=== PATIENT | male | born 1960 | race American Indian/Alaskan Native ===

== ENCOUNTER 2020-05-07 11:06 | Observation (INO) | payer MEDICARE ==
--- NOTE | 2020-05-07 12:12 | Emergency Department Report ---
ED Neuro Deficit HPI - General Chief Complaint: Neuro Symptoms/Deficit Stated Complaint: AMINAH Time Seen by Provider: 05/07/20 11:45 Source: patient, EMS Mode of arrival: Stretcher Limitations: No Limitations - History of Present Illness Initial Comments: [facility]urology Consult [facility] Date of Service: 05/07/2020 11:42:18 Impression: Small Vessel Infarct Comments/Sign-Out: The patient is Not a candidate for alteplase as his last known well is unknown. I will suggest stat CT angiogramOf the head and neck stat along with CT p erfusion studies to rule out large vessel occlusion. Mechanism of Stroke: Possible Thromboembolic Metrics: Last Known Well: Unknown [facility] Notification Time: 05/07/2020 11:41:39 Stamp Time: 05/07/2020 11:42:18 Time First Login Attempt: 05/07/2020 11:45:50 Video Start Time: 05/07/2020 11:45:50 Symptoms: Slurred speech, facial droop NIHSS Start Assessment Time: 05/07/2020 11:56:00 Patient is not a candidate for Alteplase/Activase. Patient was not deemed candidate for Alteplase/Activase thrombolytics because of Last known well is unknown. Video End Time: 05/07/2020 12:06:23 CT head showed no acute hemorrhage or acute core infarct. Lower Likelihood of Large Vessel Occlusion but Following Stat Studies are Recommended ED Physician notified of diagnostic impression and management plan on 05/07/2020 12:07:40 Alteplase/Activase Contraindications: Our recommendations are outlined below. Recommendations: Activate Stroke Protocol Admission/Order Set Stroke/Telemetry Floor Neuro Checks Bedside Swallow Eval DVT Prophylaxis IV Fluids, Normal Saline Head of Bed 30 Degrees Euglycemia and Avoid Hyperthermia (PRN Acetaminophen) Antiplatelet Therapy Recommended Sign Out: Discussed with Emergency Department Provider History of Present Illness: Patient is a 60 year old Male. 60-year-old male with past medical history significant for hypertension, COPD, asthma not on any medications. He does not take antiplatelets on anticoagulants for any reason. He called EMS for chest pain and shortness of breath and when he came to the emergency room it was noticed that he was having slurred speech as well. A stroke alert was called. His last known well is unknown. He is having a mild right facial droop, slurred speech. His CAT scan is negative for bleed. I will suggest CT angiogram of the head and neck and CT perfusion studies to rule out the possibility of a large vessel occlusion. He is not a TPA candidate as his last known well and medications are unknown. Past Medical History: Hypertension Anticoagulant use: No Antiplatelet use: No Examination: 1A: Level of Consciousness - Alert; keenly responsive + 0 1B: Ask Month and Age - 1 Question Right + 1 1C: Blink Eyes & Squeeze Hands - Performs Both Tasks + 0 2: Test Horizontal Extraocular Movements - Normal + 0 3: Test Visual Farris - No Visual Loss + 0 4: Test Facial Palsy (Use Grimace if Obtunded) - Minor paralysis (flat nasolabial fold, smile asymmetry) + 1 5A: Test Left Arm Motor Drift - No Drift for 10 Seconds + 0 5B: Test Right Arm Motor Drift - No Drift for 10 Seconds + 0 6A: Test Left Leg Motor Drift - No Drift for 5 Seconds + 0 6B: Test Right Leg Motor Drift - No Drift for 5 Seconds + 0 7: Test Limb Ataxia (FNF/Heel-Cintron) - No Ataxia + 0 8: Test Sensation - Normal; No sensory loss + 0 9: Test Language/Aphasia - Normal; No aphasia + 0 10: Test Dysarthria - Mild-Moderate Dysarthria: Slurring but can be understood + 1 11: Test Extinction/Inattention - No abnormality + 0 NIHSS Score: 3 Patient/Family was informed the Neurology Consult would happen via TeleHealth consult by way of interactive audio and video telecommunications and consented to receiving care in this manner. Due to the immediate potential for life-threatening deterioration due to underlying acute neurologic illness, I spent 35 minutes providing critical care. This time includes time for face to face visit via telemedicine, review of medical records, imaging studies and discussion of findings with providers, the patient and/or family. Dr Preethi Aguilar [facility] Case [id number] - Related Data Home Medications: Previous Rx's Medication Instructions Recorded Last Taken Type Albuterol Mdi (or & Nicu Only) 2 puff IH QID PRN #8.5 gram 10/29/19 Unknown Rx [ProAir HFA Inhaler] amLODIPine 10 mg PO DAILY #90 tab 10/29/19 Unknown Rx cephALEXin [Keflex] 500 mg PO Q12HR #10 cap 10/29/19 Unknown Rx lisinopriL [Zestril TAB] 20 mg PO QDAY #90 tablet 10/29/19 Unknown Rx Allergies/Adverse Reactions: Allergies Allergy/AdvReac Type Severity Reaction Status Date / Time No Known Allergies Allergy Verified 11/03/15 11:23 ED Review of Systems ROS: Stated complaint: AMINAH Other details as noted in HPI ED Past Medical Hx - Past Medical History Previous Medical History?: Yes Hx Hypertension: Yes Hx Congestive Heart Failure: No Hx Diabetes: No Hx Asthma: Yes Hx COPD: No Hx HIV: No - Surgical History Past Surgical History?: Yes Additional Surgical History: suprapubic cath - Social History Smoking Status: Current Every Day Smoker Substance Use Type: Alcohol, Marijuana - Medications Home Medications: Home Medications Medication Instructions Recorded Confirmed Last Taken Type Albuterol Mdi (or & Nicu Only) 2 puff IH QID PRN #8.5 gram 10/29/19 Unknown Rx [ProAir HFA Inhaler] amLODIPine 10 mg PO DAILY #90 tab 10/29/19 Unknown Rx cephALEXin [Keflex] 500 mg PO Q12HR #10 cap 10/29/19 Unknown Rx lisinopriL [Zestril TAB] 20 mg PO QDAY #90 tablet 10/29/19 Unknown Rx ED Neuro Physical Exam - General Limitations: No Limitations Suspected Stroke: Yes - NIHSS Assessment Interval: Baseline (in er) 1a. Level of Consciousness: alert/keenly responsive 1b. LOC Questions: answers both correctly 1c. LOC Commands: performs tasks correctly 2. Best Gaze: normal 3. Visual: no visual loss 4. Facial Palsy: minor paralysis 5b. Motor Arm Right: no drift 5a. Motor Arm Left: no drift 6a. Motor Leg Left: no drift 6b. Motor Leg Right: no drift 7. Limb Ataxia: absent 8. Sensory: normal 9. Best Language: no aphasia 10. Dysarthria: mild/moderate dysarthria 11. Extinction/Inattention: no abnormality Total Score: 2 Stroke Severity: Minor Stroke ED Course Vital Signs 05/07/20 11:45 Temperature 97.1 F L Pulse Rate 103 H Respiratory 24 Rate Blood Pressure 111/68 O2 Sat by Pulse 89 Oximetry Critical care attestation.: If time is entered above; I have spent that time in minutes in the direct care of this critically ill patient, excluding procedure time. ED Disposition Clinical Impression: CVA (cerebral vascular accident) Disposition: OP ADMIT IP TO THIS HOSP Is pt being admited?: Yes Does the pt Need Aspirin: Yes
[2020-05-07 12:22] LABS: Basophils # (Auto) 0.1 K/mm3 (0.0-0.1); Basophils % (Auto) 0.5 % (0.0-1.8); Eosinophils % (Auto) 0.2 % (0.0-4.3); Hematocrit 38.6 % (35.5-45.6); Hemoglobin 13.1 gm/dl (11.8-15.2); Lymphocytes # (Auto) 0.7 K/mm3 (1.2-5.4); Lymphocytes % (Auto) 6.6 % (13.4-35.0); Mean Corpuscular HGB Conc 34 % (32-34); Mean Corpuscular Volume 95 fl (84-94); Monocytes # (Auto) 0.6 K/mm3 (0.0-0.8); Monocytes % (Auto) 5.8 % (0.0-7.3); Platelet Count 136 K/mm3 (140-440); Red Blood Count 4.07 M/mm3 (3.65-5.03); Red Cell Distribution Width 14.4 % (13.2-15.2)
--- NOTE | 2020-05-07 12:24 | Emergency Department Report ---
ED Neuro Deficit HPI - General Chief Complaint: Neuro Symptoms/Deficit Stated Complaint: AMINAH Time Seen by Provider: 05/07/20 11:45 Source: patient, EMS Mode of arrival: Stretcher Limitations: No Limitations - History of Present Illness Initial Comments: Patient is 60 years old male with history of hypertension, COPD and asthma. Patient brought to the emergency room via EMS from home for evaluation of chest pain and shortness of breath for the last 2 to 3 days. Upon arrival to the emergency room patient with slurred speech and patient denied any history of slurred speech before. Stroke protocol immediately initiated and patient moved to CT for stat CT brain without contrast. Stroke telemetry neurology immediately consulted. Patient is currently 97% on 2 L of oxygen. -: unknown Location: speech, right face History of same: No Place: home - Related Data Home Medications: Previous Rx's Medication Instructions Recorded Last Taken Type Albuterol Mdi (or & Nicu Only) 2 puff IH QID PRN #8.5 gram 10/29/19 Unknown Rx [ProAir HFA Inhaler] amLODIPine 10 mg PO DAILY #90 tab 10/29/19 Unknown Rx cephALEXin [Keflex] 500 mg PO Q12HR #10 cap 10/29/19 Unknown Rx lisinopriL [Zestril TAB] 20 mg PO QDAY #90 tablet 10/29/19 Unknown Rx Allergies/Adverse Reactions: Allergies Allergy/AdvReac Type Severity Reaction Status Date / Time No Known Allergies Allergy Verified 11/03/15 11:23 ED Review of Systems ROS: Stated complaint: AMINAH Other details as noted in HPI Comment: All other systems reviewed and negative Constitutional: denies: chills, fever Respiratory: shortness of breath, SOB with exertion, SOB at rest. denies: cough, wheezing Cardiovascular: chest pain Gastrointestinal: denies: abdominal pain, nausea, vomiting, diarrhea, constipation, hematemesis, melena, hematochezia Musculoskeletal: denies: back pain Neurological: denies: headache, weakness, numbness, paresthesias, confusion ED Past Medical Hx - Past Medical History Previous Medical History?: Yes Hx Hypertension: Yes Hx Congestive Heart Failure: No Hx Diabetes: No Hx Asthma: Yes Hx COPD: No Hx HIV: No - Surgical History Past Surgical History?: Yes Additional Surgical History: suprapubic cath - Social History Smoking Status: Current Every Day Smoker Substance Use Type: Alcohol, Marijuana - Medications Home Medications: Home Medications Medication Instructions Recorded Confirmed Last Taken Type Albuterol Mdi (or & Nicu Only) 2 puff IH QID PRN #8.5 gram 10/29/19 Unknown Rx [ProAir HFA Inhaler] amLODIPine 10 mg PO DAILY #90 tab 10/29/19 Unknown Rx cephALEXin [Keflex] 500 mg PO Q12HR #10 cap 10/29/19 Unknown Rx lisinopriL [Zestril TAB] 20 mg PO QDAY #90 tablet 10/29/19 Unknown Rx ED Neuro Physical Exam - General Limitations: No Limitations General appearance: alert, in no apparent distress Suspected Stroke: Yes - Head Head exam: Present: atraumatic, normocephalic, normal inspection - Eye Eye exam: Present: normal appearance - ENT ENT exam: Present: normal exam, normal orophraynx, mucous membranes moist - Neck Neck exam: Present: normal inspection, full ROM. Absent: tenderness, meningismus - Respiratory Respiratory exam: Present: normal lung sounds bilaterally - Cardiovascular Cardiovascular Exam: Present: regular rate, normal rhythm, normal heart sounds - GI/Abdominal GI/Abdominal exam: Present: soft, normal bowel sounds. Absent: distended, tenderness, guarding, rebound, rigid, organomegaly, mass, bruit, pulsatile mass, hernia - Extremities Exam Extremities exam: Present: normal inspection, full ROM, normal capillary refill. Absent: tenderness, pedal edema, joint swelling, calf tenderness - Back Exam Back exam: Present: normal inspection, full ROM. Absent: CVA tenderness (R), CVA tenderness (L) - Neurological Exam Neurological exam: Present: alert, oriented X3 - NIHSS Assessment Interval: Baseline 1a. Level of Consciousness: alert/keenly responsive 1b. LOC Questions: answers both correctly 1c. LOC Commands: performs tasks correctly 2. Best Gaze: normal 3. Visual: no visual loss 4. Facial Palsy: minor paralysis 5b. Motor Arm Right: no drift 5a. Motor Arm Left: no drift 6a. Motor Leg Left: no drift 6b. Motor Leg Right: no drift 7. Limb Ataxia: absent 8. Sensory: normal 9. Best Language: mild/moderate aphasia 10. Dysarthria: mild/moderate dysarthria 11. Extinction/Inattention: no abnormality Total Score: 3 Stroke Severity: Minor Stroke - Psychiatric Psychiatric exam: Present: normal mood - Skin Skin exam: Present: warm, intact, normal color ED Course Vital Signs 05/07/20 11:45 Temperature 97.1 F L Pulse Rate 103 H Respiratory 24 Rate Blood Pressure 111/68 O2 Sat by Pulse 89 Oximetry - Lab Data Result diagrams: 05/07/20 12:15 05/07/20 12:15 Lab Results 05/07/20 05/07/20 05/07/20 Range/Units 12:15 12:15 12:15 WBC 11.2 H (4.5-11.0) K/mm3 RBC 4.07 (3.65-5.03) M/mm3 Hgb 13.1 (11.8-15.2) gm/dl Hct 38.6 (35.5-45.6) % MCV 95 H (84-94) fl MCH 32 (28-32) pg MCHC 34 (32-34) % RDW 14.4 (13.2-15.2) % Plt Count 136 L (140-440) K/mm3 Lymph % (Auto) 6.6 L (13.4-35.0) % Luna % (Auto) 5.8 (0.0-7.3) % Eos % (Auto) 0.2 (0.0-4.3) % Baso % (Auto) 0.5 (0.0-1.8) % Lymph # 0.7 L (1.2-5.4) K/mm3 Luna # 0.6 (0.0-0.8) K/mm3 Eos # 0.0 (0.0-0.4) K/mm3 Baso # 0.1 (0.0-0.1) K/mm3 Seg Neutrophils % 86.9 H (40.0-70.0) % Seg Neutrophils # 9.8 H (1.8-7.7) K/mm3 PT (12.2-14.9) Sec. INR (0.87-1.13) APTT (24.2-36.6) Sec. Thrombin Time 14.6 L (15.1-19.6) Sec. ABG pH (7.350-7.450) pH Units ABG pCO2 mm Hg ABG pO2 (80.0-90.0) mm Hg ABG HCO3 (20.0-26.0) mmol/L ABG O2 Saturation (95.0-99.0) % ABG O2 Content (0.0-44) ABG Base Excess (-2.0-3.0) mmol/L ABG Hemoglobin (14.0-18.0) gm/dl ABG Carboxyhemoglobin (0.0-5.0) % ABG Methemoglobin (0.0-1.5) % Oxyhemoglobin (95.0-99.0) % FiO2 % Sodium 140 (137-145) mmol/L Potassium 3.7 (3.6-5.0) mmol/L Chloride 106.5 (98-107) mmol/L Carbon Dioxide 20 L (22-30) mmol/L Anion Gap 17 mmol/L BUN 19 (9-20) mg/dL Creatinine 1.0 (0.8-1.3) mg/dL Estimated GFR > 60 ml/min BUN/Creatinine Ratio 19 % Glucose 121 H (75-100) mg/dL Calcium 8.9 (8.4-10.2) mg/dL Total Bilirubin (0.1-1.2) mg/dL Direct Bilirubin (0-0.2) mg/dL Indirect Bilirubin mg/dL AST (5-40) units/L ALT (7-56) units/L Alkaline Phosphatase (35-129) units/L Troponin T < 0.010 (0.00-0.029) ng/mL NT-Pro-B Natriuret Pep 336.0 (0-900) pg/mL Total Protein (6.3-8.2) g/dL Albumin (3.9-5) g/dL Albumin/Globulin Ratio % 05/07/20 05/07/20 05/07/20 Range/Units 12:15 12:15 13:43 WBC (4.5-11.0) K/mm3 RBC (3.65-5.03) M/mm3 Hgb (11.8-15.2) gm/dl Hct (35.5-45.6) % MCV (84-94) fl MCH (28-32) pg MCHC (32-34) % RDW (13.2-15.2) % Plt Count (140-440) K/mm3 Lymph % (Auto) (13.4-35.0) % Luna % (Auto) (0.0-7.3) % Eos % (Auto) (0.0-4.3) % Baso % (Auto) (0.0-1.8) % Lymph # (1.2-5.4) K/mm3 Luna # (0.0-0.8) K/mm3 Eos # (0.0-0.4) K/mm3 Baso # (0.0-0.1) K/mm3 Seg Neutrophils % (40.0-70.0) % Seg Neutrophils # (1.8-7.7) K/mm3 PT 14.4 (12.2-14.9) Sec. INR 1.11 (0.87-1.13) APTT 24.8 (24.2-36.6) Sec. Thrombin Time (15.1-19.6) Sec. ABG pH 7.397 (7.350-7.450) pH Units ABG pCO2 35.3 mm Hg ABG pO2 48.2 L (80.0-90.0) mm Hg ABG HCO3 21.2 (20.0-26.0) mmol/L ABG O2 Saturation 84.5 L (95.0-99.0) % ABG O2 Content 14.0 (0.0-44) ABG Base Excess -3.1 L (-2.0-3.0) mmol/L ABG Hemoglobin 12.4 L (14.0-18.0) gm/dl ABG Carboxyhemoglobin 4.4 (0.0-5.0) % ABG Methemoglobin 0.7 (0.0-1.5) % Oxyhemoglobin 80.2 L (95.0-99.0) % FiO2 21 % Sodium (137-145) mmol/L Potassium (3.6-5.0) mmol/L Chloride (98-107) mmol/L Carbon Dioxide (22-30) mmol/L Anion Gap mmol/L BUN (9-20) mg/dL Creatinine (0.8-1.3) mg/dL Estimated GFR ml/min BUN/Creatinine Ratio % Glucose (75-100) mg/dL Calcium (8.4-10.2) mg/dL Total Bilirubin 0.50 (0.1-1.2) mg/dL Direct Bilirubin < 0.2 (0-0.2) mg/dL Indirect Bilirubin 0.3 mg/dL AST 12 (5-40) units/L ALT 11 (7-56) units/L Alkaline Phosphatase 84 (35-129) units/L Troponin T (0.00-0.029) ng/mL NT-Pro-B Natriuret Pep (0-900) pg/mL Total Protein 6.7 (6.3-8.2) g/dL Albumin 4.0 (3.9-5) g/dL Albumin/Globulin Ratio 1.5 % - EKG Data -: EKG Interpreted by Me EKG shows normal: sinus rhythm Rate: normal Interpretation: no acute changes - Radiology Data Radiology results: report reviewed - Medical Decision Making Patient is 60 years old male with history of hypertension, COPD and asthma. Patient brought to the emergency room via EMS from home for evaluation of chest pain and shortness of breath for the last 2 to 3 days. Upon arrival to the emergency room patient with slurred speech and patient denied any history of slurred speech before. Stroke protocol immediately initiated and patient moved to CT for stat CT brain without contrast. Stroke telemetry neurology immediatel y consulted. Patient is currently 97% on [address] Aguilar, stroke neurologist stated that patient is not a TPA candidate since he does not have a known time of onset. She advised to order a CTA brain and neck to rule out large occlusive disease. Patient received Solu-Medrol, albuterol and Atrovent for his COPD and wheezing. I discussed the patient is Dr. Bronson, she agreed to admit the patient to medical service for further management. Critical Care Time: Yes Critical care time in (mins) excluding proc time.: 30 Critical care attestation.: If time is entered above; I have spent that time in minutes in the direct care of this critically ill patient, excluding procedure time. ED Disposition Clinical Impression: CVA (cerebral vascular accident), COPD exacerbation Disposition: OP ADMIT IP TO THIS HOSP Is pt being admited?: Yes Condition: Stable Instructions: Chronic Obstructive Pulmonary Disease (ED) Referrals: PRIMARY CARE, [Primary Care Provider] - 3-5 Days
--- NOTE | 2020-05-07 12:30 | Cat Scan Report ---
CT HEAD WITHOUT CONTRAST INDICATION / CLINICAL INFORMATION: Slurred speech, code stroke. TECHNIQUE: All CT scans at this location are performed using CT dose reduction for ALARA by means of automated e xposure control. COMPARISON: None available. FINDINGS: HEMORRHAGE: None. EXTRA-AXIAL SPACES: Normal in size and morphology for the patient's age. VENTRICULAR SYSTEM: Normal in size and morphology for the patient's age. CEREBRAL PARENCHYMA: Hyperdense left MCA sign with preservation of duarte-white matter interface. No in sular ribbon sign. Mild microangiopathy. MIDLINE SHIFT OR HERNIATION: None. CEREBELLUM / BRAINSTEM: No significant abnormality. ORBITS: Normal as visualized. SOFT TISSUES of HEAD: No significant abnormality. CALVARIUM: No significant abnormality. PARANASAL SINUSES / MASTOID AIR CELLS: Normal as visualized. ADDITIONAL FINDINGS: None. IMPRESSION: 1. Hyperdense left MCA sign suggestive for left MCA infarct. No other supporting evidence for CVA. No intracranial bleed 2. Mild microangiopathy CODE STROKE: Time of Communication (KILN PACKER/CDT): 11:20 AM central time 05/07/2020 Licensed Practitioner Receiving Report: Cristian Benz Signer Name: Avtar Coronado MD Signed: 05/07/2020 12:25 PM Workstation Name: [id number]
[2020-05-07 12:37] LABS: INR 1.11 (0.87-1.13); Partial Thromboplastin Time 24.8 Sec. (24.2-36.6)
[2020-05-07 12:52] LABS: BUN/Creatinine Ratio 19; Blood Urea Nitrogen 19 mg/dL (9-20); Calcium 8.9 mg/dL (8.4-10.2); Hemolysis Index 6
[2020-05-07 12:56] LABS: Alanine Aminotransferase 11 units/L (7-56)
[2020-05-07 13:00] LABS: Bilirubin,Direct < 0.2 mg/dL (0-0.2)
[2020-05-07 14:01] LABS: ABG Base Excess -3.1 mmol/L (-2.0-3.0); ABG HCO3 21.2 mmol/L (20.0-26.0); ABG Methemoglobin 0.7 % (0.0-1.5); ABG Oxygen Saturation 84.5 % (95.0-99.0); ABG PCO2 35.3 mm Hg; ABG PH 7.397 pH Units (7.350-7.450); ABG PO2 48.2 mm Hg (80.0-90.0)
[2020-05-07] MEDS ORDERED: IPRATROPIUM 0.02% NEBU 2.5 ML IH ONE (14:07)
[2020-05-07] MEDS ORDERED: ALBUTEROL 2.5 MG/3 ML NEBU IH ONE (14:07)
--- NOTE | 2020-05-07 15:06 | Cat Scan Report ---
CTA HEAD AND NECK WITH CONTRAST HISTORY: Stroke, slurred speech. COMPARISON: None. TECHNIQUE: All CT scans at this location are performed using CT dose reduction for ALARA by means of automated exposure control.. 3-D/MIP reformats postprocessed. Percentage stenosis is determined by d irect quantitative measurements of diseased internal carotid artery diameter compared with normal dis jose internal carotid artery reference segments or by criteria similar to NASCET where applicable. CONTRAST: 100 ml of Omnipaque 350 FINDINGS: CTA HEAD: Intracranial vertebral arteries: No significant abnormality. Basilar artery: No significant abnormality. Posterior cerebral arteries: No significant abnormality. Intracranial internal carotid arteries: There is atherosclerotic plaque in both carotid siphons witho ut flow-limiting stenosis. Anterior cerebral arteries: No significant abnormality. Middle cerebral arteries: No significant abnormality. Dural venous sinuses:Not optimally opacified. No significant abnormality. CTA NECK: Aortic arch: No significant abnormality. Cervical vertebral arteries: No significant abnormality. Common carotid arteries: No significant abnormality. Cervical internal carotid arteries: There is mild atherosclerotic plaque in both carotid bulbs withou t significant stenosis. Additional findings: There is prominent bullous change in both lung apices. There is mild degenerativ e disc disease at C5-6 and C6-7 in the cervical spine. There are no aggressive appearing bone lesions . IMPRESSION: 1. No flow limiting stenosis or large vessel occlusion in the head or neck arteries. Signer Name: Oscar Fournier MD Signed: 05/07/2020 3:02 PM Workstation Name: [id number]
[2020-05-07] MEDS ORDERED: methylPREDNISolone Sod Succinate 125 MG/2 ML INJ IV ONE (15:10)
[2020-05-07] MEDS ORDERED: methylPREDNISolone Sod Succinate 125 MG/2 ML INJ ONE (16:06)
[2020-05-07] MEDS ORDERED: ONDANSETRON 4 MG/2 ML INJ IV PRN (16:35)
[2020-05-07] MEDS ORDERED: METOCLOPRAMIDE 10 MG TAB PO PRN (16:35)
[2020-05-07] MEDS ORDERED: ACETAMINOPHEN 325 MG TAB PO PRN (16:35)
[2020-05-07] MEDS ORDERED: MAGNESIUM HYDROXIDE (MOM) ORAL LIQD UDC PO PRN (16:35)
[2020-05-07] MEDS ORDERED: oxyCODONE /ACETAMINOPHEN 5-325MG TAB PO PRN (16:35)
[2020-05-07] MEDS ORDERED: ALBUTEROL 8.5 GM MDI INHALATION IH PRN (16:35)
--- NOTE | 2020-05-07 16:35 | History and Physical Report ---
History of Present Illness Date of examination: 05/07/20 Date of admission: 05/07/20 15:52 Chief complaint: SOB and slurred speech History of present illness: Patient is 60 years old male with history of hypertension, COPD/asthma, tobacco abuse who brought to the emergency room via EMS from home for evaluation of shortness of breath for the last 2 to 3 days. Upon arrival to the emergency room patient noted with slurred speech and Stroke protocol immediately i nitiated. Obtained CT brain without contrast showed hyperdensity along with left MCA, CTA head/neck showed no major vessel occlusion. Stroke telemetry neurology immediately consulted. Patient is currently 97% on 2 L of oxygen. Currently neurology recommended no TPA and recommended to admit the patient with stroke protocol. During this encounter patient did not have any other neurological deficit. Patient is being admitted for further evaluation and management. - Past Medical History Previous Medical History?: Yes Hx Hypertension: Yes Hx Congestive Heart Failure: No Hx Diabetes: No Hx Asthma: Yes Hx COPD: No Hx HIV: No - Surgical History Past Surgical History?: Yes Additional Surgical History: suprapubic cath - Social History Smoking Status: Current Every Day Smoker Substance Use Type: Alcohol, Marijuana -Family History; father has history of hypertension and heart disease Review of System: Constitutional: no fever, no chills, no weight loss Ears, eyes, nose, mouth and throat: no nasal congestion, no nasal discharge, no sinus pressure, no vision change, no red eye. Neck: No neck pain or rigidity. Cardiovascular: No chest pain, no orthopnea, no palpitations, no leg swelling Respiratory: + shortness of breath, no cough, no congestion, no wheezing Gastrointestinal: no abdominal pain, no nausea, no vomiting Genitourinary : no dysuria, no hematuria Musculoskeletal: no joint swelling or muscle ache Integumentary: no rash, no pruritis Neurological: no parathesias, no numbness, no tingling, + slurred speech Endocrine: no cold or heat intolerance, no polyuria or polydipsia Hematologic/Lymphatic: no easy bruising, no easy bleeding, no gland swelling Allergic/Immunologic: no urticaria, no angioedema. Medications and Allergies Allergies Allergy/AdvReac Type Severity Reaction Status Date / Time No Known Allergies Allergy Verified 11/03/15 11:23 Home Medications Medication Instructions Recorded Confirmed Last Taken Type Albuterol Mdi (or & Nicu Only) 2 puff IH QID PRN #8.5 gram 10/29/19 Unknown Rx [ProAir HFA Inhaler] amLODIPine 10 mg PO DAILY #90 tab 10/29/19 Unknown Rx cephALEXin [Keflex] 500 mg PO Q12HR #10 cap 10/29/19 Unknown Rx lisinopriL [Zestril TAB] 20 mg PO QDAY #90 tablet 10/29/19 Unknown Rx Exam - Physical Exam Narrative exam: GENERAL: well-developed and well-nourished lying on bed appeared to be in no discomfort. HEENT: Normocephalic. Atraumatic. No conjunctival congestion or icterus. Patient has moist mucous membranes. NECK: Supple. Trachea midline. CHEST/LUNGS: Clear to auscultated bilaterally, breathing nonlabored. No wheezes crackles or rhonchi. HEART/CARDIOVASCULAR: Regular in rate and rhythm. S1 and S2 positive. ABDOMEN: Abdomen is soft, nontender. Patient has normal bowel sounds. SKIN: There is no rash. Warm and dry. NEURO: No focal motor deficit. Follows command. MUSCULOSKELETAL: No joint effusion or tenderness. EXTRIMITY: No edema, no cyanosis or clubbing. PSYCH: Cooperative. - Constitutional Vitals: Temp Pulse Resp BP Pulse Ox 97.1 F L 85 23 111/68 89 05/07/20 11:45 05/07/20 15:40 05/07/20 15:40 05/07/20 11:45 05/07/20 11:45 HEART Score - HEART Score Troponin: Troponin T < 0.010 ng/mL (0.00-0.029) 05/07/20 12:15 Results - Labs CBC & Chem 7: 05/07/20 12:15 05/07/20 12:15 Labs: Abnormal lab results 05/07/20 05/07/20 05/07/20 Range/Units 12:15 12:15 12:15 WBC 11.2 H (4.5-11.0) K/mm3 MCV 95 H (84-94) fl Plt Count 136 L (140-440) K/mm3 Lymph % (Auto) 6.6 L (13.4-35.0) % Lymph # 0.7 L (1.2-5.4) K/mm3 Seg Neutrophils % 86.9 H (40.0-70.0) % Seg Neutrophils # 9.8 H (1.8-7.7) K/mm3 Thrombin Time 14.6 L (15.1-19.6) Sec. ABG pO2 (80.0-90.0) mm Hg ABG O2 Saturation (95.0-99.0) % ABG Base Excess (-2.0-3.0) mmol/L ABG Hemoglobin (14.0-18.0) gm/dl Oxyhemoglobin (95.0-99.0) % Carbon Dioxide 20 L (22-30) mmol/L Glucose 121 H (75-100) mg/dL 05/07/20 Range/Units 13:43 WBC (4.5-11.0) K/mm3 MCV (84-94) fl Plt Count (140-440) K/mm3 Lymph % (Auto) (13.4-35.0) % Lymph # (1.2-5.4) K/mm3 Seg Neutrophils % (40.0-70.0) % Seg Neutrophils # (1.8-7.7) K/mm3 Thrombin Time (15.1-19.6) Sec. ABG pO2 48.2 L (80.0-90.0) mm Hg ABG O2 Saturation 84.5 L (95.0-99.0) % ABG Base Excess -3.1 L (-2.0-3.0) mmol/L ABG Hemoglobin 12.4 L (14.0-18.0) gm/dl Oxyhemoglobin 80.2 L (95.0-99.0) % Carbon Dioxide (22-30) mmol/L Glucose (75-100) mg/dL Assessment and Plan Acute Left MCA CVA -- We will admit the patient to remote telemetry - We'll place on aspirin and statin, will consult neurology - CT scan of the head obtained in the ER and shows hyperdense area at the left MCA distribution - We will get MRI of the head, 2-D echocardiogram, neuro consult - We will also get hemoglobin A1c level and fasting lipid panel - Allow permissive hypertension, will hold BP meds if patient is taking any at home - We'll place on GI prophylaxis to avoid stress ulcer - Consult PTOT and speech therapist - Further management will be based on pending lab results and imaging studies CT head: 1. Hyperdense left MCA sign suggestive for left MCA infarct. No other supporting evidence for CVA. No intracranial bleed 2. Mild microangiopathy CTA head/neck; 1. No flow limiting stenosis or large vessel occlusion in the head or neck arteries. COPD with exacerbation - Will provide scheduled nebulizer breathing treatment and as needed - Place on empiric steroid and antibiotic - will get sputum culture, chest x-ray was unremarkable - Provide supplemental oxygen to keep oxygen saturation above 92% - Consider to consult pulmonary if no improvement in next 24 hours Hypertension - We will resume home medications from tomorrow, monitor BP for now - Provide DVT prophylaxis with Lovenox.
[2020-05-07] MEDS ORDERED: ENOXAPARIN 40 MG/0.4 ML INJ SUB-Q ONE (22:12)
[2020-05-07] MEDS ORDERED: DOCUSATE SODIUM 100 MG CAP ONE (22:13)
[2020-05-07] MEDS: FAMOTIDINE 20 MG/2 ML INJ IV SCH (22:14)
[2020-05-07] MEDS ORDERED: FAMOTIDINE 20 MG/2 ML INJ IV ONE (22:14)
[2020-05-07] MEDS: ENOXAPARIN 40 MG/0.4 ML INJ SUB-Q SCH (22:15)
[2020-05-07] MEDS: DOCUSATE SODIUM 100 MG CAP PO SCH (22:15)
[2020-05-08] MEDS: IPRATROPIUM/ALBUTEROL SULFATE 3 ML AMPUL.NEB IH SCH ×5 (00:28→20:32)
[2020-05-08 05:55] LABS: Chol/HDL Ratio 2.21 %
[2020-05-08] MEDS: LISINOPRIL 20 MG TAB PO SCH (09:53)
[2020-05-08] MEDS: DOCUSATE SODIUM 100 MG CAP PO SCH ×2 (09:53→22:46)
[2020-05-08] MEDS: methylPREDNISolone Sod Succinate 40 MG/1 ML INJ IV SCH (09:53)
[2020-05-08] MEDS: ASPIRIN 325 MG TAB PO SCH (09:53)
[2020-05-08] MEDS: amLODIPine 10 MG TAB PO SCH (09:54)
[2020-05-08] MEDS: FAMOTIDINE 20 MG/2 ML INJ IV SCH (09:54)
--- NOTE | 2020-05-08 16:08 | Magnetic Resonance Report ---
MRI BRAIN WITHOUT CONTRAST INDICATION / CLINICAL INFORMATION: stroke. TECHNIQUE: Multiplanar, multisequence MR images of the brain were obtained. Contrast: mL administered intravenously. COMPARISON: Head CT 05/07/2020 and CTA head 05/07/2020 FINDINGS: BRAIN / INTRACRANIAL CONTENTS: Ventricles and cortical sulci are within normal limits in size and con figuration. There is no mass effect. No evidence of intracranial hemorrhage or extra-axial fluid mary ection is seen. Confluent periventricular and small, scattered subcortical and deep white matter hype rintensities are noted. These are consistent with presence of microvascular ischemic change. No addit ional areas of abnormal brain parenchymal signal intensity are identified. There is no indication of remote cortical infarction. Diffusion weighted scans are negative. There is no indication of acute is chemic injury. The brainstem and cerebellum have an unremarkable appearance. MIDLINE STRUCTURES:No abnormalities are seen to involve the pituitary gland. Pineal region has an unr emarkable appearance. CRANIOCERVICAL JUNCTION: No abnormalities are identified at the craniocervical junction. VASCULAR FLOW-VOIDS: Normal flow-voids are present within the major intracranial vessels. ORBITS: Evaluation is limited secondary to ocular movement. SINUSES / MASTOIDS: There is no indication of inflammatory disease in the paranasal sinuses or mastoi d air cells. ADDITIONAL FINDINGS: None. IMPRESSION: 1. No significant abnormality on MRI brain. Signer Name: Bon Barrios MD Signed: 05/08/2020 4:03 PM Workstation Name: [id number]
--- NOTE | 2020-05-08 18:08 | Progress Note ---
Assessment and Plan - Patient Problems (1) CVA (cerebral vascular accident) Current Visit: Yes Status: Acute Qualifiers: Precerebral and cerebral artery: middle cerebral artery Laterality of affected vessel: left Plan to address problem: CVA protocol: Antiplatelet therapy, carotid Doppler, physical therapy consulted, Occupational Therapy consulted, speech therapy consulted, supportive care. Statin therapy, discharge planning in a.m. (2) Hemiparesis, right Current Visit: Yes Status: Acute Plan to address problem: Secondary to CVA. Supportive care, physical therapy consulted. (3) COPD exacerbation Current Visit: Yes Status: Acute Plan to address problem: Supplemental oxygen, steroid therapy, supportive care, pulse oximetry, pulmonary toilet. (4) DVT prophylaxis Current Visit: No Status: Acute Plan to address problem: SCD to bilateral lower extremities while in bed. Prophylactic anticoagulation. History Interval history: 60 YO Male HD #2 with L MCA CVA complicated by RHP on CVA protocol, COPD With acute Exacerbation. Patient resting comfortably in bed. Patient states that his breathing is improved today. No reported nursing events. Patient denies pain. Hospitalist Physical - Constitutional Vitals: Temp Pulse Resp BP Pulse Ox 98.4 F 81 18 147/84 96 05/08/20 11:35 05/08/20 13:28 05/08/20 13:28 05/08/20 11:35 05/08/20 11:35 General appearance: Present: no acute distress - EENT Eyes: Present: PERRL ENT: hearing intact - Neck Neck: Present: supple - Respiratory Respiratory: bilateral: diminished - Cardiovascular Rhythm: regular Heart Sounds: Present: S1 & S2 - Extremities Extremities: no ischemia Peripheral Pulses: within normal limits - Abdominal General gastrointestinal: soft, non-tender, non-distended - Integumentary Integumentary: Present: clear, dry - Psychiatric Psychiatric: appropriate mood/affect - Neurologic Neurologic: no CNII-XII intact, focal deficits, no moves all extremities, no gait normal HEART Score - HEART Score Troponin: Troponin T < 0.010 ng/mL (0.00-0.029) 05/07/20 12:15 Results - Labs CBC & Chem 7: 05/07/20 12:15 05/07/20 12:15 Labs: Laboratory Last Values WBC 11.2 K/mm3 (4.5-11.0) H 05/07/20 12:15 RBC 4.07 M/mm3 (3.65-5.03) 05/07/20 12:15 Hgb 13.1 gm/dl (11.8-15.2) 05/07/20 12:15 Hct 38.6 % (35.5-45.6) 05/07/20 12:15 MCV 95 fl (84-94) H 05/07/20 12:15 MCH 32 pg (28-32) 05/07/20 12:15 MCHC 34 % (32-34) 05/07/20 12:15 RDW 14.4 % (13.2-15.2) 05/07/20 12:15 Plt Count 136 K/mm3 (140-440) L 05/07/20 12:15 Lymph % (Auto) 6.6 % (13.4-35.0) L 05/07/20 12:15 [place] % (Auto) 5.8 % (0.0-7.3) 05/07/20 12:15 Eos % (Auto) 0.2 % (0.0-4.3) 05/07/20 12:15 Baso % (Auto) 0.5 % (0.0-1.8) 05/07/20 12:15 Lymph # 0.7 K/mm3 (1.2-5.4) L 05/07/20 12:15 [place] # 0.6 K/mm3 (0.0-0.8) 05/07/20 12:15 Eos # 0.0 K/mm3 (0.0-0.4) 05/07/20 12:15 Baso # 0.1 K/mm3 (0.0-0.1) 05/07/20 12:15 Seg Neutrophils % 86.9 % (40.0-70.0) H 05/07/20 12:15 Seg Neutrophils # 9.8 K/mm3 (1.8-7.7) H 05/07/20 12:15 PT 14.4 Sec. (12.2-14.9) 05/07/20 12:15 INR 1.11 (0.87-1.13) 05/07/20 12:15 APTT 24.8 Sec. (24.2-36.6) 05/07/20 12:15 Thrombin Time 14.6 Sec. (15.1-19.6) L 05/07/20 12:15 ABG pH 7.397 pH Units (7.350-7.450) 05/07/20 13:43 ABG pCO2 35.3 mm Hg 05/07/20 13:43 ABG pO2 48.2 mm Hg (80.0-90.0) L 05/07/20 13:43 ABG HCO3 21.2 mmol/L (20.0-26.0) 05/07/20 13:43 ABG O2 Saturation 84.5 % (95.0-99.0) L 05/07/20 13:43 ABG O2 Content 14.0 (0.0-44) 05/07/20 13:43 ABG Base Excess -3.1 mmol/L (-2.0-3.0) L 05/07/20 13:43 ABG Hemoglobin 12.4 gm/dl (14.0-18.0) L 05/07/20 13:43 ABG Carboxyhemoglobin 4.4 % (0.0-5.0) 05/07/20 13:43 ABG Methemoglobin 0.7 % (0.0-1.5) 05/07/20 13:43 Oxyhemoglobin 80.2 % (95.0-99.0) L 05/07/20 13:43 FiO2 21 % 05/07/20 13:43 Sodium 140 mmol/L (137-145) 05/07/20 12:15 Potassium 3.7 mmol/L (3.6-5.0) 05/07/20 12:15 Chloride 106.5 mmol/L (98-107) 05/07/20 12:15 Carbon Dioxide 20 mmol/L (22-30) L 05/07/20 12:15 Anion Gap 17 mmol/L 05/07/20 12:15 BUN 19 mg/dL (9-20) 05/07/20 12:15 Creatinine 1.0 mg/dL (0.8-1.3) 05/07/20 12:15 Estimated GFR > 60 ml/min 05/07/20 12:15 BUN/Creatinine Ratio 19 % 05/07/20 12:15 Glucose 121 mg/dL (75-100) H 05/07/20 12:15 Hemoglobin A1c 5.2 % (4-6) 05/08/20 04:43 Calcium 8.9 mg/dL (8.4-10.2) 05/07/20 12:15 Total Bilirubin 0.50 mg/dL (0.1-1.2) 05/07/20 12:15 Direct Bilirubin < 0.2 mg/dL (0-0.2) 05/07/20 12:15 Indirect Bilirubin 0.3 mg/dL 05/07/20 12:15 AST 12 units/L (5-40) 05/07/20 12:15 ALT 11 units/L (7-56) 05/07/20 12:15 Alkaline Phosphatase 84 units/L (35-129) 05/07/20 12:15 Troponin T < 0.010 ng/mL (0.00-0.029) 05/07/20 12:15 NT-Pro-B Natriuret Pep 336.0 pg/mL (0-900) 05/07/20 12:15 Total Protein 6.7 g/dL (6.3-8.2) 05/07/20 12:15 Albumin 4.0 g/dL (3.9-5) 05/07/20 12:15 Albumin/Globulin Ratio 1.5 % 05/07/20 12:15 Triglycerides 47 mg/dL (2-149) 05/08/20 04:43 Cholesterol 122 mg/dL (50-199) 05/08/20 04:43 LDL Cholesterol Direct 66 mg/dL (50-130) 05/08/20 04:43 HDL Cholesterol 55 mg/dL (40-59) 05/08/20 04:43 Cholesterol/HDL Ratio 2.21 % 05/08/20 04:43 Ashby/IV: Voiding Method Suprapubic catheter IV Catheter Type [Left Forearm INT / Saline Lock ] IV Catheter Type [Right INT / Saline Lock Antecubital] Active Medications - Current Medications Current Medications: Generic Name Dose Route Start Last Admin Trade Name Freq PRN Reason Stop Dose Admin Acetaminophen 650 mg 05/07/20 16:35 Tylenol PO Q4H PRN Pain, Mild (1-3) Albuterol/Ipratropium 1 ampul 05/07/20 20:00 05/08/20 13:28 Duoneb *Not For Prn Use* IH 1 ampul Q6HRT BLACK Administration Amlodipine Besylate 10 mg 08/30/20 10:00 05/08/20 09:54 Amlodipine PO 10 mg DAILY BLACK Administration Aspirin 325 mg 05/08/20 10:00 05/08/20 09:53 Aspirin PO 325 mg QDAY [facility] Administration Atorvastatin Calcium 80 mg 05/07/20 22:00 05/07/20 22:14 Lipitor PO 80 mg QHS BLACK Administration Bisacodyl 10 mg 05/07/20 16:35 Dulcolax OK QDAY PRN Constipation Docusate Sodium 100 mg 05/07/20 22:00 05/08/20 09:53 Colace PO 100 mg BID [facility] Administration Enoxaparin Sodium 40 mg 05/07/20 22:00 05/07/20 22:15 Enoxaparin SUB-Q 40 mg QDAY@2200 [facility] Administration Famotidine 20 mg 05/08/20 22:00 Pepcid PO BID [facility] Lisinopril 20 mg 05/08/20 10:00 05/08/20 09:53 Zestril PO 20 mg QDAY [facility] Administration Magnesium Hydroxide 30 ml 05/07/20 16:35 Milk Of Magnesia PO Q4H PRN Constipation Methylprednisolone Sodium Succinate 40 mg 05/08/20 10:00 05/08/20 09:53 Solu-Medrol IV 40 mg Q24HR [facility] Administration Metoclopramide HCl 10 mg 05/07/20 16:35 Reglan PO Q6H PRN Nausea And Vomiting Ondansetron HCl 4 mg 05/07/20 16:35 Zofran IV Q8H PRN Nausea And Vomiting Oxycodone/Acetaminophen 1 tab 05/07/20 16:35 05/08/20 13:53 Percocet 5/325 PO 1 tab Q6H PRN Administration Pain, Moderate (4-6) Sodium Chloride 10 ml 05/07/20 16:35 05/08/20 09:54 Sodium Chloride Flush Syringe 10 Ml IV 10 ml PRN PRN Administration LINE FLUSH Nutrition/Malnutrition Assess - Dietary Evaluation Nutrition/Malnutrition Findings: Nutrition Notes Start: 05/08/20 10:29 Freq: Status: Active Protocol: Document 05/08/20 10:29 LP (Rec: 05/08/20 10:30 LP [id number]) Nutrition Notes Need for Assessment generated from: MD Order Initial or Follow up Brief Note Current Diagnosis Hypertension,Stroke Subjective/Other Information Consult for diet education. Unable to see pt at time of visit. Nutrition Intervention Follow-Up By: 05/09/20 Additional Comments Follow for diet education
[2020-05-08] MEDS: ENOXAPARIN 40 MG/0.4 ML INJ SUB-Q SCH (22:46)
[2020-05-08] MEDS: FAMOTIDINE 20 MG TAB PO SCH (22:46)
[2020-05-09] MEDS: IPRATROPIUM/ALBUTEROL SULFATE 3 ML AMPUL.NEB IH SCH ×3 (07:15→14:19)
[2020-05-09 08:30] VITALS: BP 154/105
[2020-05-09] MEDS: amLODIPine 10 MG TAB PO SCH (10:15)
[2020-05-09] MEDS: methylPREDNISolone Sod Succinate 40 MG/1 ML INJ IV SCH (10:15)
[2020-05-09] MEDS: FAMOTIDINE 20 MG TAB PO SCH (10:15)
[2020-05-09] MEDS: ASPIRIN 325 MG TAB PO SCH (10:15)
[2020-05-09] MEDS: DOCUSATE SODIUM 100 MG CAP PO SCH (10:15)
[2020-05-09] MEDS: LISINOPRIL 20 MG TAB PO SCH (10:16)
--- NOTE | 2020-05-10 12:41 | Discharge Summary ---
Providers - Providers Date of Admission: 05/07/20 15:52 Attending physician: AUGUSTUS ANGELES 05/07/20 16:35 Consult to Case Management [CONS] Routine Services Needed at Discharge: Other Notified:: case mamager Consult to Dietitian/Nutrition [CONS] Routine Physician Instructions: Reason For Exam: Reason for Consult: Nutrition Recommendations Reason for Consult: Diet education Consult to Physician [CONS] Routine Comment: Consulting Provider: CHRISTINA SETHI Physician Instructions: Reason For Exam: acute cva Occupational Therapy Evaluate and Treat [CONS] Routine Comment: Reason For Exam: Neuro deficits Physical Therapy Evaluation and Treat [CONS] Routine Comment: Reason For Exam: Neuro deficits 05/07/20 16:37 Speech Therapy Evaluation and Treat [CONS] Routine Reason For Exam: swallow eval Primary care physician: STUD [employer] Hospitalization Condition: Stable Pertinent studies: CT head: Left ischemic region MRI brain: Left microvascular change Hospital course: 60-year-old male with hypertension asthma, nicotine dependence presents to ED for evaluation. Patient seen and evaluated in the emergency department. Lab and imaging studies reviewed. Patient found to have symptoms consistent with acute CVA. Patient admitted to telemetry and initiated on CVA protocol. Tele- neurology was consulted. Patient deemed not to be a candidate for TPA. Patient treated with supportive care. Patient underwent CT scan of the head which revealed a left MCA area suggestive of infarct. Patient convalesced well during hospital course. Patient medically optimized on the day of discharge. Patient seen and evaluated prior to discharge but no significant new physical exam findings. Patient discharged home and instructed to follow-up with primary care physician within 3 to 5 days and to follow-up with neurology as instructed. No reported nursing events. Approximate 35 minutes dedicated to patient discharge and coordination of care. Disposition: DC-01 TO HOME OR SELFCARE - Discharge Diagnoses (1) CVA (cerebral vascular accident) Status: Acute Qualifiers: Precerebral and cerebral artery: middle cerebral artery Laterality of affected vessel: left (2) Hemiparesis, right Status: Acute (3) COPD exacerbation Status: Acute (4) DVT prophylaxis Status: Acute Core Measure Documentation - Palliative Care Palliative Care/ Comfort Measures: Not Applicable - Core Measures Any of the following diagnoses?: stroke - Stroke Discharge Requirements Statin for LDL = or >70 mg/dl on DC: Not Applicable (LDL less than 70) Anticoag for atrial fib/atrial flutter: Not Applicable Antithrombotic for ischemic stroke: No Reason for no antithrombotic on DC: Patient Refusal Exam - Constitutional Vitals: Temp Pulse Resp BP Pulse Ox 98.0 F 78 18 154/105 98 05/09/20 08:08 05/09/20 14:19 05/09/20 14:19 05/09/20 10:16 05/09/20 10:00 General appearance: Present: no acute distress, well-nourished - EENT Eyes: Present: PERRL ENT: hearing intact, clear oral mucosa - Neck Neck: Present: supple, normal ROM - Respiratory Respiratory effort: normal Respiratory: bilateral: CTA - Cardiovascular Heart Sounds: Present: S1 & S2. Absent: rub, click - Extremities Extremities: pulses symmetrical, No edema Peripheral Pulses: within normal limits - Abdominal General gastrointestinal: Present: soft, non-tender, non-distended, normal bowel sounds Male genitourinary: Present: normal - Integumentary Integumentary: Present: clear, warm, dry - Musculoskeletal Musculoskeletal: generalized weakness - Psychiatric Psychiatric: appropriate mood/affect, intact judgment & insight - Neurologic Neurologic: focal deficits, moves all extremities, no gait normal Plan Activity: advance as tolerated Diet: low cholesterol Follow up with: PRIMARY CARE, [Primary Care Provider] - 3-5 Days Prescriptions: Albuterol Sulfate [Albuterol 0.63% NEBS] 0.63 mg IH TID PRN #1 box PRN Reason: Wheezing Ipratropium [Atrovent NEB] 0.5 mg IH Q8HRT PRN #1 box PRN Reason: Wheezing Compressor, For Nebulizer [Ebase Controller] 1 each MC TID PRN #1 each PRN Reason: Wheezing Prednisone [predniSONE 10 mg (6-Day Pack, 21 Tabs)] 10 mg PO .TAPER #1 tab.ds.pk
== END 2020-05-09 15:15 | disposition home or self-care (01) ==
LOC: ED 11:06 → 4A 15:52
PROVIDERS: ADMIT Internal Medicine; ATTEND Internal Medicine
DX: I63.9 Cerebral infarction, unspecified (principal); J44.1 Chronic obstructive pulmonary disease with (acute) exacerbation; I10 Essential (primary) hypertension; G81.91 Hemiplegia, unspecified affecting right dominant side; R29.703 NIHSS score 3; F17.210 Nicotine dependence, cigarettes, uncomplicated; Z79.899 Other long term (current) drug therapy
CPT/HCPCS: 36415; 36600; 70450; 70496; 70498; 70551; 80048; 80061; 80076; 82803; 82962; 83036; 83880; 84484; 85025; 85610; 85670; 85730; 87641; 92610; 93005; 93306; 94640; 94760; 96372; 96374; 96375; 96376; 97165; 99291; 99406; A9270; G0378; J1650; J2920; J2930; Q9967

== ENCOUNTER 2020-07-04 09:26 | Emergency (ER) | payer MEDICARE ==
[2020-07-04] MEDS ORDERED: cloNIDine 0.2 MG TAB PO ONE (10:22)
--- NOTE | 2020-07-04 10:31 | Emergency Department Report ---
HPI - General Chief Complaint: High BP Time Seen by Provider: 07/04/20 10:21 - HPI HPI: Room 6 The patient is a 60-year-old male present with a chief complaint of hypertension and dizziness. Patient was at adult daycare when he was told that his blood pressure was elevated. Patient states he felt dizziness/lightheadedness this morning. Patient denies headache nausea or vomiting. The patient states he has been out of his blood pressure medication for "a while." ED Past Medical Hx - Past Medical History Previous Medical History?: Yes Hx Hypertension: Yes Hx Asthma: Yes Hx COPD: Yes - Surgical History Additional Surgical History: suprapubic cath - Family History Family history: no significant - Social History Smoking Status: Current Every Day Smoker (1/7pack/day) Substance Use Type: Alcohol, Marijuana - Medications Home Medications: Home Medications Medication Instructions Recorded Confirmed Last Taken Type Albuterol Mdi (or & Nicu Only) 2 puff IH QID PRN #8.5 gram 10/29/19 05/08/20 05/08/20 10:01 Rx [ProAir HFA Inhaler] amLODIPine 10 mg PO DAILY #90 tab 10/29/19 05/08/20 05/08/20 10:01 Rx cephALEXin [Keflex] 500 mg PO Q12HR #10 cap 10/29/19 05/08/20 Unknown Rx lisinopriL [Zestril TAB] 20 mg PO QDAY #90 tablet 10/29/19 05/08/20 05/08/20 10:01 Rx Albuterol Sulfate [Albuterol 0.63% 0.63 mg IH TID PRN #1 box 05/09/20 Unknown Rx NEBS] Compressor, For Nebulizer [Ebase 1 each MC TID PRN #1 each 05/09/20 Unknown Rx Controller] Ipratropium [Atrovent NEB] 0.5 mg IH Q8HRT PRN #1 box 05/09/20 Unknown Rx Prednisone [predniSONE 10 mg 10 mg PO .TAPER #1 tab.ds.pk 05/09/20 Unknown Rx (6-Day Pack, 21 Tabs)] levoFLOXacin [Levaquin TAB] 500 mg PO QDAY #7 tablet 07/04/20 Unknown Rx ED Review of Systems ROS: Stated complaint: HYPERTYENSION,FEELING HOT Other details as noted in HPI Constitutional: no symptoms reported Respiratory: no symptoms reported Endocrine: no symptoms reported Gastrointestinal: denies: nausea, vomiting Neurological: other (Lightheadedness). denies: headache Physical Exam - Physical Exam Vital Signs: Vital Signs 07/04/20 10:00 Pulse Rate 80 Respiratory 17 Rate Blood Pressure 180/108 O2 Sat by Pulse 94 Oximetry Vital Signs 07/04/20 07/04/20 07/04/20 10:00 10:15 11:01 Pulse Rate 80 84 78 Respiratory 17 18 23 Rate Blood Pressure 180/108 180/108 168/97 O2 Sat by Pulse 94 99 98 Oximetry 07/04/20 07/04/20 07/04/20 11:08 11:15 11:30 Pulse Rate 80 76 75 Respiratory 17 16 Rate Blood Pressure 180/108 150/91 153/88 O2 Sat by Pulse 97 96 Oximetry 07/04/20 07/04/20 07/04/20 11:45 12:00 12:30 Pulse Rate 80 75 72 Respiratory 13 21 17 Rate Blood Pressure 153/88 156/83 171/91 O2 Sat by Pulse 97 98 91 Oximetry 07/04/20 13:01 Pulse Rate 71 Respiratory 13 Rate Blood Pressure 159/84 O2 Sat by Pulse 91 Oximetry Physical Exam: GENERAL: The patient is well-developed well-nourished male lying on stretcher not appearing to be in acute distress. [] HEENT: Normocephalic. Atraumatic. Extraocular motions are intact. Patient has moist mucous membranes. NECK: Supple. No meningitic signs are noted. Trachea midline CHEST/LUNGS: Clear to auscultation. There is no respiratory distress noted. HEART/CARDIOVASCULAR: Regular. There is no tachycardia. There is no gallop rub or murmur. ABDOMEN: Abdomen is soft, nontender. Patient has normal bowel sounds. There is no abdominal distention. SKIN: There is no rash. There is no edema. There is no diaphoresis. NEURO: The patient is awake, alert, and oriented. The patient is cooperative. The patient has no focal neurologic deficits. The patient has normal speech. Cranial nerves II through XII grossly intact cranial nerve XI on the left difficult to assess secondary to chronic pain in the left shoulder patient is hesitant to perform an open MUSCULOSKELETAL: There is no evidence of acute injury. ED Course Vital Signs 10/26/20 10:00 Pulse Rate 80 Respiratory 17 Rate Blood Pressure 180/108 O2 Sat by Pulse 94 Oximetry ED Medical Decision Making - Lab Data Result diagrams: 07/04/20 10:59 07/04/20 10:59 Laboratory Tests 07/04/20 07/04/20 07/04/20 10:59 10:59 11:27 WBC 5.6 RBC 3.79 Hgb 12.4 Hct 35.6 MCV 94 MCH 33 H MCHC 35 H RDW 14.2 Plt Count 115 L Lymph % (Auto) 23.7 [facility] % (Auto) 7.7 H Eos % (Auto) 2.0 Baso % (Auto) 0.4 Lymph # (Auto) 1.3 [facility] # (Auto) 0.4 Eos # (Auto) 0.1 Baso # (Auto) 0.0 Seg Neutrophils % 66.2 Seg Neutrophils # 3.7 Sodium 139 Potassium 4.2 Chloride 108.0 H Carbon Dioxide 24 Anion Gap 11 BUN 13 Creatinine 0.9 Estimated GFR > 60 BUN/Creatinine Ratio 14 Glucose 81 Calcium 8.9 Urine Color Yellow Urine Turbidity Slightly-cloudy Urine pH 6.0 Ur Specific [place] 1.011 Urine Protein <15 mg/dl Urine Glucose (UA) Neg Urine Ketones Neg Urine Blood Sm Urine Nitrite Pos Urine Bilirubin Neg Urine Urobilinogen < 2.0 Ur Leukocyte Esterase Lg Urine WBC (Auto) 76.0 H Urine RBC (Auto) 4.0 U Epithel Cells (Auto) < 1.0 Urine Bacteria (Auto) 1+ Urine Mucus Few - Radiology Data Radiology results: report reviewed (CT head), image reviewed (CT head) Findings [facility] [address] [place] [address] Cat Scan Report Signed Patient: MILVIA HAMILTON MR#: [id number] : 1960 Acct:[id number] Age/Sex: 60 / M ADM Date: 07/04/20 Loc: ED Attending Dr: Ordering Physician: JAYCEE THOMAS MD Date of Service: 07/04/20 Procedure(s): CT head/brain wo con Accession Number(s): [id number] cc: JAYCEE THOMAS MD CT HEAD WITHOUT CONTRAST INDICATION / CLINICAL INFORMATION: Hypertension, dizziness. TECHNIQUE: Axial imaging performed from the skull apex through the skull base without the use of contrast. Sagittal and coronal reformatted images. All CT scans at this location are performed using CT dose reduction for ALARA by means of automated exposure control. COMPARISON: 05/07/2020 FINDINGS: CEREBRAL PARENCHYMA: Mild hypoattenuation in the periventricular white matter is unchanged and consistent with chronic microangiopathy. No acute territorial infarct. No chronic infarct. HEMORRHAGE: None. EXTRA-AXIAL SPACES: Normal in size and morphology for the patient's age. VENTRICULAR SYSTEM: Normal in size and morphology for the patient's age. MIDLINE SHIFT OR HERNIATION: None. CEREBELLUM / BRAINSTEM: No significant abnormality. CALVARIUM: No significant abnormality. ORBITS: Normal as visualized. PARANASAL SINUSES / MASTOID AIR CELLS: Normal as visualized. SOFT TISSUES of HEAD: No significant abnormality. ADDITIONAL FINDINGS: None. IMPRESSION: No acute intracranial abnormality. Mild chronic white matter changes. No change since 05/07/2020 exam. Signer Name: Deonte Bey Jr, MD Signed: 07/04/2020 11:13 AM Workstation Name: [id number] Transcribed By: TTR Dictated By: DEONTE BEY JR, MD Electronically Authenticated By: DEONTE BEY JR, MD Signed Date/Time: 07/04/20 111 DD/ 1112 TD/TT: - Differential Diagnosis Hypertensive urgency, hypertension, lightheadedness, symptomatic anemia, UT Critical care attestation.: If time is entered above; I have spent that time in minutes in the direct care of this critically ill patient, excluding procedure time. ED Disposition Clinical Impression: Hypertension, UTI (urinary tract infection) Disposition: -01 TO HOME OR SELFCARE Is pt being admited?: No Does the pt Need Aspirin: No Condition: Stable Instructions: Hypertension (ED) Additional Instructions: Return to the emergency department should you develop worsening symptoms, inability to tolerate food or liquids, high fever or any other concerns Prescriptions: levoFLOXacin [Levaquin TAB] 500 mg PO QDAY #7 tablet Referrals: PRIMARY CAREMD [Primary Care Provider] - 3-5 Days Time of Disposition: 13:15
[2020-07-04 11:16] LABS: Basophils % (Auto) 0.4 % (0.0-1.8); Eosinophils # (Auto) 0.1 K/mm3 (0.0-0.4); Hematocrit 35.6 % (35.5-45.6); Hemoglobin 12.4 gm/dl (11.8-15.2); Lymphocytes # (Auto) 1.3 K/mm3 (1.2-5.4); Lymphocytes % (Auto) 23.7 % (13.4-35.0); Mean Corpuscular HGB Conc 35 % (32-34); Mean Corpuscular Volume 94 fl (84-94); Monocytes # (Auto) 0.4 K/mm3 (0.0-0.8); Monocytes % (Auto) 7.7 % (0.0-7.3); Platelet Count 115 K/mm3 (140-440); Red Blood Count 3.79 M/mm3 (3.65-5.03); Red Cell Distribution Width 14.2 % (13.2-15.2)
--- NOTE | 2020-07-04 11:17 | Cat Scan Report ---
CT HEAD WITHOUT CONTRAST INDICATION / CLINICAL INFORMATION: Hypertension, dizziness. TECHNIQUE: Axial imaging performed from the skull apex through the skull base without the use of cont rast. Sagittal and coronal reformatted images. All CT scans at this location are performed using CT dose reduction for ALARA by means of automated exposure control. COMPARISON: 05/07/2020 FINDINGS: CEREBRAL PARENCHYMA: Mild hypoattenuation in the periventricular white matter is unchanged and consis tent with chronic microangiopathy. No acute territorial infarct. No chronic infarct. HEMORRHAGE: None. EXTRA-AXIAL SPACES: Normal in size and morphology for the patient's age. VENTRICULAR SYSTEM: Normal in size and morphology for the patient's age. MIDLINE SHIFT OR HERNIATION: None. CEREBELLUM / BRAINSTEM: No significant abnormality. CALVARIUM: No significant abnormality. ORBITS: Normal as visualized. PARANASAL SINUSES / MASTOID AIR CELLS: Normal as visualized. SOFT TISSUES of HEAD: No significant abnormality. ADDITIONAL FINDINGS: None. IMPRESSION: No acute intracranial abnormality. Mild chronic white matter changes. No change since 05/07/2020 exam. Signer Name: Deonte Paige Jr, MD Signed: 07/04/2020 11:13 AM Workstation Name: [id number]
[2020-07-04 11:38] LABS: BUN/Creatinine Ratio 14; Blood Urea Nitrogen 13 mg/dL (9-20); Calcium 8.9 mg/dL (8.4-10.2); Hemolysis Index 5
[2020-07-04 12:24] LABS: Bacteria,Urine 1+ /HPF (Negative); Bilirubin,Urine NEG (Negative); Blood,Urine SM (Negative); Color,Urine Yellow (Yellow); Mucus,Urine FEW /HPF; Protein,Urine <15 mg/dL mg/dL (Negative); Urobilinogen,Urine < 2.0 mg/dL (<2.0)
[2020-07-04 13:13] VITALS: BP 159/84
== END 2020-07-04 14:00 | disposition home or self-care (01) ==
LOC: ED 09:26
DX: I10 Essential (primary) hypertension (principal); N39.0 Urinary tract infection, site not specified; J44.9 Chronic obstructive pulmonary disease, unspecified; F17.200 Nicotine dependence, unspecified, uncomplicated; F12.90 Cannabis use, unspecified, uncomplicated; Z98.890 Other specified postprocedural states; Z79.899 Other long term (current) drug therapy
CPT/HCPCS: 36415; 70450; 80048; 81001; 85025; 87086

== ENCOUNTER 2020-10-26 16:34 | Observation (INO) | payer MEDICARE ==
--- NOTE | 2020-10-26 18:22 | Emergency Department Report ---
<ABELARDO ROA - Last Filed: 10/26/20 23:33> ED Abdominal Pain HPI - General Chief Complaint: Abdominal Pain Stated Complaint: ABD PAIN Time Seen by Provider: 10/26/20 18:14 - Related Data Previous Rx's Medication Instructions Recorded Last Taken Type Albuterol Mdi (or & Nicu Only) 2 puff IH QID PRN #8.5 gram 10/29/19 05/08/20 10:01 Rx [ProAir HFA Inhaler] cephALEXin [Keflex] 500 mg PO Q12HR #10 cap 10/29/19 Unknown Rx lisinopriL [Zestril TAB] 20 mg PO QDAY #90 tablet 10/29/19 05/08/20 10:01 Rx Albuterol Sulfate [Albuterol 0.63% 0.63 mg IH TID PRN #1 box 05/09/20 Unknown Rx NEBS] Compressor, For Nebulizer [Ebase 1 each MC TID PRN #1 each 05/09/20 Unknown Rx Controller] Ipratropium [Atrovent NEB] 0.5 mg IH Q8HRT PRN #1 box 05/09/20 Unknown Rx Prednisone [predniSONE 10 mg 10 mg PO .TAPER #1 tab.ds.pk 05/09/20 Unknown Rx (6-Day Pack, 21 Tabs)] amLODIPine 10 mg PO DAILY #90 tab 07/04/20 Unknown Rx levoFLOXacin [Levaquin TAB] 500 mg PO QDAY #7 tablet 07/04/20 Unknown Rx Allergies Allergy/AdvReac Type Severity Reaction Status Date / Time No Known Allergies Allergy Verified 07/04/20 09:37 ED Past Medical Hx - Medications Home Medications: Home Medications Medication Instructions Recorded Confirmed Last Taken Type Albuterol Mdi (or & Nicu Only) 2 puff IH QID PRN #8.5 gram 10/29/19 05/08/20 05/08/20 10:01 Rx [ProAir HFA Inhaler] cephALEXin [Keflex] 500 mg PO Q12HR #10 cap 10/29/19 05/08/20 Unknown Rx lisinopriL [Zestril TAB] 20 mg PO QDAY #90 tablet 10/29/19 05/08/20 05/08/20 10:01 Rx Albuterol Sulfate [Albuterol 0.63% 0.63 mg IH TID PRN #1 box 05/09/20 Unknown Rx NEBS] Compressor, For Nebulizer [Ebase 1 each MC TID PRN #1 each 05/09/20 Unknown Rx Controller] Ipratropium [Atrovent NEB] 0.5 mg IH Q8HRT PRN #1 box 05/09/20 Unknown Rx Prednisone [predniSONE 10 mg 10 mg PO .TAPER #1 tab.ds.pk 05/09/20 Unknown Rx (6-Day Pack, 21 Tabs)] amLODIPine 10 mg PO DAILY #90 tab 07/04/20 Unknown Rx levoFLOXacin [Levaquin TAB] 500 mg PO QDAY #7 tablet 07/04/20 Unknown Rx ED Medical Decision Making - Lab Data Result diagrams: 10/26/20 18:27 10/26/20 18:27 ED Disposition Clinical Impression: Pyelonephritis, Intractable abdominal pain Abdominal pain Qualifiers: Abdominal location: generalized Qualified Code(s): R10.84 - Generalized abdominal pain UTI (urinary tract infection) Qualifiers: Urinary tract infection type: acute cystitis Hematuria presence: with hematuria Qualified Code(s): N30.01 - Acute cystitis with hematuria Disposition: OP ADMIT IP TO THIS HOSP Condition: Critical <SHIVA CIFUENTES III - Last Filed: 10/26/20 23:47> ED Abdominal Pain HPI - General PUI?: No Source: patient Mode of arrival: Ambulatory Limitations: No Limitations - History of Present Illness Initial Comments: Patient is a 60-year-old male that presents emergency room with complaints of abdominal pain. Patient states he is having generalized abdominal pain. Patient states that he pain is a 10 out of 10. Patient states the pain is better with rest and worse with movement and palpation. Patient states he is also having nausea vomiting. Patient states when he vomits the pain is worse. Patient denies vomiting blood. Patient denies diarrhea. Patient denies fever or chills. Patient states his last bowel movement was 2 days ago. Patient denies dysuria. Patient denies urinary frequency. Patient's blood pressure found be high in triage. Patient states he is compliant with his medications. Patient denies recent travel. Patient denies recent international travel. Patient denies exposure to the novel coronavirus. Patient denies sick contacts. Patient denies fever and chills. Patient denies cough. Patient denies diarrhea. Patient denies coming in contact with anybody with symptoms of the novel coronavirus. MD Complaint: abdominal pain -: Sudden Location: diffuse Radiation: none Migration to: no migration Severity: severe Severity scale (0 -10): 10 Quality: stabbing Consistency: constant Improves With: rest Worsens With: vomiting, movement Associated Symptoms: nausea, vomiting. denies: diarrhea, fever, dysuria, hematemesis, hematochezia, melena, hematuria, anorexia, syncope Treatments Prior to Arrival: other ED Review of Systems ROS: Stated complaint: ABD PAIN Other details as noted in HPI Constitutional: denies: chills, fever Eyes: denies: eye pain, eye discharge, vision change ENT: denies: ear pain, throat pain Respiratory: denies: cough, shortness of breath, wheezing Cardiovascular: denies: chest pain, palpitations Endocrine: no symptoms reported Gastrointestinal: as per HPI, abdominal pain, nausea, vomiting. denies: diarrhea Genitourinary: denies: urgency, dysuria Musculoskeletal: denies: back pain, joint swelling, arthralgia Skin: denies: rash, lesions Neurological: denies: headache, weakness, paresthesias Psychiatric: denies: anxiety, depression Hematological/Lymphatic: denies: easy bleeding, easy bruising ED Past Medical Hx - Past Medical History Previous Medical History?: Yes Hx Hypertension: Yes Hx Asthma: Yes Hx COPD: Yes - Surgical History Past Surgical History?: Yes Additional Surgical History: suprapubic cath - Family History Family history: no significant - Social History Smoking Status: Never Smoker Substance Use Type: None ED Physical Exam - General Limitations: No Limitations General appearance: alert, in no apparent distress - Head Head exam: Present: atraumatic, normocephalic - Eye Eye exam: Present: normal appearance - ENT ENT exam: Present: mucous membranes moist - Neck Neck exam: Present: normal inspection - Respiratory Respiratory exam: Present: normal lung sounds bilaterally. Absent: respiratory distress - Cardiovascular Cardiovascular Exam: Present: regular rate, normal rhythm. Absent: systolic murmur, diastolic murmur, rubs, gallop - GI/Abdominal GI/Abdominal exam: Present: soft, tenderness (Generalized tenderness noted. Lower abdomen more tender in the upper abdomen. Patient also has right-sided flank pain.), normal bowel sounds - Rectal Rectal exam: Present: deferred - Extremities Exam Extremities exam: Present: normal inspection - Back Exam Back exam: Present: normal inspection, CVA tenderness (R) - Neurological Exam Neurological exam: Present: alert, oriented X3 - Psychiatric Psychiatric exam: Present: normal affect, normal mood - Skin Skin exam: Present: warm, dry, intact, normal color. Absent: rash ED Course Vital Signs 10/26/20 10/26/20 10/26/20 18:01 20:42 20:46 Temperature 98.2 F Pulse Rate 110 H 93 H 96 H Respiratory 22 13 15 Rate Blood Pressure 210/117 O2 Sat by Pulse 94 Oximetry 10/26/20 10/26/20 10/26/20 21:03 21:15 21:31 Temperature Pulse Rate 84 98 H 83 Respiratory 13 13 13 Rate Blood Pressure 172/101 169/97 169/97 O2 Sat by Pulse 94 92 91 Oximetry 10/26/20 10/26/20 10/26/20 21:45 22:01 22:15 Temperature Pulse Rate 99 H 89 85 Respiratory 13 15 14 Rate Blood Pressure 171/97 232/120 177/110 O2 Sat by Pulse 87 95 95 Oximetry 10/26/20 10/26/20 22:31 22:45 Temperature Pulse Rate 90 82 Respiratory 9 L 8 L Rate Blood Pressure 185/106 173/75 O2 Sat by Pulse 90 91 Oximetry - Reevaluation(s) Reevaluation #1: Patient complaining of severe pain. Patient was given Dilaudid and Zofran. Patient will be given pain meds and taken to CT scan. 10/26/20 19:13 Reevaluation #2: I discussed all results with patient. I discussed plan of care with patient. Patient agrees with plan of care and admission. Patient to be admitted to the hospitalist service. Patient is still complaining of severe abdominal pain. Patient will be given another milligram of Dilaudid. 10/26/20 20:33 - Consultations Consultation #1: Hospitalist consulted for admission. Hospitalist to admit patient. 10/26/20 20:38 ED Medical Decision Making - Lab Data Result diagrams: 10/26/20 18:27 10/26/20 18:27 - Radiology Data Radiology results: report reviewed, image reviewed interpreted by me: Chest x-ray: No pneumonia, no pneumothorax, no foreign body, no osseous findings, no acute findings CT ABDOMEN AND PELVIS WITH CONTRAST INDICATION / CLINICAL INFORMATION: Abdominal Pain. TECHNIQUE: Axial CT images were obtained through the abdomen and pelvis after 100 mL Omnipaque [address] scans at this location are performed using CT dose reduction for ALARA by means of automated exposure control. COMPARISON: CT dated 10/27/19 FINDINGS: LOWER CHEST: No acute abnormality. LIVER: No significant abnormality. GALLBLADDER: No significant abnormality. BILE DUCTS: No significant abnormality. PANCREAS: No significant abnormality. SPLEEN: Spleen is enlarged measuring 15 cm in craniocaudad dimension containing calcified granulomas. No change. ADRENALS: No significant abnormality. RIGHT KIDNEY / URETER: Mild renal scarring without definite acute abnormality. LEFT KIDNEY / URETER: Mild renal scarring without definite acute abnormality. STOMACH / SMALL BOWEL: No significant abnormality. COLON: No significant abnormality. APPENDIX: Not visualized. PERITONEUM: No free fluid. No free air. No fluid collection. LYMPH NODES: No significant adenopathy. AORTA / ARTERIES: Mild atherosclerotic calcification without acute abnormality. IVC / VEINS: No significant abnormality. URINARY BLADDER: Moderate diffuse thickening of the urinary bladder possibly related to cystitis or UTI. REPRODUCTIVE ORGANS: Metallic fiducial markers in the prostate. ADDITIONAL FINDINGS: None. SKELETAL SYSTEM: Several small sclerotic lesions appear stable. No new skeletal lesions. IMPRESSION: 1. Diffuse thickening the urinary bladder possibly related to cystitis or UTI. 2. Renal scarring but no definite acute pyelonephritis. 3. Stable splenomegaly. - Medical Decision Making Patient is a 60-year-old male that presents emergency room for abdominal pain. Patient had generalized pain but the lower abdomen and the flanks were worse. Patient given Dilaudid for pain. Patient required multiple doses of Dilaudid and abdominal pain is intractable. Patient had labs done which were essentially unremarkable except for UTI on UA. Patient had a CT scan which shows cystitis. The patient's clinical findings are consistent with pyelonephritis. Patient admitted to the hospital for intractable pain and IV antibiotics for pyelonephritis and UTI. Patient admitted to the hospital service for further evaluation and treatment. - Differential Diagnosis UTI, gastroenteritis, gastritis, pyelonephritis Critical Care Time: Yes Critical care time in (mins) excluding proc time.: 35 Critical care attestation.: If time is entered above; I have spent that time in minutes in the direct care of this critically ill patient, excluding procedure time. Critical Care Time: 35 minutes ED Disposition Is pt being admited?: Yes Does the pt Need Aspirin: No Time of Disposition: 20:38
[2020-10-26 18:37] LABS: Basophils % (Auto) 0.5 % (0.0-1.8); Eosinophils # (Auto) 0.1 K/mm3 (0.0-0.4); Eosinophils % (Auto) 1.8 % (0.0-4.3); Hematocrit 43.2 % (35.5-45.6); Hemoglobin 14.8 gm/dl (11.8-15.2); Lymphocytes # (Auto) 1.4 K/mm3 (1.2-5.4); Mean Corpuscular HGB Conc 34 % (32-34); Mean Corpuscular Volume 94 fl (84-94); Monocytes # (Auto) 0.5 K/mm3 (0.0-0.8); Monocytes % (Auto) 6.7 % (0.0-7.3); Platelet Count 123 K/mm3 (140-440); Red Blood Count 4.59 M/mm3 (3.65-5.03); Red Cell Distribution Width 14.2 % (13.2-15.2)
[2020-10-26 18:53] LABS: Alanine Aminotransferase 13 units/L (7-56); Albumin 4.5 g/dL (3.9-5); BUN/Creatinine Ratio 14; Blood Urea Nitrogen 19 mg/dL (9-20); Hemolysis Index 11
[2020-10-26 19:00] LABS: Bilirubin,Direct < 0.2 mg/dL (0-0.2)
[2020-10-26] MEDS ORDERED: ONDANSETRON 4 MG/2 ML INJ ONE (19:12)
[2020-10-26] MEDS ORDERED: HYDROmorphone 1 MG/1 ML INJ ONE (19:12)
[2020-10-26] MEDS ORDERED: HYDROmorphone 1 MG/1 ML INJ IV ONE ×2 (19:13→20:34)
[2020-10-26] MEDS ORDERED: ONDANSETRON 4 MG/2 ML INJ IV ONE (19:13)
--- NOTE | 2020-10-26 19:54 | Cat Scan Report ---
CT ABDOMEN AND PELVIS WITH CONTRAST INDICATION / CLINICAL INFORMATION: Abdominal Pain. TECHNIQUE: Axial CT images were obtained through the abdomen and pelvis after 100 mL Omnipaque [address] scans at this location are performed using CT dose reduction for ALARA by means of automated exposure control. COMPARISON: CT dated 10/27/19 FINDINGS: LOWER CHEST: No acute abnormality. LIVER: No significant abnormality. GALLBLADDER: No significant abnormality. BILE DUCTS: No significant abnormality. PANCREAS: No significant abnormality. SPLEEN: Spleen is enlarged measuring 15 cm in craniocaudad dimension containing calcified granulomas. No change. ADRENALS: No significant abnormality. RIGHT KIDNEY / URETER: Mild renal scarring without definite acute abnormality. LEFT KIDNEY / URETER: Mild renal scarring without definite acute abnormality. STOMACH / SMALL BOWEL: No significant abnormality. COLON: No significant abnormality. APPENDIX: Not visualized. PERITONEUM: No free fluid. No free air. No fluid collection. LYMPH NODES: No significant adenopathy. AORTA / ARTERIES: Mild atherosclerotic calcification without acute abnormality. IVC / VEINS: No significant abnormality. URINARY BLADDER: Moderate diffuse thickening of the urinary bladder possibly related to cystitis or U TI. REPRODUCTIVE ORGANS: Metallic fiducial markers in the prostate. ADDITIONAL FINDINGS: None. SKELETAL SYSTEM: Several small sclerotic lesions appear stable. No new skeletal lesions. IMPRESSION: 1. Diffuse thickening the urinary bladder possibly related to cystitis or UTI. 2. Renal scarring but no definite acute pyelonephritis. 3. Stable splenomegaly. Signer Name: Dora Schneider MD Signed: 10/26/2020 7:50 PM Workstation Name: [id number]
[2020-10-26 20:14] LABS: Bilirubin,Urine NEG (Negative); Blood,Urine NEG (Negative); Color,Urine Amber (Yellow); Hyaline Casts,Urine 4 /LPF; Mucus,Urine 3+ /HPF; Urobilinogen,Urine < 2.0 mg/dL (<2.0)
[2020-10-26] MEDS ORDERED: SODIUM CHLORIDE 0.9% 1000 ML 1,000 ML IV ONE (20:23)
[2020-10-26] MEDS ORDERED: CEFEPIME/NS 2 GM/100 ML 2 GM/100 ML BAG IV ONE (20:23)
[2020-10-26] MEDS ORDERED: hydrALAZINE 20 MG/1 ML INJ IV ONE (20:23)
[2020-10-26] MEDS ORDERED: HYDROmorphone 2 MG/1 ML INJ IV ONE (22:15)
--- NOTE | 2020-10-26 23:28 | History and Physical Report ---
History of Present Illness Date of examination: 10/26/20 Date of admission: 10/26/20 21:57 Chief complaint: abdominal pain History of present illness: Patient is a 60-year-old male that presents emergency room with complaints of abdominal pain. Patient states he is having generalized abdominal pain. Patient states that he pain is a 10 out of 10. Patient states the pain is better with rest and worse with movement and palpation. Patient states he is also having nausea vomiting. Patient states when he vomits the pain is worse. Patient denies vomiting blood. Patient denies diarrhea. Patient denies fever or chills. Patient states his last bowel movement was 2 days ago. Patient denies dysuria. Patient denies urinary frequency. ED work-up shows WBC 6.9, hemoglobin 14.8 platelets 123, creatinine 1.4, glucose serum 144 CT of the abdomen showed urinary tract infection. Patient seen at the bedside in the ED alert oriented x3. Admits tobacco use and marijuana use. He reported that he came with abdominal pain that is getting better he was medicated with pain medication. Patient denies, chest pain, nausea and vomiting. Reviewed medication record vital signs and lab values. Past History Past Medical History: hypertension Past Surgical History: No surgical history Social history: Lives alone, smoking, alcohol abuse Family history: no significant family history Medications and Allergies Allergies Allergy/AdvReac Type Severity Reaction Status Date / Time No Known Allergies Allergy Verified 07/04/20 09:37 Home Medications Medication Instructions Recorded Confirmed Last Taken Type Albuterol Mdi (or & Nicu Only) 2 puff IH QID PRN #8.5 gram 10/29/19 05/08/20 05/08/20 10:01 Rx [ProAir HFA Inhaler] cephALEXin [Keflex] 500 mg PO Q12HR #10 cap 10/29/19 05/08/20 Unknown Rx lisinopriL [Zestril TAB] 20 mg PO QDAY #90 tablet 10/29/19 05/08/20 05/08/20 10:01 Rx Albuterol Sulfate [Albuterol 0.63% 0.63 mg IH TID PRN #1 box 05/09/20 Unknown Rx NEBS] Compressor, For Nebulizer [Ebase 1 each MC TID PRN #1 each 05/09/20 Unknown Rx Controller] Ipratropium [Atrovent NEB] 0.5 mg IH Q8HRT PRN #1 box 05/09/20 Unknown Rx Prednisone [predniSONE 10 mg 10 mg PO .TAPER #1 tab.ds.pk 05/09/20 Unknown Rx (6-Day Pack, 21 Tabs)] amLODIPine 10 mg PO DAILY #90 tab 07/04/20 Unknown Rx levoFLOXacin [Levaquin TAB] 500 mg PO QDAY #7 tablet 07/04/20 Unknown Rx Review of Systems Constitutional: fatigue, weakness Ears, nose, mouth and throat: no epistaxis Cardiovascular: high blood pressure Respiratory: no cough Gastrointestinal: no abdominal pain Musculoskeletal: no neck stiffness Integumentary: no rash Neurological: no head injury Psychiatric: anxiety Endocrine: no heat intolerance Hematologic/Lymphatic: no easy bruising Allergic/Immunologic: no urticaria, no allergic rhinitis Exam - Constitutional Vitals: Temp Pulse Resp BP Pulse Ox 98.2 F 82 8 L 173/75 91 10/26/20 18:01 10/26/20 22:45 10/26/20 22:45 10/26/20 22:45 10/26/20 22:45 General appearance: Present: mild distress - EENT Eyes: Present: PERRL ENT: hearing intact, clear oral mucosa - Neck Neck: Present: supple, normal ROM - Respiratory Respiratory effort: normal Respiratory: bilateral: CTA - Cardiovascular Heart Sounds: Present: S1 & S2. Absent: rub, click - Extremities Extremities: pulses symmetrical, No edema Peripheral Pulses: within normal limits - Abdominal General gastrointestinal: Present: soft, non-tender, non-distended, normal bowel sounds Male genitourinary: Present: normal - Integumentary Integumentary: Present: clear, warm, dry - Musculoskeletal Musculoskeletal: strength equal bilaterally - Psychiatric Psychiatric: cooperative - Allied Health Allied health notes reviewed: nursing Results - Labs CBC & Chem 7: 10/27/20 04:56 10/27/20 04:56 Labs: Abnormal lab results 10/26/20 10/26/20 10/26/20 Range/Units 18:27 18:27 18:44 Plt Count 123 L (140-440) K/mm3 Creatinine 1.4 H (0.8-1.3) mg/dL Glucose 144 H (75-100) mg/dL Urine WBC (Auto) 101.0 H (0.0-6.0) /HPF Assessment and Plan - Patient Problems (1) Pyelonephritis Current Visit: Yes Status: Acute Plan to address problem: Continue antibiotic with Rocephin Urine culture follow-up with results IV hydration with normal saline (2) Abdominal pain Current Visit: Yes Status: Acute Qualifiers: Abdominal location: generalized Qualified Code(s): R10.84 - Generalized abdominal pain Plan to address problem: Pain management as needed (3) MELYSSA (acute kidney injury) Current Visit: Yes Status: Acute Plan to address problem: Continue IV hydration with normal saline Monitor kidney function urine sodium and osmolarity Avoid nephrotoxic drugs (4) Tobacco abuse Current Visit: Yes Status: Acute Plan to address problem: Discussed tobacco use cessation Cardiovascular and neoplasm syndrome of tobacco use explained to patient Nicotine patch (5) History of COPD Current Visit: Yes Status: Acute Plan to address problem: Patient with a history of COPD Bronchodilator and oxygen as needed Advised to avoid tobacco use (6) DVT prophylaxis Current Visit: No Status: Acute Plan to address problem: Subcutaneous heparin
[2020-10-26] MEDS ORDERED: ONDANSETRON 4 MG/2 ML INJ IV PRN (23:39)
[2020-10-26] MEDS ORDERED: DOCUSATE SODIUM 100 MG CAP PO PRN (23:39)
[2020-10-26] MEDS ORDERED: METOCLOPRAMIDE 10 MG/2 ML INJ IV PRN (23:39)
[2020-10-26] MEDS ORDERED: ACETAMINOPHEN 325 MG TAB PO PRN ×2 (23:39)
[2020-10-26] MEDS ORDERED: MAGNESIUM HYDROXIDE (MOM) ORAL LIQD UDC PO PRN (23:39)
[2020-10-26] MEDS ORDERED: HYDROmorphone 1 MG/1 ML INJ IV PRN (23:39)
[2020-10-26] MEDS ORDERED: ALUM-MAG HYDROXIDE-SIMETHICONE 200-200-20MG/5ML ORAL LIQD 30 ML PO PRN (23:39)
[2020-10-26] MEDS ORDERED: hydrALAZINE 20 MG/1 ML INJ IV PRN (23:44)
[2020-10-27] MEDS: SODIUM CHLORIDE 0.9% 1000 ML 1,000 ML IV SCH ×2 (00:51→18:32)
[2020-10-27] MEDS: cefTRIAXone/NS 1 GM/50 ML 1 GM/50 ML BAG IV SCH ×2 (00:51→23:35)
[2020-10-27] MEDS: IPRATROPIUM/ALBUTEROL SULFATE 3 ML AMPUL.NEB IH SCH ×4 (05:26→22:25)
[2020-10-27 05:34] LABS: Basophils % (Auto) 0.5 % (0.0-1.8); Eosinophils # (Auto) 0.1 K/mm3 (0.0-0.4); Eosinophils % (Auto) 2.4 % (0.0-4.3); Hematocrit 40.2 % (35.5-45.6); Hemoglobin 13.8 gm/dl (11.8-15.2); Mean Corpuscular HGB Conc 34 % (32-34); Mean Corpuscular Volume 96 fl (84-94); Monocytes # (Auto) 0.5 K/mm3 (0.0-0.8); Monocytes % (Auto) 7.8 % (0.0-7.3); Platelet Count 119 K/mm3 (140-440); Red Blood Count 4.21 M/mm3 (3.65-5.03); Red Cell Distribution Width 14.2 % (13.2-15.2)
[2020-10-27 05:41] LABS: BUN/Creatinine Ratio 15; Blood Urea Nitrogen 16 mg/dL (9-20); Calcium 8.8 mg/dL (8.4-10.2); Hemolysis Index 8
[2020-10-27] MEDS ORDERED: ALBUTEROL 2.5 MG/3 ML NEBU IH PRN (05:43)
[2020-10-27] MEDS: HEPARIN 5,000 UNIT/1 ML VIAL SUB-Q SCH ×2 (09:19→22:50)
[2020-10-27] MEDS: LISINOPRIL 20 MG TAB PO SCH (09:19)
[2020-10-27] MEDS: NICOTINE 7 MG/24 HR PATCH TD SCH (09:38)
--- NOTE | 2020-10-27 09:52 | Progress Note ---
Assessment and Plan Assessment and plan: Cystitis/UTI. CT scan revealed diffuse thickening of the urinary bladder likely related to cystitis/UTI and renal scarring but no definite acute pyelonephritis. Abdominal pain. Etiology secondary to above. Acute kidney injury. Etiology secondary to vasomotor nephropathy. Tobacco abuse History of COPD. Compensated. DVT prophylaxis. 10/27/2020. Continue IV antibiotics and follow-up urine cultures. ID consulted. Continue IV fluid hydration and follow-up BMP. Creatinine has improved since a dmission. Anticipate discharge in a.m. History Interval history: No new issues overnight. Hospitalist Physical - Constitutional Vitals: Temp Pulse Resp BP Pulse Ox 98.3 F 104 H 18 165/93 97 10/27/20 08:44 10/27/20 09:19 10/27/20 08:03 10/27/20 09:19 10/27/20 08:44 General appearance: Present: no acute distress - EENT Eyes: Present: PERRL, EOM intact ENT: hearing intact, clear oral mucosa, dentition normal - Neck Neck: Present: supple, normal ROM - Respiratory Respiratory effort: normal Respiratory: bilateral: CTA - Cardiovascular Rhythm: regular Heart Sounds: Present: S1 & S2. Absent: gallop, rub - Extremities Extremities: no ischemia, No edema, Full ROM - Abdominal General gastrointestinal: soft, non-tender, non-distended, normal bowel sounds - Integumentary Integumentary: Present: clear, warm, dry - Neurologic Neurologic: CNII-XII intact, moves all extremities Results - Labs CBC & Chem 7: 10/27/20 04:56 10/27/20 04:56 Labs: Laboratory Last Values WBC 6.2 K/mm3 (4.5-11.0) 10/27/20 04:56 RBC 4.21 M/mm3 (3.65-5.03) 10/27/20 04:56 Hgb 13.8 gm/dl (11.8-15.2) 10/27/20 04:56 Hct 40.2 % (35.5-45.6) 10/27/20 04:56 MCV 96 fl (84-94) H 10/27/20 04:56 MCH 33 pg (28-32) H 10/27/20 04:56 MCHC 34 % (32-34) 10/27/20 04:56 RDW 14.2 % (13.2-15.2) 10/27/20 04:56 Plt Count 119 K/mm3 (140-440) L 10/27/20 04:56 Lymph % (Auto) 32.0 % (13.4-35.0) 10/27/20 04:56 [place] % (Auto) 7.8 % (0.0-7.3) H 10/27/20 04:56 Eos % (Auto) 2.4 % (0.0-4.3) 10/27/20 04:56 Baso % (Auto) 0.5 % (0.0-1.8) 10/27/20 04:56 Lymph # (Auto) 2.0 K/mm3 (1.2-5.4) 10/27/20 04:56 [place] # (Auto) 0.5 K/mm3 (0.0-0.8) 10/27/20 04:56 Eos # (Auto) 0.1 K/mm3 (0.0-0.4) 10/27/20 04:56 Baso # (Auto) 0.0 K/mm3 (0.0-0.1) 10/27/20 04:56 Seg Neutrophils % 57.3 % (40.0-70.0) 10/27/20 04:56 Seg Neutrophils # 3.5 K/mm3 (1.8-7.7) 10/27/20 04:56 Sodium 138 mmol/L (137-145) 10/27/20 04:56 Potassium 4.4 mmol/L (3.6-5.0) 10/27/20 04:56 Chloride 103.5 mmol/L (98-107) 10/27/20 04:56 Carbon Dioxide 28 mmol/L (22-30) 10/27/20 04:56 Anion Gap 11 mmol/L 10/27/20 04:56 BUN 16 mg/dL (9-20) 10/27/20 04:56 Creatinine 1.1 mg/dL (0.8-1.3) 10/27/20 04:56 Estimated GFR > 60 ml/min 10/27/20 04:56 BUN/Creatinine Ratio 15 % 10/27/20 04:56 Glucose 92 mg/dL (75-100) 10/27/20 04:56 Calcium 8.8 mg/dL (8.4-10.2) 10/27/20 04:56 Total Bilirubin 0.50 mg/dL (0.1-1.2) 10/26/20 18:27 Direct Bilirubin < 0.2 mg/dL (0-0.2) 10/26/20 18:27 Indirect Bilirubin 0.3 mg/dL 10/26/20 18:27 AST 18 units/L (5-40) 10/26/20 18:27 ALT 13 units/L (7-56) 10/26/20 18:27 Alkaline Phosphatase 86 units/L (35-129) 10/26/20 18:27 Total Protein 7.8 g/dL (6.3-8.2) 10/26/20 18:27 Albumin 4.5 g/dL (3.9-5) 10/26/20 18:27 Albumin/Globulin Ratio 1.4 % 10/26/20 18:27 Lipase 29 units/L (13-60) 10/26/20 18:27 Urine Color Jayne (Yellow) 10/26/20 18:44 Urine Turbidity Slightly-cloudy (Clear) 10/26/20 18:44 Urine pH 5.0 (5.0-7.0) 10/26/20 18:44 Ur Specific Jackson 1.027 (1.003-1.030) 10/26/20 18:44 Urine Protein 30 mg/dl mg/dL (Negative) 10/26/20 18:44 Urine Glucose (UA) Neg mg/dL (Negative) 10/26/20 18:44 Urine Ketones Tr mg/dL (Negative) 10/26/20 18:44 Urine Blood Neg (Negative) 10/26/20 18:44 Urine Nitrite Neg (Negative) 10/26/20 18:44 Urine Bilirubin Neg (Negative) 10/26/20 18:44 Urine Urobilinogen < 2.0 mg/dL (<2.0) 10/26/20 18:44 Ur Leukocyte Esterase Mod (Negative) 10/26/20 18:44 Urine WBC (Auto) 101.0 /HPF (0.0-6.0) H 10/26/20 18:44 Urine RBC (Auto) 5.0 /HPF (0.0-6.0) 10/26/20 18:44 U Epithel Cells (Auto) 7.0 /HPF (0-13.0) 10/26/20 18:44 Hyaline Casts 4 /LPF 10/26/20 18:44 Urine Mucus 3+ /HPF 10/26/20 18:44 Blood Type B POSITIVE 10/27/20 00:15 Antibody Screen Negative 10/27/20 00:15 Ashby/IV: Voiding Method Urinal Active Medications - Current Medications Current Medications: Generic Name Dose Route Start Last Admin Trade Name Freq PRN Reason Stop Dose Admin Acetaminophen 650 mg 10/26/20 23:39 Acetaminophen 325 Mg Tab PO Q4H PRN Pain MILD(1-3)/Fever >100.5/TAPIA Al Hydrox/Mg Hydrox/Simethicone 30 ml 10/26/20 23:39 Alum-Mag Hydroxide-Simethicone [phone]/5ml Oral Liqd 30 Ml PO Q4H PRN Indigestion Albuterol 2.5 mg 10/27/20 05:43 Albuterol 2.5 Mg/3 Ml Nebu IH Q4HRT PRN Shortness Of Breath Albuterol/Ipratropium 1 ampul 10/27/20 02:00 10/27/20 08:03 Ipratropium/Albuterol Sulfate 3 Ml Ampul.Neb IH 1 ampul Q6HRT BLACK Administration Docusate Sodium 100 mg 10/26/20 23:39 Docusate Sodium 100 Mg Cap PO BID PRN Constipation Famotidine 20 mg 10/27/20 10:00 10/27/20 09:19 Famotidine 20 Mg/2 Ml Inj IV 20 mg BID BLACK Administration Heparin Sodium (Porcine) 5,000 unit 10/27/20 10:00 10/27/20 09:19 Heparin 5,000 Unit/1 Ml Vial SUB-Q 5,000 unit Q12HR BLACK Administration Hydralazine HCl 5 mg 10/26/20 23:44 10/27/20 03:32 Hydralazine 20 Mg/1 Ml Inj IV 5 mg Q4HR PRN Administration Hypertension Hydromorphone HCl 0.25 mg 10/26/20 23:39 10/27/20 03:57 Hydromorphone 1 Mg/1 Ml Inj IV 0.25 mg Q4H PRN Administration Pain, Moderate (4-6) Sodium Chloride 1,000 mls @ 100 mls/hr 10/26/20 23:45 10/27/20 00:51 Nacl 0.9% 1000 Ml IV 100 mls/hr DIRECT BLACK Administration Ceftriaxone Sodium 1 gm in 50 mls @ 100 mls/hr 10/26/20 23:45 10/27/20 00:51 Rocephin/Ns 1 Gm/50 Ml IV 10/29/20 00:14 100 mls/hr Q24H BLACK Administration Protocol Lisinopril 20 mg 10/27/20 10:00 10/27/20 09:19 Lisinopril 20 Mg Tab PO 20 mg DAILY BLACK Administration Magnesium Hydroxide 30 ml 10/26/20 23:39 Magnesium Hydroxide (Mom) Oral Liqd Udc PO Q4H PRN Constipation Metoclopramide HCl 10 mg 10/26/20 23:39 Metoclopramide 10 Mg/2 Ml Inj IV Q6H PRN Nausea And Vomiting Nicotine 7 mg 10/27/20 10:00 10/27/20 09:38 Nicotine 7 Mg/24 Hr Patch TD 7 mg QDAY BLACK Administration Ondansetron HCl 4 mg 10/26/20 23:39 Ondansetron 4 Mg/2 Ml Inj IV Q8H PRN Nausea And Vomiting Sodium Chloride 10 ml 10/27/20 10:00 10/27/20 09:20 Sodium Chloride 0.9% 10 Ml Flush Syringe IV 10 ml BID BLACK Administration Sodium Chloride 10 ml 10/26/20 23:39 Sodium Chloride 0.9% 10 Ml Flush Syringe IV PRN PRN LINE FLUSH
[2020-10-27] MEDS ORDERED: FAMOTIDINE 20 MG/2 ML INJ IV SCH (10:00)
[2020-10-27 14:31] LABS: Osmolality,Urine 758 Mosm/kg
--- NOTE | 2020-10-27 15:38 | Consultation ---
History of Present Illness - Reason for Consult Consult date: 10/27/20 - History of Present Illness 60-year-old male past medical history hypertension presented to the emergency room complaining of abdominal pain. He reports the pain was a 10 out of 10 that was relieved with rest he also reported associated nausea and vomiting. Otherwise denies any symptoms. Afebrile since admission with a normal white count. Currently on ceftriaxone. Urinalysis with 101 white cells. No current cultures were reviewed. Imaging personally reviewed: CT abdomen pelvis: Diffuse thickening of the urinary bladder. Renal scarring without acute pyelonephritis Review of Systems: Bold if positive, otherwise negative General: fevers, chills, rigors HEENT: visual disturbance, diplopia, eye pain Respiratory: cough, sputum, hemoptysis, shortness of breath Cardiovascular: chest pain, syncope Gastrointestinal: nausea, vomiting, diarrhea, abdominal pain Genitourinary: dysuria, hematuria, flank pain Musculoskeletal: neck pain, back pain, joint pain, edema Neurologic: headaches, seizures Hematologic: easy bruising or bleeding Endocrine: night sweats, acute weight loss Skin: rash, jaundice, redness Psychiatric: suicidal, homicidal ideation Past History Past Medical History: hypertension Past Surgical History: No surgical history Social history: Lives alone, smoking, alcohol abuse Family history: no significant family history Medications and Allergies Allergies Allergy/AdvReac Type Severity Reaction Status Date / Time No Known Allergies Allergy Verified 07/04/20 09:37 Home Medications Medication Instructions Recorded Confirmed Last Taken Type Albuterol Mdi (or & Nicu Only) 2 puff IH QID PRN #8.5 gram 10/29/19 05/08/20 05/08/20 10:01 Rx [ProAir HFA Inhaler] cephALEXin [Keflex] 500 mg PO Q12HR #10 cap 10/29/19 05/08/20 Unknown Rx lisinopriL [Zestril TAB] 20 mg PO QDAY #90 tablet 10/29/19 05/08/20 05/08/20 10:01 Rx Albuterol Sulfate [Albuterol 0.63% 0.63 mg IH TID PRN #1 box 05/09/20 Unknown Rx NEBS] Compressor, For Nebulizer [Ebase 1 each MC TID PRN #1 each 05/09/20 Unknown Rx Controller] Ipratropium [Atrovent NEB] 0.5 mg IH Q8HRT PRN #1 box 05/09/20 Unknown Rx Prednisone [predniSONE 10 mg 10 mg PO .TAPER #1 tab.ds.pk 05/09/20 Unknown Rx (6-Day Pack, 21 Tabs)] amLODIPine 10 mg PO DAILY #90 tab 07/04/20 Unknown Rx levoFLOXacin [Levaquin TAB] 500 mg PO QDAY #7 tablet 07/04/20 Unknown Rx Active Meds: Active Medications Acetaminophen (Acetaminophen 325 Mg Tab) 650 mg PO Q4H PRN PRN Reason: Pain MILD(1-3)/Fever >100.5/TAPIA Al Hydrox/Mg Hydrox/Simethicone (Alum-Mag Hydroxide-Simethicone [phone]/5ml Oral Liqd 30 Ml) 30 ml PO Q4H PRN PRN Reason: Indigestion Albuterol (Albuterol 2.5 Mg/3 Ml Nebu) 2.5 mg IH Q4HRT PRN PRN Reason: Shortness Of Breath Albuterol/Ipratropium (Ipratropium/Albuterol Sulfate 3 Ml Ampul.Neb) 1 ampul IH Q6HRT [facility] [place] Last Admin: 10/27/20 14:33 Dose: 1 ampul Documented by: Docusate Sodium (Docusate Sodium 100 Mg Cap) 100 mg PO BID PRN PRN Reason: Constipation Famotidine (Famotidine 20 Mg Tab) 20 mg PO BID BLACK Heparin Sodium (Porcine) (Heparin 5,000 Unit/1 Ml Vial) 5,000 unit SUB-Q Q12HR [facility] [place] Last Admin: 10/27/20 09:19 Dose: 5,000 unit Documented by: Hydralazine HCl (Hydralazine 20 Mg/1 Ml Inj) 5 mg IV Q4HR PRN PRN Reason: Hypertension Last Admin: 10/27/20 03:32 Dose: 5 mg Documented by: Hydromorphone HCl (Hydromorphone 1 Mg/1 Ml Inj) 0.25 mg IV Q4H PRN PRN Reason: Pain, Moderate (4-6) Last Admin: 10/27/20 03:57 Dose: 0.25 mg Documented by: Sodium Chloride (Nacl 0.9% 1000 Ml) 1,000 mls @ 100 mls/hr IV DIRECT [facility] [place] Last Admin: 10/27/20 00:51 Dose: 100 mls/hr Documented by: Ceftriaxone Sodium (Rocephin/Ns 1 Gm/50 Ml) 1 gm in 50 mls @ 100 mls/hr IV Q24H [facility] [place]; Protocol Stop: 10/29/20 00:14 Last Admin: 10/27/20 00:51 Dose: 100 mls/hr Documented by: Lisinopril (Lisinopril 20 Mg Tab) 20 mg PO DAILY [facility] [place] Last Admin: 10/27/20 09:19 Dose: 20 mg Documented by: Magnesium Hydroxide (Magnesium Hydroxide (Mom) Oral Liqd Udc) 30 ml PO Q4H PRN PRN Reason: Constipation Metoclopramide HCl (Metoclopramide 10 Mg/2 Ml Inj) 10 mg IV Q6H PRN PRN Reason: Nausea And Vomiting Nicotine (Nicotine 7 Mg/24 Hr Patch) 7 mg TD QDAY [facility] [place] Last Admin: 10/27/20 09:38 Dose: 7 mg Documented by: Ondansetron HCl (Ondansetron 4 Mg/2 Ml Inj) 4 mg IV Q8H PRN PRN Reason: Nausea And Vomiting Sodium Chloride (Sodium Chloride 0.9% 10 Ml Flush Syringe) 10 ml IV BID [facility] [place] Last Admin: 10/27/20 09:20 Dose: 10 ml Documented by: Sodium Chloride (Sodium Chloride 0.9% 10 Ml Flush Syringe) 10 ml IV PRN PRN PRN Reason: LINE FLUSH Physical Examination - Physical Exam Narrative exam: Physical Exam: Constitutional: Alert, cooperative. No acute distress Head, Ears, Nose: Normocephalic, atraumatic. External ears, nose normal Eyes: Conjunctivae/corneas clear. No icterus. No ptosis. Neck: Supple, no meningeal signs Oral: dentition fair, no thrush Cardiovascular: S1, S2 normal. Respiratory: Good air entry, clear to auscultation bilaterally GI: Soft, non-tender; bowel sounds normal. No peritoneal signs. Musculoskeletal: No pedal edema, no cyanosis. Skin: No rash or abscess Hem/Lymphatic: No palpable cervical or supraclavicular nodes. No lymphangitis Psych: Mood ok. Affect normal Neurological: Awake, alert, oriented. No gross abnormality - Constitutional Vitals: Vital Signs Temp Pulse Resp BP Pulse Ox 98.3 F 82 16 131/73 95 10/27/20 11:11 10/27/20 14:03 10/27/20 14:03 10/27/20 11:11 10/27/20 11:11 Temperature -Last 24 Hours Temperature 98.3 F Temperature 98.3 F Temperature 97.7 F Temperature 97.8 F Temperature 98.2 F Results - Labs CBC & Chem 7: 10/27/20 04:56 10/27/20 04:56 Labs: Abnormal lab results 10/26/20 10/26/20 10/26/20 Range/Units 18:27 18:27 18:44 MCV (84-94) fl MCH (28-32) pg Plt Count 123 L (140-440) K/mm3 [place] % (Auto) (0.0-7.3) % Creatinine 1.4 H (0.8-1.3) mg/dL Glucose 144 H (75-100) mg/dL Urine WBC (Auto) 101.0 H (0.0-6.0) /HPF 10/27/20 Range/Units 04:56 MCV 96 H (84-94) fl MCH 33 H (28-32) pg Plt Count 119 L (140-440) K/mm3 [place] % (Auto) 7.8 H (0.0-7.3) % Creatinine (0.8-1.3) mg/dL Glucose (75-100) mg/dL Urine WBC (Auto) (0.0-6.0) /HPF Assessment and Plan Cultures: None A/P: 60-year-old male past medical history hypertension #Acute cystitis: Without pyelonephritis on CT. Follow-up urine cultures #Hypertension Recs: -Continue ceftriaxone for now, follow-up urine cultures -Ordered blood cultures Thank you for the consult, we will continue to follow. Mary Mccann MD [facility] O: [phone] F: [phone]
[2020-10-27] MEDS: FAMOTIDINE 20 MG TAB PO SCH (22:50)
[2020-10-28] MEDS: IPRATROPIUM/ALBUTEROL SULFATE 3 ML AMPUL.NEB IH SCH ×2 (03:24→10:20)
[2020-10-28] MEDS: SODIUM CHLORIDE 0.9% 1000 ML 1,000 ML IV SCH (06:43)
--- NOTE | 2020-10-28 08:09 | Discharge Summary ---
Providers - Providers Date of Admission: 10/26/20 21:57 Date of discharge: 10/28/20 Attending physician: ALICIA WOLFF 10/27/20 07:53 Consult to Physician [CONS] Routine Comment: Consulting Provider: JORGE L VELAZQUEZ Physician Instructions: Reason For Exam: pyelonephritis Primary care physician: [employer] Hospitalization Reason for admission: cystitis Condition: Critical Hospital course: 60-year-old male past medical history hypertension presented to the emergency room complaining of abdominal pain. He reports the pain was a 10 out of 10 that was relieved with rest he also reported associated nausea and vomiting. Otherwise denies any symptoms. Patient was noted to be afebrile since admission with a normal white count. The patient was started on ceftriaxone. Urinalysis with 101 white cells. Patient was admitted with diagnosis of acute cystitis, acute kidney injury from vasomotor nephropathy/dehydration. CT abdomen pelvis: Diffuse thickening of the urinary bladder. Renal scarring without acute pyelonephritis. ID saw the patient in consultation and recommended Rocephin IV antibiotics. Blood cultures with no growth to date. Patient remained afebrile and no leukocytosis. Creatinine improved to normal after IV fluid hydration. Therefore, patient is felt to have received maximal hospital benefit and will be discharged home. Patient is to follow-up with ID as an outpatient. Dedicated discharge time 35 minutes. Disposition: - TO HOME OR SELFCARE Time spent for discharge: 35 - Discharge Diagnoses (1) MELYSSA (acute kidney injury) Status: Acute (2) Abdominal pain Status: Acute Qualifiers: Abdominal location: generalized Qualified Code(s): R10.84 - Generalized a bdominal pain (3) UTI (urinary tract infection) Status: Acute Qualifiers: Urinary tract infection type: acute cystitis Hematuria presence: with hematuria Qualified Code(s): N30.01 - Acute cystitis with hematuria (4) Vasomotor nephropathy Status: Acute Core Measure Documentation - Palliative Care Palliative Care/ Comfort Measures: Not Applicable - Core Measures Any of the following diagnoses?: none Exam - Constitutional Vitals: Temp Pulse Resp BP Pulse Ox 98 F 68 18 138/68 97 10/28/20 05:20 10/28/20 06:00 10/27/20 23:29 10/28/20 05:20 10/27/20 23:29 General appearance: Present: no acute distress, well-nourished - EENT Eyes: Present: PERRL ENT: hearing intact, clear oral mucosa - Neck Neck: Present: supple, normal ROM - Respiratory Respiratory effort: normal Respiratory: bilateral: CTA - Cardiovascular Heart Sounds: Present: S1 & S2. Absent: rub, click - Extremities Extremities: pulses symmetrical, No edema Peripheral Pulses: within normal limits - Abdominal General gastrointestinal: Present: soft, non-tender, non-distended, normal bowel sounds Male genitourinary: Present: normal - Integumentary Integumentary: Present: clear, warm, dry - Musculoskeletal Musculoskeletal: gait normal, strength equal bilaterally - Psychiatric Psychiatric: appropriate mood/affect, intact judgment & insight - Neurologic Neurologic: CNII-XII intact, moves all extremities Plan Activity: no restrictions Weight Bearing Status: Weight Bear as Tolerated Diet: regular Follow up with: PRIMARY CARE, [Primary Care Provider] - 7 Days JOSEPH SHANNON MD [Staff Physician] - 7 Days Prescriptions: levoFLOXacin [Levaquin] 750 mg PO QDAY #5 tablet
[2020-10-28 09:03] VITALS: BP 176/85
[2020-10-28] MEDS: LISINOPRIL 20 MG TAB PO SCH (09:13)
[2020-10-28] MEDS: FAMOTIDINE 20 MG TAB PO SCH (09:13)
[2020-10-28] MEDS: HEPARIN 5,000 UNIT/1 ML VIAL SUB-Q SCH (09:15)
[2020-10-28] MEDS: NICOTINE 7 MG/24 HR PATCH TD SCH (09:19)
== END 2020-10-28 10:31 | disposition home or self-care (01) ==
LOC: ED 16:34 → 4A 21:57
PROVIDERS: ADMIT Internal Medicine Geriatric Medicine; ATTEND Hospitalist
DX: N17.0 Acute kidney failure with tubular necrosis (principal); N12 Tubulo-interstitial nephritis, not specified as acute or chronic; N30.00 Acute cystitis without hematuria; I10 Essential (primary) hypertension; J44.9 Chronic obstructive pulmonary disease, unspecified; F17.210 Nicotine dependence, cigarettes, uncomplicated
CPT/HCPCS: 36415; 74177; 80048; 80076; 81001; 83690; 83935; 84300; 85025; 86850; 86900; 86901; 87040; 87086; 94640; 96361; 96365; 96366; 96367; 96372; 96375; 96376; 99291; 99406; G0378; J0360; J0692; J0696; J1170; J1644; J2405; J7030; Q9967

== ENCOUNTER 2020-11-06 19:42 | Emergency (ER) | payer MEDICARE ==
[2020-11-06] MEDS ORDERED: ONDANSETRON 4 MG/2 ML INJ IV ONE (20:01)
[2020-11-06] MEDS ORDERED: SODIUM CHLORIDE 0.9% 1000 ML 1,000 ML IV ONE (20:01)
[2020-11-06] MEDS ORDERED: MORPHINE 4 MG/1 ML INJ IV ONE (20:01)
[2020-11-06] MEDS ORDERED: FAMOTIDINE 20 MG/2 ML INJ IV ONE ×2 (20:01→22:47)
--- NOTE | 2020-11-06 20:05 | Event Note ---
ED Screening Note Date of service: 11/06/20 Time: 20:03 ED Screening Note: Patient is a 60-year-old -[place] male with a history of chronic alcoholism, hypertension, hyperlipidemia who presents to the ED with complaint of acute onset persistent left upper quadrant pain that radiates to the epigastric area and mid posterior thoracic area with intractable nausea and vomiting for the last 2 days worse in the last 12 hours. Patient states that he has not been able to keep anything down including fluids and his regular medications. Patient states that the pain is constant, sharp and persistent and worse with movement and palpation of the left upper quadrant area. Patient states that the pain is typical of his chronic abdominal pain for which he has previously been evaluated extensively, the last time which was about a week ago. Patient denies dizziness, syncope, diarrhea, chest pain or shortness of breath, headache, syncope, fever and chills, sore throat, dysuria, urinary frequency and urgency, hematuria, testicular pain or low back pain. This initial assessment/diagnostic orders/clinical plan/treatment(s) is/are subject to change based on patients health status, clinical progression and re- assessment by fellow clinical providers in the ED. Further treatment and workup at subsequent clinical providers discretion. Patient/guardian urged not to elope from the ED as their condition may be serious if not clinically assessed and managed. Initial orders include: CBC, CMP, UA, lipase, troponin, EKG,
[2020-11-06 20:18] LABS: Basophils % (Auto) 0.3 % (0.0-1.8); Eosinophils # (Auto) 0.2 K/mm3 (0.0-0.4); Eosinophils % (Auto) 2.2 % (0.0-4.3); Hematocrit 44.8 % (35.5-45.6); Lymphocytes # (Auto) 1.8 K/mm3 (1.2-5.4); Lymphocytes % (Auto) 21.3 % (13.4-35.0); Mean Corpuscular HGB Conc 34 % (32-34); Mean Corpuscular Volume 96 fl (84-94); Monocytes # (Auto) 0.6 K/mm3 (0.0-0.8); Monocytes % (Auto) 6.9 % (0.0-7.3); Platelet Count 129 K/mm3 (140-440); Red Blood Count 4.66 M/mm3 (3.65-5.03); Red Cell Distribution Width 14.2 % (13.2-15.2)
[2020-11-06 20:39] LABS: Alanine Aminotransferase 14 units/L (7-56); Albumin 4.6 g/dL (3.9-5); BUN/Creatinine Ratio 10; Blood Urea Nitrogen 16 mg/dL (9-20); Calcium 9.2 mg/dL (8.4-10.2); Hemolysis Index 12
[2020-11-06] MEDS ORDERED: HALOPERIDOL LACTATE 5 MG/1 ML INJ IM STA (22:37)
[2020-11-06] MEDS ORDERED: diphenhydrAMINE 50 MG/ML VIAL IV ONE (22:37)
[2020-11-06] MEDS ORDERED: LACTATED RINGERS 1,000 ML IV ONE (22:38)
--- NOTE | 2020-11-06 22:39 | Emergency Department Report ---
ED General Adult HPI - General Chief complaint: Abdominal Pain Stated complaint: ABDOMINAL PAIN PUI?: No Time Seen by Provider: 11/06/20 22:18 Source: patient, EMS ( EMS documentation not available at time of chart dictat ion ), RN notes reviewed, old records reviewed Mode of arrival: Ambulatory Limitations: Physical Limitation, Other (The patient is a poor historian) - History of Present Illness Initial comments: The patient was evaluated in the emergency department for symptoms described in the history of present illness. He/she was evaluated in the context of the global COVID-19 pandemic, which necessitated consideration that the patient might be at risk for infection with the virus that causes COVID-19. Institutional protocols and algorithms that pertain to the evaluation of patients at risk for COVID-19 are in a state of rapid change based on information released by regulatory bodies including the CDC and federal and state organizations. These policies and algorithms were followed during the patient's care in the emergency department. Please note that these policies, procedures and recommendations changed on a rapid basis. This is a 60-year-old gentleman. I am not familiar with this patient. He appea rs to have a history of COPD, hypertension, and he reports a history of chronic cannabis use. He was recently admitted to this medical service for mild renal insufficiency, and suspected pyelonephritis/cystitis. He had a CT scan of his abdomen pelvis a few days ago which was essentially negative for acute findings, with exception of possible mild cystitis, he was seen by infectious disease, started on ceftriaxone, discharged with Levaquin, and had an uneventful stay in the hospital. In addition, his cultures were negative. He presents to the ER today with a complaint of diffuse abdominal pain, cramping, nausea vomiting, malaise and fatigue, and epigastric discomfort. He is not sure if his symptoms get better with a hot bath or hot shower. His symptoms do not improve no matter what position he takes. He states has been feeling symptomatic since his recent admission. Denies headache, neck pain, exertional chest pain, shortness of breath, posterior leg pain and leg swelling, rectal pain, dyschezia, testicular pain, and urinary symptoms at this time. -: Gradual, days(s) Location: abdomen Radiation: non-radiation Quality: aching Consistency: constant Improves with: none Worsens with: other (Abdominal pain increases with palpation) - Related Data Previous Rx's Medication Instructions Recorded Last Taken Type Albuterol Mdi (or & Nicu Only) 2 puff IH QID PRN #8.5 gram 10/29/19 05/08/20 10:01 Rx [ProAir HFA Inhaler] lisinopriL [Zestril TAB] 20 mg PO QDAY #90 tablet 10/29/19 05/08/20 10:01 Rx Albuterol Sulfate [Albuterol 0.63% 0.63 mg IH TID PRN #1 box 05/09/20 Unknown Rx NEBS] Compressor, For Nebulizer [Ebase 1 each MC TID PRN #1 each 05/09/20 Unknown Rx Controller] Ipratropium [Atrovent NEB] 0.5 mg IH Q8HRT PRN #1 box 05/09/20 Unknown Rx Prednisone [predniSONE 10 mg 10 mg PO .TAPER #1 tab.ds.pk 05/09/20 Unknown Rx (6-Day Pack, 21 Tabs)] amLODIPine 10 mg PO DAILY #90 tab 07/04/20 Unknown Rx levoFLOXacin [Levaquin] 750 mg PO QDAY #5 tablet 10/28/20 Unknown Rx Acetaminophen [Non-Aspirin Extra 500 mg PO Q6HR PRN #30 tablet 11/06/20 Unknown Rx Strength] Famotidine [Pepcid] 20 mg PO QDAY #30 tablet 11/06/20 Unknown Rx Jocelynn Root [Jocelynn] 250 mg PO QID PRN #30 capsule 11/06/20 Unknown Rx Metoclopramide [Reglan] 10 mg PO QID PRN #30 tablet 11/06/20 Unknown Rx Promethazine [Phenergan SUPPOS] 50 mg VA Q6H PRN #15 supp.rect 11/06/20 Unknown Rx Allergies Allergy/AdvReac Type Severity Reaction Status Date / Time No Known Allergies Allergy Verified 07/04/20 09:37 ED Review of Systems ROS: Stated complaint: ABDOMINAL PAIN Other details as noted in HPI Constitutional: denies: fever Eyes: denies: eye discharge ENT: denies: epistaxis Respiratory: denies: cough Cardiovascular: denies: chest pain Gastrointestinal: abdominal pain, nausea, vomiting. denies: hematemesis, melena, hematochezia Genitourinary: denies: dysuria, testicular pain Musculoskeletal: denies: back pain Neurological: weakness Hematological/Lymphatic: denies: easy bleeding ED Past Medical Hx - Past Medical History Hx Hypertension: Yes Hx Asthma: Yes Hx COPD: Yes - Surgical History Additional Surgical History: suprapubic cath - Social History Smoking Status: Current Every Day Smoker - Medications Home Medications: Home Medications Medication Instructions Recorded Confirmed Last Taken Type Albuterol Mdi (or & Nicu Only) 2 puff IH QID PRN #8.5 gram 10/29/19 10/27/20 05/08/20 10:01 Rx [ProAir HFA Inhaler] lisinopriL [Zestril TAB] 20 mg PO QDAY #90 tablet 10/29/19 10/27/20 05/08/20 10:01 Rx Albuterol Sulfate [Albuterol 0.63% 0.63 mg IH TID PRN #1 box 05/09/20 10/27/20 Unknown Rx NEBS] Compressor, For Nebulizer [Ebase 1 each MC TID PRN #1 each 05/09/20 10/27/20 Unknown Rx Controller] Ipratropium [Atrovent NEB] 0.5 mg IH Q8HRT PRN #1 box 05/09/20 10/27/20 Unknown Rx Prednisone [predniSONE 10 mg 10 mg PO .TAPER #1 tab.ds.pk 05/09/20 10/27/20 Unknown Rx (6-Day Pack, 21 Tabs)] amLODIPine 10 mg PO DAILY #90 tab 07/04/20 10/27/20 Unknown Rx levoFLOXacin [Levaquin] 750 mg PO QDAY #5 tablet 10/28/20 Unknown Rx Acetaminophen [Non-Aspirin Extra 500 mg PO Q6HR PRN #30 tablet 11/06/20 Unknown Rx Strength] Famotidine [Pepcid] 20 mg PO QDAY #30 tablet 11/06/20 Unknown Rx Jocelynn Root [Jocelynn] 250 mg PO QID PRN #30 capsule 11/06/20 Unknown Rx Metoclopramide [Reglan] 10 mg PO QID PRN #30 tablet 11/06/20 Unknown Rx Promethazine [Phenergan SUPPOS] 50 mg VA Q6H PRN #15 supp.rect 11/06/20 Unknown Rx ED Physical Exam - General Limitations: No Limitations General appearance: alert, anxious, in distress - Head Head exam: Present: atraumatic, normocephalic - Eye Eye exam: Present: normal appearance, EOMI. Absent: nystagmus - ENT ENT exam: Present: normal exam, normal orophraynx, mucous membranes moist, normal external ear exam - Neck Neck exam: Present: normal inspection, full ROM. Absent: tenderness, meningismus - Respiratory Respiratory exam: Present: normal lung sounds bilaterally. Absent: respiratory distress, wheezes, rales, rhonchi, stridor - Cardiovascular Cardiovascular Exam: Present: normal rhythm, tachycardia, normal heart sounds. Absent: systolic murmur, diastolic murmur, rubs, gallop - GI/Abdominal GI/Abdominal exam: Present: soft, tenderness, guarding (Diffuse voluntary guarding). Absent: distended, rebound, rigid, pulsatile mass - Rectal Rectal exam: Present: deferred - exam: Present: normal inspection External exam: Present: normal external exam - Extremities Exam Extremities exam: Present: normal inspection, full ROM, other (2+ pulses noted in the bilateral upper and lower extremities. There is no palpable cord. negative Homans sign. Muscular compartments are soft. The pelvis is stable.). Absent: pedal edema, calf tenderness - Back Exam Back exam: Present: normal inspection, full ROM. Absent: tenderness, CVA tenderness (R), CVA tenderness (L), paraspinal tenderness, vertebral tenderness - Neurological Exam Neurological exam: Present: alert, other (No facial droop. Tongue midline. Extraocular movements intact bilaterally. Facial sensation intact to light touch in V1, V2, V3 distribution bilaterally. 5 and a 5 strength in 4 extremities. Sensation intact to light touch in 4 extremities.). Absent: motor sensory deficit - Psychiatric Psychiatric exam: Present: normal mood, anxious - Skin Skin exam: Present: warm, dry, intact, normal color. Absent: rash ED Course Vital Signs 11/06/20 11/07/20 19:55 00:11 Temperature 99.0 F Pulse Rate 138 H 90 Respiratory 18 10 L Rate Blood Pressure 213/129 Blood Pressure 161/93 [left arm] O2 Sat by Pulse 99 98 Oximetry - Reevaluation(s) Reevaluation #1: 11/06/20 22:50 Differential diagnosis, including but not limited to: Cannabinoid hyperemesis syndrome, cyclic vomiting syndrome, narcotic bowel syndrome, obstruction, colitis, diverticulitis, perforated viscus, pyelonephritis Assessment and plan: 60-year-old gentleman with persistent abdominal pain, cramping, nausea and vomiting, reports history of chronic cannabis use, recently had CT scan of the abdomen pelvis at this facility which was essentially negative for significant findings, he was presumptively diagnosed with pyelonephritis during his recent hospitalization, however, it is my opinion that cannabinoid hyperemesis syndrome is a much more likely diagnosis. We will therefore treat this patient with haloperidol, famotidine, fluids, and reassess. I will repeat a CT scan of the abdomen pelvis to assess for interval changes, the patient is clinically sober at this time, and does not meet criteria for 1013 or involuntary hold, has not endorsed any desire to harm himself or overdose, therefore, no indication for Tylenol/aspirin level. He denies rectal pain and dyschezia, therefore, I think prostatitis is unlikely. Reports he has difficulty tolerating liquid feeds. Troponin negative in the context of days of symptoms, EKG is unchanged from prior, patient at low risk for major adverse cardiac event, he is not currently tachypneic or hypoxic, therefore, I think DVT, pulmonary embolism is unlikely, and that finds patient to be low risk by Wells criteria for pulmonary embolism. His tachycardia and hypertension are likely physiologic responses to his presumed cannabinoid hyperemesis syndrome, and his acute on chronic abdominal pain. Please reference the [employer] clinical policy on asymptomatic hypertension that does not demonstrate evidence of endorgan dysfunction 11/06/20 23:53 Reevaluation #2: 11/06/20 23:39 Heart rate 94 bpm. Patient sleeping comfortably in stretcher at this time, he is in no acute distress. Reevaluation #3: 11/06/20 23:49 CT scan of the abdomen pelvis is negative for acute disease. No active vomi ting. I am awaiting urinalysis, and repeat blood pressure. Reevaluation #4: 11/07/20 00:38 Blood pressure much improved. No active vomiting. Patient resting comfortably in no acute distress. The patient specifically denied irritative and obstructive urinary symptoms to myself. He also had negative urine cultures and blood cultures within the past few weeks. This is most likely cannabinoid hyperemesis syndrome. Discharge with outpatient follow-up. ED Medical Decision Making - Lab Data Result diagrams: 11/06/20 20:09 11/06/20 20:09 Vital Signs 11/06/20 19:55 Temperature 99.0 F Pulse Rate 138 H Respiratory 18 Rate Blood Pressure 213/129 O2 Sat by Pulse 99 Oximetry Lab Results 11/06/20 11/06/20 Range/Units 20:09 20:09 WBC 8.3 (4.5-11.0) K/mm3 RBC 4.66 (3.65-5.03) M/mm3 Hgb 15.0 (11.8-15.2) gm/dl Hct 44.8 (35.5-45.6) % MCV 96 H (84-94) fl MCH 32 (28-32) pg MCHC 34 (32-34) % RDW 14.2 (13.2-15.2) % Plt Count 129 L (140-440) K/mm3 Lymph % (Auto) 21.3 (13.4-35.0) % Terrell % (Auto) 6.9 (0.0-7.3) % Eos % (Auto) 2.2 (0.0-4.3) % Baso % (Auto) 0.3 (0.0-1.8) % Lymph # (Auto) 1.8 (1.2-5.4) K/mm3 Terrell # (Auto) 0.6 (0.0-0.8) K/mm3 Eos # (Auto) 0.2 (0.0-0.4) K/mm3 Baso # (Auto) 0.0 (0.0-0.1) K/mm3 Seg Neutrophils % 69.3 (40.0-70.0) % Seg Neutrophils # 5.7 (1.8-7.7) K/mm3 Sodium 137 (137-145) mmol/L Potassium 4.4 (3.6-5.0) mmol/L Chloride 99.4 (98-107) mmol/L Carbon Dioxide 28 (22-30) mmol/L Anion Gap 14 mmol/L BUN 16 (9-20) mg/dL Creatinine 1.6 H (0.8-1.3) mg/dL Estimated GFR 54 ml/min BUN/Creatinine Ratio 10 % Glucose 105 H (75-100) mg/dL Calcium 9.2 (8.4-10.2) mg/dL Total Bilirubin 0.50 (0.1-1.2) mg/dL AST 15 (5-40) units/L ALT 14 (7-56) units/L Alkaline Phosphatase 80 (35-129) units/L Troponin T < 0.010 (0.00-0.029) ng/mL Total Protein 7.5 (6.3-8.2) g/dL Albumin 4.6 (3.9-5) g/dL Albumin/Globulin Ratio 1.6 % Lipase 37 (13-60) units/L - EKG Data -: EKG Interpreted by Pr EKG shows normal: sinus rhythm Rate: normal - EKG Data Interpretation: unchanged when compared t 11/06/20 22:49 EKG today appears to be unchanged from prior EKG from April 2020. Sinus rhythm, tachycardia, 103 bpm. Normal axis, QTC 445 ms. Left ventricular hypertrophy, borderline poor R wave progression. This is an abnormal EKG. This is not a STEMI. - Radiology Data Radiology results: pending, report reviewed, image reviewed CT ABDOMEN AND PELVIS WITH CONTRAST INDICATION / CLINICAL INFORMATION: Abdominal Pain. TECHNIQUE: Axial CT images were obtained through the abdomen and pelvis after 100 mL Omnipaque [address] scans at this location are performed using CT dose reduction for ALARA by means of automated exposure control. COMPARISON: CT dated 10/27/19 FINDINGS: LOWER CHEST: No acute abn ormality. LIVER: No significant abnormality. GALLBLADDER: No significant abnormality. BILE DUCTS: No significant abnormality. PANCREAS: No significant abnormality. SPLEEN: Spleen is enlarged measuring 15 cm in craniocaudad dimension containing calcified granulomas. No change. ADRENALS: No significant abnormality. RIGHT KIDNEY / URETER: Mild renal scarring without definite acute abnormality. LEFT KIDNEY / URETER: Mild renal scarring without definite acute abnormality. STOMACH / SMALL BOWEL: No significant abnormality. COLON: No significant abnormality. APPENDIX: Not visualized. PERITONEUM: No free fluid. No free air. No fluid collection. LYMPH NODES: No significant adenopathy. AORTA / ARTERIES: Mild atherosclerotic calcification without acute abnormality. IVC / VEINS: No significant abnormality. URINARY BLADDER: Moderate diffuse thickening of the urinary bladder possibly related to cystitis or UTI. REPRODUCTIVE ORGANS: Metallic fiducial markers in the prostate. ADDITIONAL FINDINGS: None. SKELETAL SYSTEM: Several small sclerotic lesions appear stable. No new skeletal lesions. IMPRESSION: 1. Diffuse thickening the urinary bladder possibly related to cystitis or UTI. 2. Renal scarring but no definite acute pyelonephritis. 3. Stable splenomegaly. Signer Name: Dora Schneider MD Signed: 10/26/2020 6:50 PM Workstation Name: [id number] CHEST 1 VIEW 11/06/2020 10:51 PM INDICATION / CLINICAL INFORMATION: epigastric pain n/v. COMPARISON: 10/27/2019 FINDINGS: SUPPORT DEVICES: None. HEART / MEDIASTINUM: No significant abnormality. LUNGS / PLEURA: Stable calcified granuloma in the medial right lower lung. No acute findings. No pneumothorax. ADDITIONAL FINDINGS: No significant additional findings. IMPRESSION: 1. No acute findings. Signer Name: Oscar Fournier MD Signed: 11/06/2020 9:57 PM Workstation Name: [id number] Critical care attestation.: If time is entered above; I have spent that time in minutes in the direct care of this critically ill patient, excluding procedure time. ED Disposition Clinical Impression: Acute abdominal pain, History of nausea and vomiting, Marijuana use, Elevated blood pressure reading Disposition: TO HOME OR SELFCARE Is pt being admited?: No Does the pt Need Aspirin: No Condition: Stable Instructions: Cannabis Use Disorder, Abdominal Pain, Adult, [id number] Additional Instructions: Take the prescribed pain medication, nausea medication as needed and directed. Do not take Metformin medication for the next 2 days, if patient takes this medication. Patient may take the jocelynn tablets, regular medication as needed for nausea and vomiting, and Phenergan suppository for intractable nausea and vomiting not relieved by the oral medications. Patient most likely has cannabinoid hyperemesis syndrome. Treatment is to stop smoking marijuana and stop being exposed to marijuana. Marijuana is typically f at-soluble, which means it will reside in the fatty tissues for 3 to 6 weeks, so it may take 3 to 6 weeks for patient's symptoms to completely subside. In addition to the aforementioned interventions, patient may take a hot bath or hot shower at home as often as as needed to help out with symptoms, and patient may also apply hot sauce, such as Tabasco (the particular brand does not matter, any hot sauce will do), to the anterior abdominal wall as often as as needed for symptomatic relief. We do recommend follow-up with the primary care doctor or staff pharmacist within the next 5 to 7 days. Please return to the emergency room right away with new pain, worsening pain, migration of pain, projectile vomiting, change in mental status, confusion, inability to tolerate liquid feeds, new, worsened or different symptoms not present on the initial emergency room evaluation. Avoid consumption of Motrin, ibuprofen, Naprosyn, Aleve, heavy and spicy foods, alcohol, tobacco, smoke products, and marijuana products. Please continue current outpatient blood pressure medications. Long-term complications of hypertension and elevated blood pressure include stroke, heart attack, disability, paralysis, loss of quality of life. Prescriptions: Jocelynn Root [Jocelynn] 250 mg PO QID PRN #30 capsule PRN Reason: Nausea Acetaminophen [Non-Aspirin Extra Strength] 500 mg PO Q6HR PRN #30 tablet PRN Reason: Pain , Severe (7-10) Famotidine [Pepcid] 20 mg PO QDAY #30 tablet Promethazine [Phenergan SUPPOS] 50 mg VA Q6H PRN #15 supp.rect PRN Reason: Nausea Metoclopramide [Reglan] 10 mg PO QID PRN #30 tablet PRN Reason: Nausea Referrals: [facility] [Provider Group] - 3-5 Days [facility] [Provider Group] - 3-5 Days Heart Score - HEART Score History: Slightly suspicious EKG: Non-specific Age: 45-65 Risk factors: 1-2 risk factors Troponin: < normal limit HEART Score: 3 - Critical Actions Critical Actions: 0-3 pts:0.9-1.7%risk of adverse cardiac event.Candidate for discharge
--- NOTE | 2020-11-06 23:01 | XRay Report ---
CHEST 1 VIEW 11/06/2020 10:51 PM INDICATION / CLINICAL INFORMATION: epigastric pain n/v. COMPARISON: 10/27/2019 FINDINGS: SUPPORT DEVICES: None. HEART / MEDIASTINUM: No significant abnormality. LUNGS / PLEURA: Stable calcified granuloma in the medial right lower lung. No acute findings. No pneu mothorax. ADDITIONAL FINDINGS: No significant additional findings. IMPRESSION: 1. No acute findings. Signer Name: Oscar Fournier MD Signed: 11/06/2020 10:57 PM Workstation Name: [id number]
--- NOTE | 2020-11-06 23:44 | Cat Scan Report ---
CT ABDOMEN AND PELVIS WITH CONTRAST HISTORY: Acute abdominal pain, nausea, vomiting COMPARISON: 10/26/2020 TECHNIQUE: Routine abdominal and pelvic CT exam performed following intravenous contrast administrat ion.. All CT scans at this location are performed using CT dose reduction for ALARA by means of autom ated exposure control. FINDINGS: CT ABDOMEN: Lung Bases: No significant abnormality. Liver: No significant abnormality. Biliary: No significant abnormality. Spleen: Multiple calcified granulomas. Pancreas: No significant abnormality. Adrenals: No significant abnormality. Kidneys: No significant abnormality. Lymphatics: No lymphadenopathy. Vasculature: Atherosclerotic but nonaneurysmal abdominal aorta. Bowel/Peritoneum: No significant abnormality. No free air. No free fluid. Appendix not visualized. No pericecal inflammation. CT PELVIC: : No significant abnormality. Lymphatics: No lymphadenopathy. Osseous Structures: No aggressive appearing osseous lesions. Additional Findings: None IMPRESSION: 1. No acute findings or adverse change from prior exam. Signer Name: Oscar Fournier MD Signed: 11/06/2020 11:39 PM Workstation Name: [id number]
[2020-11-07 00:12] VITALS: BP 161/93
== END 2020-11-07 00:51 | disposition home or self-care (01) ==
LOC: ED 19:42
DX: R10.84 Generalized abdominal pain (principal); R11.2 Nausea with vomiting, unspecified; F12.10 Cannabis abuse, uncomplicated; I10 Essential (primary) hypertension; J44.9 Chronic obstructive pulmonary disease, unspecified; F17.200 Nicotine dependence, unspecified, uncomplicated; Z79.899 Other long term (current) drug therapy
CPT/HCPCS: 36415; 71045; 74177; 80053; 82550; 83690; 83735; 84484; 85025; 93005; 96361; 96372; 96374; 96375; 99284; J1200; J1630; J7120; Q9967; J7030

== ENCOUNTER 2021-02-09 00:17 | Emergency (ER) | payer MEDICARE ==
[2021-02-09] MEDS ORDERED: MORPHINE 4 MG/1 ML INJ IV ONE ×2 (00:44→02:02)
[2021-02-09] MEDS ORDERED: ONDANSETRON 4 MG/2 ML INJ IV ONE (00:44)
--- NOTE | 2021-02-09 00:47 | Emergency Department Report ---
HPI - General Chief Complaint: Abdominal Pain Time Seen by Provider: 02/09/21 00:25 - HPI HPI: This is a 61-year-old -Citizen Of [place] male presents to the emergency department via EMS from home with complaint of abdominal pain, nausea and vomiting. Sympt oms started sometime yesterday evening after the patient ate some chicken. Currently he says his abdominal pain is 7 out of 10 in intensity. No known aggravating or alleviating factors. He denies any dysuria, fever, diarrhea, constipation, back pain. The patient has a history of hypertension and presents with elevated blood pressure but has not been able to take his lisinopril secondary to the nausea vomiting. He also has a history of asthma and COPD. He is not oxygen dependent and continues to smoke cigarettes. He has a primary care physician but has not seen them regarding his symptoms. No recent travel or sick contacts at home. ED Past Medical Hx - Past Medical History Hx Hypertension: Yes Hx Asthma: Yes Hx COPD: Yes - Surgical History Additional Surgical History: suprapubic cath - Social History Smoking Status: Never Smoker - Medications Home Medications: Home Medications Medication Instructions Recorded Confirmed Last Taken Type Albuterol Mdi (or & Nicu Only) 2 puff IH QID PRN #8.5 gram 10/29/19 10/27/20 05/08/20 10:01 Rx [ProAir HFA Inhaler] lisinopriL [Zestril TAB] 20 mg PO QDAY #90 tablet 10/29/19 10/27/20 05/08/20 10:01 Rx Albuterol Sulfate [Albuterol 0.63% 0.63 mg IH TID PRN #1 box 05/09/20 10/27/20 Unknown Rx NEBS] Compressor, For Nebulizer [Ebase 1 each MC TID PRN #1 each 05/09/20 10/27/20 Unknown Rx Controller] Ipratropium [Atrovent NEB] 0.5 mg IH Q8HRT PRN #1 box 05/09/20 10/27/20 Unknown Rx Prednisone [predniSONE 10 mg 10 mg PO .TAPER #1 tab.ds.pk 05/09/20 10/27/20 Unknown Rx (6-Day Pack, 21 Tabs)] amLODIPine 10 mg PO DAILY #90 tab 07/04/20 10/27/20 Unknown Rx levoFLOXacin [Levaquin] 750 mg PO QDAY #5 tablet 10/28/20 Unknown Rx Acetaminophen [Non-Aspirin Extra 500 mg PO Q6HR PRN #30 tablet 11/06/20 Unknown Rx Strength] Famotidine [Pepcid] 20 mg PO QDAY #30 tablet 11/06/20 Unknown Rx Jocelynn Root [Jocelynn] 250 mg PO QID PRN #30 capsule 11/06/20 Unknown Rx Metoclopramide [Reglan] 10 mg PO QID PRN #30 tablet 11/06/20 Unknown Rx Promethazine [Phenergan SUPPOS] 50 mg VT Q6H PRN #15 supp.rect 11/06/20 Unknown Rx HYDROcodone/APAP 5-325 [[place] 1 each PO Q6HR PRN #10 tablet 02/09/21 Unknown Rx 5/325] Ondansetron [Zofran Odt] 4 mg PO Q8HR PRN #12 tab.rapdis 02/09/21 Unknown Rx ED Review of Systems ROS: Stated complaint: EMESIS, ABD PAIN Other details as noted in HPI Comment: All other systems reviewed and negative Constitutional: denies: chills, fever Eyes: denies: eye pain, vision change ENT: denies: ear pain, throat pain Respiratory: denies: cough, shortness of breath Cardiovascular: denies: chest pain, palpitations Gastrointestinal: abdominal pain, nausea, vomiting. denies: diarrhea, constipation Genitourinary: denies: dysuria, discharge Musculoskeletal: denies: back pain, arthralgia Skin: denies: rash, lesions Neurological: denies: headache, weakness Physical Exam - Physical Exam Vital Signs: Vital Signs 02/09/21 00:32 Temperature 98.4 F Pulse Rate 101 H Respiratory 18 Rate Blood Pressure 194/124 O2 Sat by Pulse 98 Oximetry Physical Exam: GENERAL: The patient is well-developed well-nourished. HENT: Normocephalic. Atraumatic. Patient has moist mucous membranes. EYES: Extraocular motions are intact. NECK: Supple. Trachea is midline. CHEST/LUNGS: Clear to auscultation. There is no respiratory distress noted. HEART/CARDIOVASCULAR: Regular. There is no tachycardia. There is no murmur. ABDOMEN: Abdomen is soft. Generalized abdominal tenderness to palpation with up per quadrants greater than lower quadrants. No guarding. Patient has normal bowel sounds. There is no abdominal distention. SKIN: Skin is warm and dry. NEURO: The patient is awake, alert, and oriented. The patient is cooperative. The patient has no focal neurologic deficits. Normal speech. MUSCULOSKELETAL: There is no tenderness or deformity. There is no limitation range of motion. ED Course Vital Signs 02/09/21 00:32 Temperature 98.4 F Pulse Rate 101 H Respiratory 18 Rate Blood Pressure 194/124 O2 Sat by Pulse 98 Oximetry ED Medical Decision Making - Lab Data Result diagrams: 02/09/21 00:50 02/09/21 00:50 Lab Results 02/09/21 02/09/21 02/09/21 Range/Units 00:50 00:50 Unknown WBC 8.4 (4.5-11.0) K/mm3 RBC 4.67 (3.65-5.03) M/mm3 Hgb 15.3 H (11.8-15.2) gm/dl Hct 44.6 (35.5-45.6) % MCV 96 H (84-94) fl MCH 33 H (28-32) pg MCHC 34 (32-34) % RDW 13.7 (13.2-15.2) % Plt Count 135 L (140-440) K/mm3 Lymph % (Auto) 18.6 (13.4-35.0) % [place] % (Auto) 6.0 (0.0-7.3) % Eos % (Auto) 0.6 (0.0-4.3) % Baso % (Auto) 0.3 (0.0-1.8) % Lymph # (Auto) 1.6 (1.2-5.4) K/mm3 [place] # (Auto) 0.5 (0.0-0.8) K/mm3 Eos # (Auto) 0.1 (0.0-0.4) K/mm3 Baso # (Auto) 0.0 (0.0-0.1) K/mm3 Seg Neutrophils % 74.5 H (40.0-70.0) % Seg Neutrophils # 6.2 (1.8-7.7) K/mm3 Sodium 139 (137-145) mmol/L Potassium 3.9 (3.6-5.0) mmol/L Chloride 98.9 (98-107) mmol/L Carbon Dioxide 28 (22-30) mmol/L Anion Gap 16 mmol/L BUN 15 (9-20) mg/dL Creatinine 1.2 (0.8-1.3) mg/dL Estimated GFR > 60 ml/min BUN/Creatinine Ratio 13 % Glucose 154 H (75-100) mg/dL Calcium 9.8 (8.4-10.2) mg/dL Total Bilirubin 0.40 (0.1-1.2) mg/dL Direct Bilirubin < 0.2 (0-0.2) mg/dL Indirect Bilirubin 0.2 mg/dL AST 16 (5-40) units/L ALT 13 (7-56) units/L Alkaline Phosphatase 98 (35-129) units/L Total Protein 7.8 (6.3-8.2) g/dL Albumin 4.7 (3.9-5) g/dL Albumin/Globulin Ratio 1.5 % Lipase 28 (13-60) units/L Urine Color Yellow (Yellow) Urine Turbidity Clear (Clear) Urine pH 6.0 (5.0-7.0) Ur Specific [place] 1.023 (1.003-1.030) Urine Protein 30 mg/dl (Negative) mg/dL Urine Glucose (UA) 50 (Negative) mg/dL Urine Ketones Neg (Negative) mg/dL Urine Blood Neg (Negative) Urine Nitrite Neg (Negative) Urine Bilirubin Neg (Negative) Urine Urobilinogen 2.0 (<2.0) mg/dL Ur Leukocyte Esterase Neg (Negative) Urine WBC (Auto) 12.0 H (0.0-6.0) /HPF Urine RBC (Auto) 1.0 (0.0-6.0) /HPF U Epithel Cells (Auto) 1.0 (0-13.0) /HPF Urine Bacteria (Auto) 1+ (Negative) /HPF Urine Mucus Few /HPF - Radiology Data Radiology results: report reviewed, image reviewed interpreted by me: Chest x-ray does not show any acute process. There are no pleural effusions, obvious pneumonia and there is no pneumothorax. No significant cardiomegaly. Abdominal x-ray shows nonspecific nonobstructive bowel gas. No free air. CT ABDOMEN AND PELVIS WITH CONTRAST INDICATION / CLINICAL INFORMATION: Patient complains of abdominal pain with nausea and vomiting. TECHNIQUE: Axial CT images were obtained through the abdomen and pelvis after 100 cc Omnipaque 300 milligrams percent IV contrast. All CT scans at this location are performed using CT dose reduction for ALARA by means of automated exposure control. COMPARISON: None available. FINDINGS: Exam is of limited diagnostic quality secondary to lack of intra-abdominal fat LOWER CHEST: No significant abnormality. LIVER: No significant abnormality. GALLBLADDER: No significant abnormality. BILE DUCTS: No significant abnormality. PANCREAS: No significant abnormality. SPLEEN: No significant abnormality. Calcified granulomas present within the spleen ADRENALS: No significant abnormality. RIGHT KIDNEY and URETER: No significant abnormality. LEFT KIDNEY and URETER: No significant abnormality. STOMACH and SMALL BOWEL: No significant abnormality. COLON: No significant ab normality. APPENDIX: No significant abnormality. PERITONEUM: No free fluid. No free air. No fluid collection. LYMPH NODES: No significant adenopathy. AORTA and ARTERIES: Atherosclerotic calcified plaque abdominal aorta IVC and VEINS: No significant abnormality. URINARY BLADDER: No significant abnormality. REPRODUCTIVE ORGANS: No significant abnormality. ADDITIONAL FINDINGS: None. SKELETAL SYSTEM: No significant abnormality. IMPRESSION: 1. Limited exam secondary to lack of intra-abdominal fat - Medical Decision Making This patient presents with generalized abdominal pain with upper greater than lower, as well as nausea with vomiting, that has been going on since yesterday. There is some reproducible tenderness to palpation but otherwise the abdomen is soft, nondistended and nontoxic in appearance. Labs have been mostly unremarkable including CBC, metabolic panel, lipase and urinalysis. CT scan of the abdomen and pelvis with IV contrast does not show any intra-abdominal or pelvic pathology. The patient has been seen here multiple times in the past for similar symptoms. The patient presented with hypertension as he has not been able to take his blood pressure medication secondary to the nausea and vomiting. He was given a few doses of IV analgesia, antiemetics, and antihypertensive medications. Upon reevaluation he appears greatly improved. There has been no further nausea and vomiting while in the emergency department. The patient is seen sleeping and/or resting comfortably at different times during his ED course. He was able to pass an oral challenge. For all these reasons he appears safe for discharge home at this time. He has been given an outpatient referral for [facility], as well as prescriptions for nausea medication and a small amount of pain medication. He has been instructed to return to the emergency department with any worsening of his symptoms or with any acute distress. Critical Care Time: No Critical care attestation.: If time is entered above; I have spent that time in minutes in the direct care of this critically ill patient, excluding procedure time. ED Disposition Clinical Impression: Hypertension Qualifiers: Hypertension type: essential hypertension Qualified Code(s): I10 - Essential (primary) hypertension Nausea & vomiting Qualifiers: Vomiting type: unspecified Vomiting Intractability: non-intractable Qualified Code(s): R11.2 - Nausea with vomiting, unspecified Abdominal pain Qualifiers: Abdominal location: unspecified location Qualified Code(s): R10.9 - Unspecified abdominal pain Disposition: TO HOME OR SELFCARE Is pt being admited?: No Condition: Stable Instructions: Abdominal Pain, Adult, Nausea and Vomiting, Adult, Hypertension, Adult, Hypertension (ED) Additional Instructions: Please follow-up with a primary care physician in the next few days. I have given you a referral for [facility] to follow-up regarding your abdominal pain. Take all of your medications as prescribed. Try to stay away from foods that are high in salt and caffeinated products. Keep a blood pressure log. Increase your oral rehydration. You have been prescribed a medication that is sedating and therefore should not be taken prior to driving, working, and responsible for children and in no way should be mixed with alcohol of any quantity. Return to the emergency department with any worsening of your symptoms, new or concerning symptoms not addressed during this current emergency department visit, or with any acute distress. Prescriptions: HYDROcodone/APAP 5-325 [[place] 5/325] 1 each PO Q6HR PRN #10 tablet PRN Reason: Pain Ondansetron [Zofran Odt] 4 mg PO Q8HR PRN #12 tab.rapdis PRN Reason: Nausea Referrals: PRIMARY [facility] [Primary Care Provider] - 2-3 Days [facility] [Provider Group] - 2-3 Days Time of Disposition: 04:23
[2021-02-09 01:10] LABS: Basophils % (Auto) 0.3 % (0.0-1.8); Eosinophils # (Auto) 0.1 K/mm3 (0.0-0.4); Eosinophils % (Auto) 0.6 % (0.0-4.3); Hematocrit 44.6 % (35.5-45.6); Hemoglobin 15.3 gm/dl (11.8-15.2); Lymphocytes # (Auto) 1.6 K/mm3 (1.2-5.4); Lymphocytes % (Auto) 18.6 % (13.4-35.0); Mean Corpuscular HGB Conc 34 % (32-34); Mean Corpuscular Volume 96 fl (84-94); Monocytes # (Auto) 0.5 K/mm3 (0.0-0.8); Platelet Count 135 K/mm3 (140-440); Red Blood Count 4.67 M/mm3 (3.65-5.03); Red Cell Distribution Width 13.7 % (13.2-15.2)
[2021-02-09 01:14] LABS: Bacteria,Urine 1+ /HPF (Negative); Bilirubin,Urine NEG (Negative); Blood,Urine NEG (Negative); Color,Urine Yellow (Yellow); Mucus,Urine FEW /HPF
[2021-02-09 01:35] LABS: Alanine Aminotransferase 13 units/L (7-56); Albumin 4.7 g/dL (3.9-5); BUN/Creatinine Ratio 13; Blood Urea Nitrogen 15 mg/dL (9-20); Calcium 9.8 mg/dL (8.4-10.2); Hemolysis Index 16
[2021-02-09 01:37] LABS: Bilirubin,Direct < 0.2 mg/dL (0-0.2)
[2021-02-09] MEDS ORDERED: hydrALAZINE 20 MG/1 ML INJ IV ONE (01:43)
[2021-02-09] MEDS ORDERED: METOCLOPRAMIDE 10 MG/2 ML INJ IV ONE (02:02)
[2021-02-09] MEDS ORDERED: METOCLOPRAMIDE 10 MG/2 ML INJ ONE (02:07)
--- NOTE | 2021-02-09 04:04 | Cat Scan Report ---
CT ABDOMEN AND PELVIS WITH CONTRAST INDICATION / CLINICAL INFORMATION: Patient complains of abdominal pain with nausea and vomiting. TECHNIQUE: Axial CT images were obtained through the abdomen and pelvis after 100 cc Omnipaque 300 milligrams pe rcent IV contrast. All CT scans at this location are performed using CT dose reduction for ALARA by means of automated exposure control. COMPARISON: None available. FINDINGS: Exam is of limited diagnostic quality secondary to lack of intra-abdominal fat LOWER CHEST: No significant abnormality. LIVER: No significant abnormality. GALLBLADDER: No significant abnormality. BILE DUCTS: No significant abnormality. PANCREAS: No significant abnormality. SPLEEN: No significant abnormality. Calcified granulomas present within the spleen ADRENALS: No significant abnormality. RIGHT KIDNEY and URETER: No significant abnormality. LEFT KIDNEY and URETER: No significant abnormality. STOMACH and SMALL BOWEL: No significant abnormality. COLON: No significant abnormality. APPENDIX: No significant abnormality. PERITONEUM: No free fluid. No free air. No fluid collection. LYMPH NODES: No significant adenopathy. AORTA and ARTERIES: Atherosclerotic calcified plaque abdominal aorta IVC and VEINS: No significant abnormality. URINARY BLADDER: No significant abnormality. REPRODUCTIVE ORGANS: No significant abnormality. ADDITIONAL FINDINGS: None. SKELETAL SYSTEM: No significant abnormality. IMPRESSION: 1. Limited exam secondary to lack of intra-abdominal fat Signer Name: Donato Barrera MD Signed: 02/09/2021 4:00 AM Workstation Name: [id number]
[2021-02-09 04:59] VITALS: BP 142/94
--- NOTE | 2021-02-09 08:06 | XRay Report ---
ABDOMEN 3 VIEW(S) INCLUDING CHEST INDICATION / CLINICAL INFORMATION: Abd pain. COMPARISON: CT abdomen pelvis dated 11/06/2020 FINDINGS: SUPPORT DEVICES: None. HEART / MEDIASTINUM: No significant abnormality. LUNGS / PLEURA: No significant pulmonary or pleural abnormality. No pneumothorax BOWEL: No dilated bowel. FREE AIR / EXTRALUMINAL GAS: None seen. CALCIFICATIONS: No significant abnormal calcifications. SKELETAL STRUCTURES: No significant abnormality. IMPRESSION: 1. No significant abnormality. Signer Name: Donato Barrera MD Signed: 02/09/2021 2:29 AM Workstation Name: [id number]
== END 2021-02-09 04:40 | disposition home or self-care (01) ==
LOC: ED 00:17
DX: R10.84 Generalized abdominal pain (principal); R11.2 Nausea with vomiting, unspecified; I10 Essential (primary) hypertension; J44.9 Chronic obstructive pulmonary disease, unspecified; Z98.890 Other specified postprocedural states; Z79.899 Other long term (current) drug therapy
CPT/HCPCS: 36415; 74022; 74177; 80048; 80076; 81001; 83690; 85025; 87086; 96374; 96375; 96376; 99285; J0360; J2270; J2405; J2765; Q9967

== ENCOUNTER 2021-04-03 13:40 | Emergency (ER) | payer MEDICARE ==
[2021-04-03] MEDS ORDERED: levETIRAcetam 1000 MG/NS 0.75% 1,000 MG/100 ML BAG IV ONE (13:56)
--- NOTE | 2021-04-03 14:15 | Emergency Department Report ---
ED Chest Pain HPI - General Chief Complaint: Chest Pain Stated Complaint: CP Time Seen by Provider: 04/03/21 13:49 Source: EMS Mode of arrival: Stretcher Limitations: No Limitations - History of Present Illness Initial Comments: This is a 61-year-old -[place]er male presents to the emergency department via EMS, from work, with a complaint of some left-sided chest/rib pain that has been going on for the past 4 hours. Patient denies shortness of breath, but says that his pain increases with respirations. He has not taken anything for symptoms prior to presentation today. He has a past medical history of asthma, COPD, but is not oxygen dependent, hypertension. He is a tobacco smoker and admits to chronic cannabis use. No recent travel or sick contacts at home. He has not taken anything for symptoms prior to presentation. Currently he says his pain is 7 out of 10 in intensity. No known alleviating factors. He denies any fever, cough, lower extremity swelling, back pain, abdominal pain, nausea, vomiting or diaphoresis. - Related Data Previous Rx's Medication Instructions Recorded Last Taken Type Albuterol Mdi (or & Nicu Only) 2 puff IH QID PRN #8.5 gram 10/29/19 05/08/20 10:01 Rx [ProAir HFA Inhaler] lisinopriL [Zestril TAB] 20 mg PO QDAY #90 tablet 10/29/19 05/08/20 10:01 Rx Albuterol Sulfate [Albuterol 0.63% 0.63 mg IH TID PRN #1 box 05/09/20 Unknown Rx NEBS] Compressor, For Nebulizer [Ebase 1 each MC TID PRN #1 each 05/09/20 Unknown Rx Controller] Ipratropium [Atrovent NEB] 0.5 mg IH Q8HRT PRN #1 box 05/09/20 Unknown Rx Prednisone [predniSONE 10 mg 10 mg PO .TAPER #1 tab.ds.pk 05/09/20 Unknown Rx (6-Day Pack, 21 Tabs)] amLODIPine 10 mg PO DAILY #90 tab 07/04/20 Unknown Rx levoFLOXacin [Levaquin] 750 mg PO QDAY #5 tablet 10/28/20 Unknown Rx Acetaminophen [Non-Aspirin Extra 500 mg PO Q6HR PRN #30 tablet 11/06/20 Unknown Rx Strength] Famotidine [Pepcid] 20 mg PO QDAY #30 tablet 11/06/20 Unknown Rx Jocelynn Root [Jocelynn] 250 mg PO QID PRN #30 capsule 11/06/20 Unknown Rx Metoclopramide [Reglan] 10 mg PO QID PRN #30 tablet 11/06/20 Unknown Rx Promethazine [Phenergan SUPPOS] 50 mg NC Q6H PRN #15 supp.rect 11/06/20 Unknown Rx HYDROcodone/APAP 5-325 [[place] 1 each PO Q6HR PRN #10 tablet 02/09/21 Unknown Rx 5/325] Ondansetron [Zofran Odt] 4 mg PO Q8HR PRN #12 tab.rapdis 02/09/21 Unknown Rx Ibuprofen [Motrin 600 MG tab] 600 mg PO Q8H PRN #20 tablet 04/03/21 Unknown Rx Allergies Allergy/AdvReac Type Severity Reaction Status Date / Time No Known Allergies Allergy Verified 07/04/20 09:37 Heart Score - HEART Score History: Slightly suspicious EKG: Normal Age: > 65 Risk factors: 1-2 risk factors Troponin: < normal limit HEART Score: 3 - EKG Read Time Time EKG Completed: 13:44 EKG Read Time: 13:44 - Critical Actions Critical Actions: 0-3 pts:0.9-1.7%risk of adverse cardiac event.Candidate for discharge ED Review of Systems ROS: Stated complaint: CP Other details as noted in HPI Comment: All other systems reviewed and negative Constitutional: denies: chills, fever Eyes: denies: eye pain, vision change ENT: denies: ear pain, throat pain Respiratory: denies: cough, shortness of breath, wheezing Cardiovascular: chest pain. denies: palpitations Gastrointestinal: denies: abdominal pain, vomiting Genitourinary: denies: dysuria, discharge Musculoskeletal: denies: back pain, arthralgia Skin: denies: rash, lesions Neurological: denies: headache, weakness ED Past Medical Hx - Past Medical History Previous Medical History?: Yes Hx Hypertension: Yes Hx Asthma: Yes Hx COPD: Yes - Surgical History Additional Surgical History: suprapubic cath - Social History Smoking Status: Current Every Day Smoker Substance Use Type: Alcohol, Marijuana - Medications Home Medications: Home Medications Medication Instructions Recorded Confirmed Last Taken Type Albuterol Mdi (or & Nicu Only) 2 puff IH QID PRN #8.5 gram 10/29/19 10/27/20 05/08/20 10:01 Rx [ProAir HFA Inhaler] lisinopriL [Zestril TAB] 20 mg PO QDAY #90 tablet 10/29/19 10/27/20 05/08/20 10:01 Rx Albuterol Sulfate [Albuterol 0.63% 0.63 mg IH TID PRN #1 box 05/09/20 10/27/20 Unknown Rx NEBS] Compressor, For Nebulizer [Ebase 1 each MC TID PRN #1 each 05/09/20 10/27/20 Unknown Rx Controller] Ipratropium [Atrovent NEB] 0.5 mg IH Q8HRT PRN #1 box 05/09/20 10/27/20 Unknown Rx Prednisone [predniSONE 10 mg 10 mg PO .TAPER #1 tab.ds.pk 05/09/20 10/27/20 Unknown Rx (6-Day Pack, 21 Tabs)] amLODIPine 10 mg PO DAILY #90 tab 07/04/20 10/27/20 Unknown Rx levoFLOXacin [Levaquin] 750 mg PO QDAY #5 tablet 10/28/20 Unknown Rx Acetaminophen [Non-Aspirin Extra 500 mg PO Q6HR PRN #30 tablet 11/06/20 Unknown Rx Strength] Famotidine [Pepcid] 20 mg PO QDAY #30 tablet 11/06/20 Unknown Rx Jocelynn Root [Jocelynn] 250 mg PO QID PRN #30 capsule 11/06/20 Unknown Rx Metoclopramide [Reglan] 10 mg PO QID PRN #30 tablet 11/06/20 Unknown Rx Promethazine [Phenergan SUPPOS] 50 mg NC Q6H PRN #15 supp.rect 11/06/20 Unknown Rx HYDROcodone/APAP 5-325 [[place] 1 each PO Q6HR PRN #10 tablet 02/09/21 Unknown Rx 5/325] Ondansetron [Zofran Odt] 4 mg PO Q8HR PRN #12 tab.rapdis 02/09/21 Unknown Rx Ibuprofen [Motrin 600 MG tab] 600 mg PO Q8H PRN #20 tablet 04/03/21 Unknown Rx ED Physical Exam - General Limitations: No Limitations - Other Other exam information: GENERAL: The patient is well-developed well-nourished. HENT: Normocephalic. Atraumatic. Patient has moist mucous membranes. EYES: Extraocular motions are intact. NECK: Supple. Trachea is midline. CHEST/LUNGS: Clear to auscultation. There is no respiratory distress noted. There is reproducible left-sided chest wall tenderness to palpation, without crepitus or deformity. HEART/CARDIOVASCULAR: Regular. There is no tachycardia. There is no murmur. ABDOMEN: Abdomen is soft, nontender. Patient has normal bowel sounds. There is no abdominal distention. SKIN: Skin is warm and dry. NEURO: The patient is awake, alert, and oriented. The patient is cooperative. The patient has no focal neurologic deficits. Normal speech. MUSCULOSKELETAL: There is no tenderness or deformity. There is no limitation range of motion. ED Course Vital Signs 04/03/21 04/03/21 04/03/21 14:01 14:03 14:06 Temperature 97.9 F Pulse Rate 99 H Respiratory 26 H Rate Blood Pressure Blood Pressure [Left] O2 Sat by Pulse 94 97 Oximetry 04/03/21 04/03/21 04/03/21 14:15 14:31 14:45 Temperature Pulse Rate 93 H 96 H 85 Respiratory 14 13 14 Rate Blood Pressure 150/86 149/77 149/77 Blood Pressure [Left] O2 Sat by Pulse 96 98 98 Oximetry 04/03/21 04/03/21 04/03/21 15:01 15:15 15:31 Temperature Pulse Rate 82 88 82 Respiratory 13 14 15 Rate Blood Pressure 160/87 160/87 165/98 Blood Pressure [Left] O2 Sat by Pulse 97 98 100 Oximetry 04/03/21 04/03/21 04/03/21 15:45 16:01 16:15 Temperature Pulse Rate 84 84 86 Respiratory 15 14 13 Rate Blood Pressure 165/98 164/93 164/93 Blood Pressure [Left] O2 Sat by Pulse 98 97 97 Oximetry 04/03/21 04/03/21 04/03/21 16:31 16:45 17:01 Temperature Pulse Rate 83 Respiratory 15 16 14 Rate Blood Pressure 160/95 160/95 146/89 Blood Pressure [Left] O2 Sat by Pulse 95 98 96 Oximetry 04/03/21 04/03/21 04/03/21 17:15 17:31 17:45 Temperature Pulse Rate Respiratory 13 12 13 Rate Blood Pressure 146/89 148/91 148/91 Blood Pressure [Left] O2 Sat by Pulse 97 97 98 Oximetry 04/03/21 04/03/21 04/03/21 18:01 18:15 18:31 Temperature Pulse Rate Respiratory 13 15 13 Rate Blood Pressure 152/90 152/90 155/93 Blood Pressure [Left] O2 Sat by Pulse 98 97 98 Oximetry 04/03/21 19:06 Temperature Pulse Rate 76 Respiratory Rate Blood Pressure Blood Pressure 147/87 [Left] O2 Sat by Pulse Oximetry PAPITO score - Papito Score Age > 65: (0) No Aspirin use within the Past 7 Days: (0) No 3 or more CAD Risk Factors: (0) No 2 or more Angina events in past 24 hrs: (1) Yes Known CAD with more than 50% Stenosis: (0) No Elevated Cardiac Markers: (0) No ST Deviation Greater than 0.5mm: (0) No PAPITO Score: 1 ED Medical Decision Making - Lab Data Result diagrams: 04/03/21 14:33 04/03/21 14:33 Lab Results 04/03/21 04/03/21 04/03/21 Range/Units 14:33 14:33 14:33 WBC 7.1 (4.5-11.0) K/mm3 RBC 3.60 L (3.65-5.03) M/mm3 Hgb 11.7 L (11.8-15.2) gm/dl Hct 34.2 L (35.5-45.6) % MCV 95 H (84-94) fl MCH 33 H (28-32) pg MCHC 34 (32-34) % RDW 13.7 (13.2-15.2) % Plt Count 114 L (140-440) K/mm3 Lymph % (Auto) 19.4 (13.4-35.0) % [place] % (Auto) 7.5 H (0.0-7.3) % Eos % (Auto) 1.9 (0.0-4.3) % Baso % (Auto) 0.5 (0.0-1.8) % Lymph # (Auto) 1.4 (1.2-5.4) K/mm3 [place] # (Auto) 0.5 (0.0-0.8) K/mm3 Eos # (Auto) 0.1 (0.0-0.4) K/mm3 Baso # (Auto) 0.0 (0.0-0.1) K/mm3 Seg Neutrophils % 70.7 H (40.0-70.0) % Seg Neutrophils # 5.0 (1.8-7.7) K/mm3 PT (12.2-14.9) Sec. INR (0.87-1.13) Sodium 139 (137-145) mmol/L Potassium 4.1 (3.6-5.0) mmol/L Chloride 105.4 (98-107) mmol/L Carbon Dioxide 13 L (22-30) mmol/L Anion Gap 25 mmol/L BUN 15 (9-20) mg/dL Creatinine 1.0 (0.8-1.3) mg/dL Estimated GFR > 60 ml/min BUN/Creatinine Ratio 15 % Glucose 53 L (75-100) mg/dL POC Glucose (70-105) mg/dL Calcium 7.1 L (8.4-10.2) mg/dL Total Bilirubin 0.20 (0.1-1.2) mg/dL AST 15 (5-40) units/L ALT 10 (7-56) units/L Alkaline Phosphatase 73 (35-129) units/L Troponin T < 0.010 (0.00-0.029) ng/mL Total Protein 6.3 (6.3-8.2) g/dL Albumin 3.2 L (3.9-5) g/dL Albumin/Globulin Ratio 1.0 % Urine Opiates Screen Urine Methadone Screen Ur Barbiturates Screen Ur Phencyclidine Scrn Ur Amphetamines Screen U Benzodiazepines Scrn Urine Cocaine Screen U Marijuana (THC) Screen Drugs of Abuse Note Plasma/Serum Alcohol < 0.01 (0-0.07) % 04/03/21 04/03/21 04/03/21 Range/Units 14:33 16:21 16:41 WBC (4.5-11.0) K/mm3 RBC (3.65-5.03) M/mm3 Hgb (11.8-15.2) gm/dl Hct (35.5-45.6) % MCV (84-94) fl MCH (28-32) pg MCHC (32-34) % RDW (13.2-15.2) % Plt Count (140-440) K/mm3 Lymph % (Auto) (13.4-35.0) % [place] % (Auto) (0.0-7.3) % Eos % (Auto) (0.0-4.3) % Baso % (Auto) (0.0-1.8) % Lymph # (Auto) (1.2-5.4) K/mm3 [place] # (Auto) (0.0-0.8) K/mm3 Eos # (Auto) (0.0-0.4) K/mm3 Baso # (Auto) (0.0-0.1) K/mm3 Seg Neutrophils % (40.0-70.0) % Seg Neutrophils # (1.8-7.7) K/mm3 PT 14.5 (12.2-14.9) Sec. INR 1.07 (0.87-1.13) Sodium (137-145) mmol/L Potassium (3.6-5.0) mmol/L Chloride (98-107) mmol/L Carbon Dioxide (22-30) mmol/L Anion Gap mmol/L BUN (9-20) mg/dL Creatinine (0.8-1.3) mg/dL Estimated GFR ml/min BUN/Creatinine Ratio % Glucose (75-100) mg/dL POC Glucose 85 (70-105) mg/dL Calcium (8.4-10.2) mg/dL Total Bilirubin (0.1-1.2) mg/dL AST (5-40) units/L ALT (7-56) units/L Alkaline Phosphatase (35-129) units/L Troponin T < 0.010 (0.00-0.029) ng/mL Total Protein (6.3-8.2) g/dL Albumin (3.9-5) g/dL Albumin/Globulin Ratio % Urine Opiates Screen Urine Methadone Screen Ur Barbiturates Screen Ur Phencyclidine Scrn Ur Amphetamines Screen U Benzodiazepines Scrn Urine Cocaine Screen U Marijuana (THC) Screen Drugs of Abuse Note Plasma/Serum Alcohol (0-0.07) % 04/03/21 Range/Units 17:36 WBC (4.5-11.0) K/mm3 RBC (3.65-5.03) M/mm3 Hgb (11.8-15.2) gm/dl Hct (35.5-45.6) % MCV (84-94) fl MCH (28-32) pg MCHC (32-34) % RDW (13.2-15.2) % Plt Count (140-440) K/mm3 Lymph % (Auto) (13.4-35.0) % [place] % (Auto) (0.0-7.3) % Eos % (Auto) (0.0-4.3) % Baso % (Auto) (0.0-1.8) % Lymph # (Auto) (1.2-5.4) K/mm3 [place] # (Auto) (0.0-0.8) K/mm3 Eos # (Auto) (0.0-0.4) K/mm3 Baso # (Auto) (0.0-0.1) K/mm3 Seg Neutrophils % (40.0-70.0) % Seg Neutrophils # (1.8-7.7) K/mm3 PT (12.2-14.9) Sec. INR (0.87-1.13) Sodium (137-145) mmol/L Potassium (3.6-5.0) mmol/L Chloride (98-107) mmol/L Carbon Dioxide (22-30) mmol/L Anion Gap mmol/L BUN (9-20) mg/dL Creatinine (0.8-1.3) mg/dL Estimated GFR ml/min BUN/Creatinine Ratio % Glucose (75-100) mg/dL POC Glucose (70-105) mg/dL Calcium (8.4-10.2) mg/dL Total Bilirubin (0.1-1.2) mg/dL AST (5-40) units/L ALT (7-56) units/L Alkaline Phosphatase (35-129) units/L Troponin T (0.00-0.029) ng/mL Total Protein (6.3-8.2) g/dL Albumin (3.9-5) g/dL Albumin/Globulin Ratio % Urine Opiates Screen Negative Urine Methadone Screen Negative Ur Barbiturates Screen Negative Ur Phencyclidine Scrn Negative Ur Amphetamines Screen Negative U Benzodiazepines Scrn Negative Urine Cocaine Screen Positive U Marijuana (THC) Screen Positive Drugs of Abuse Note Disclamer Plasma/Serum Alcohol (0-0.07) % - EKG Data -: EKG Interpreted by Me EKG shows normal: sinus rhythm (PACs), axis, intervals, QRS complexes, ST-T waves Rate: tachycardia (103 bpm) - EKG Data When compared to previous EKG there are: no significant change Interpretation: normal EKG (11/06/20) - Radiology Data Radiology results: image reviewed interpreted by me: Chest x-ray does not show any acute process. There are no pleural effusions, obvious pneumonia and there is no pneumothorax. No widened mediastinum. - Medical Decision Making This patient presents to the emergency department with a complaint of some left- sided chest pain that started earlier this morning. Heart and lung sounds are normal to auscultation. The patient does not appear in any respiratory or acute distress. There is reproducible left-sided chest wall tenderness to palpation without crepitus or deformity. EKG does not have any morphology consistent with ST elevation myocardial infarction or any arrhythmia. Chest x-ray does not show any pneumonia, pleural effusions, pneumothorax, widened mediastinum, or any other acute process. The patient's labs have been unremarkable including CBC, metabolic panel, and negative troponins x2. Urine drug screen is positive for cocaine and marijuana. The patient does not appear acutely intoxicated. Vital signs reassuring throughout his ED course, including being afebrile. Patient was given a DuoNeb breathing treatment and a dose of Toradol, as well as some IV fluid resuscitation. The patient is seen sleeping and/or resting comfortably multiple times during his ED course. He is low on the heart and PAPITO score. The patient is low on the Wells score criteria. For all these reasons the patient appears safe for discharge home at this time. His contact information has been sent over to the [facility], and someone from their office should be contacting him shortly for close outpatient follow-up as per our hospitals low risk chest pain protocol. We discussed cessation of any further illicit drug use. He will return to the closest emergency department with any worsening of his symptoms or with any acute distress. Critical Care Time: No Critical care attestation.: If time is entered above; I have spent that time in minutes in the direct care of this critically ill patient, excluding procedure time. ED Disposition Clinical Impression: Cocaine use, Chest wall pain, Marijuana use Chest pain Qualifiers: Chest pain type: unspecified Qualified Code(s): R07.9 - Chest pain, unspecified Hypertension Qualifiers: Hypertension type: primary hypertension Qualified Code(s): I10 - Essential (primary) hypertension Disposition: TO HOME OR SELFCARE Is pt being admited?: No Condition: Stable Instructions: Stimulant Use Disorder-Cocaine, Cannabis Use Disorder, Nonspecific Chest Pain, Adult, Chest Wall Pain, Hypertension, Adult, Hypertension (ED) Additional Instructions: Please follow-up with a primary care physician in the next few days. Please avoid any further illicit drug use. I am sending your contact formation number to the [place] [facility] [facility], and someone from their office should be contacting you shortly for close outpatient follow-up. Just in case I am giving you a referral for one of their regional sales engineer, Dr. Sung. Return to the emergency department with any worsening of your symptoms, new or concerning symptoms not addressed during this current emergency department visit, or with any acute distress. Prescriptions: Ibuprofen [Motrin 600 MG tab] 600 mg PO Q8H PRN #20 tablet PRN Reason: Pain Referrals: ALEJANDRO SUNG MD [Staff Physician] - 2-3 Days Time of Disposition: 18:18
--- NOTE | 2021-04-03 14:22 | XRay Report ---
CHEST 1 VIEW 04/03/2021 2:11 PM INDICATION / CLINICAL INFORMATION: Chest pain. COMPARISON: 11/06/20. FINDINGS: SUPPORT DEVICES: None. HEART / MEDIASTINUM: The heart size and pulmonary vasculature are normal. LUNGS / PLEURA: There are calcified right infrahilar lymph nodes. Bullous changes in both lung apices , greater on the left than the right, are stable. Patchy parenchymal disease in the left lung base in the retrocardiac region is a new finding. The lungs are otherwise clear. No pneumothorax. ADDITIONAL FINDINGS: No significant additional findings. IMPRESSION: Mild patchy atelectasis or pneumonia in the left lower lobe. Signer Name: Jesse Ladd MD Signed: 04/03/2021 2:17 PM Workstation Name: [id number]
[2021-04-03 14:52] LABS: Basophils % (Auto) 0.5 % (0.0-1.8); Eosinophils # (Auto) 0.1 K/mm3 (0.0-0.4); Eosinophils % (Auto) 1.9 % (0.0-4.3); Hematocrit 34.2 % (35.5-45.6); Hemoglobin 11.7 gm/dl (11.8-15.2); Lymphocytes # (Auto) 1.4 K/mm3 (1.2-5.4); Lymphocytes % (Auto) 19.4 % (13.4-35.0); Mean Corpuscular HGB Conc 34 % (32-34); Mean Corpuscular Volume 95 fl (84-94); Monocytes # (Auto) 0.5 K/mm3 (0.0-0.8); Monocytes % (Auto) 7.5 % (0.0-7.3); Platelet Count 114 K/mm3 (140-440); Red Cell Distribution Width 13.7 % (13.2-15.2)
[2021-04-03 15:03] LABS: INR 1.07 (0.87-1.13)
[2021-04-03 15:10] LABS: Alanine Aminotransferase 10 units/L (7-56); Albumin 3.2 g/dL (3.9-5); BUN/Creatinine Ratio 15; Blood Urea Nitrogen 15 mg/dL (9-20); Calcium 7.1 mg/dL (8.4-10.2); Hemolysis Index 6
[2021-04-03] MEDS ORDERED: KETOROLAC 30 MG/1 ML INJ IV ONE (15:10)
[2021-04-03] MEDS ORDERED: SODIUM CHLORIDE 0.9% 1000 ML 1,000 ML IV ONE (15:40)
[2021-04-03] MEDS ORDERED: DEXTROSE 50% IN WATER (25GM) 50 ML SYRINGE IV ONE (15:40)
[2021-04-03 17:56] LABS: Amphetamine Screen,Urine Negative; Benzodiazepines Screen,Urine Negative; Methadone Screen,Urine Negative; Opiate Screen,Urine Negative
[2021-04-03 18:27] LABS: Cannabinoid Screen,Urine Positive; Cocaine Screen,Urine Positive
[2021-04-03 19:07] VITALS: BP 147/87
--- NOTE | 2021-04-04 10:30 | Electrocardiograph Report ---
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
== END 2021-04-03 19:06 | disposition home or self-care (01) ==
LOC: ED 13:40
DX: R07.89 Other chest pain (principal); F14.10 Cocaine abuse, uncomplicated; F12.10 Cannabis abuse, uncomplicated; I10 Essential (primary) hypertension; J44.9 Chronic obstructive pulmonary disease, unspecified; F17.200 Nicotine dependence, unspecified, uncomplicated
CPT/HCPCS: 36415; 71045; 80053; 80307; 82962; 84484; 85025; 85610; 93005; 96361; 96374; 99284; J1885; J7030; 80320; G0480; J1953

== ENCOUNTER 2021-11-25 22:07 | Inpatient (IN) | payer MEDICARE ==
--- NOTE | 2021-11-25 22:15 | Consultation ---
History of Present Illness - Reason for Consult Consult date: 11/25/21 - History of Present Illness [facility] Consult Note # Demographics Consult Type: Acute Stroke Level 2 (4.5-24 hrs) Patient Location: Emergency Room First Name: jl Last Name: constantin Date of : 1960 Age: 61 Gender: Male Facility: [facility] Time of Initial Page ( Time): 11/25/2021, 21:58 Time of Return Call ( Time): 11/25/2021, 21:59 # HPI History: 61yo man who had headache, unsteady gait and slurred speech. Last Known Normal: 1300 today Associated Symptoms: gait dyscoordination # Scores Time of exam and NIHSS (): 11/25/2021, 22:12 Level of Consciousness 1a: [0] = Alert; keenly responsive LOC Questions 1b: [0] = Answers both questions correctly LOC Commands 1c: [0] = Performs both tasks correctly Best Gaze 2: [0] = Normal Visual 3: [0] = No visual loss Facial Palsy 4: [0] = Normal symmetrical movements Motor Arm Left 5a: [1] = Drift Motor Arm Right 5b: [0] = No drift Motor Leg Left 6a: [3] = No effort against gravity Motor Leg Right 6b: [0] = No drift Limb Ataxia 7: [0] = Absent Sensory 8: [0] = Normal Best Language 9: [0] = No aphasia Dysarthria 10: [1] = [id number] dysarthria Extinction and Inattention 11: [0] = No abnormality NIHSS Total: 5 # Exam Vitals: vital signs reviewed # Data Head CT: 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 # Assessment Impression: Ischemic Stroke (Acute) # Plan Thrombolytic/Intervention: NOT IV Thrombolysis or IA Intervention candidate Thrombolytic Exclusion: > 4.5 hours Intraarterial Exclusion: clinically consistent with small vessel disease Target Blood Pressure: SBP < 220 Labs: ESR lipid panel Imaging: (urgency: STAT): CT Angiogram Head and CT Angiogram Neck AND call back with results if abnormal Imaging: (urgency: routine): MRI Brain without contrast Diagnostic Test: echo without bubble study Therapy/Evaluation: NPO until swallow evaluation PT/OT evaluation speech/swallow consultation Medication: aspirin 81 mg daily DVT Prophylaxis: SCD chemical DVT prophylaxis Other: LDL < 70 permissive hypertension telemetry monitoring I have discussed my recommendations with the referring provider Disposition: admit Medications and Allergies Allergies Allergy/AdvReac Type Severity Reaction Status Date / Time No Known Allergies Allergy Verified 07/04/20 09:37 Home Medications Medication Instructions Recorded Confirmed Last Taken Type Albuterol Mdi (or & Nicu Only) 2 puff IH QID PRN #8.5 gram 10/29/19 10/27/20 05/08/20 10:01 Rx [ProAir HFA Inhaler] lisinopriL [Zestril TAB] 20 mg PO QDAY #90 tablet 10/29/19 10/27/20 05/08/20 10:01 Rx Albuterol Sulfate [Albuterol 0.63% 0.63 mg IH TID PRN #1 box 05/09/20 10/27/20 Unknown Rx NEBS] Compressor, For Nebulizer [Ebase 1 each MC TID PRN #1 each 05/09/20 10/27/20 Unknown Rx Controller] Ipratropium [Atrovent NEB] 0.5 mg IH Q8HRT PRN #1 box 05/09/20 10/27/20 Unknown Rx Prednisone [predniSONE 10 mg 10 mg PO .TAPER #1 tab.ds.pk 05/09/20 10/27/20 Unknown Rx (6-Day Pack, 21 Tabs)] amLODIPine 10 mg PO DAILY #90 tab 07/04/20 10/27/20 Unknown Rx levoFLOXacin [Levaquin] 750 mg PO QDAY #5 tablet 10/28/20 Unknown Rx Acetaminophen [Non-Aspirin Extra 500 mg PO Q6HR PRN #30 tablet 11/06/20 Unknown Rx Strength] Famotidine [Pepcid] 20 mg PO QDAY #30 tablet 11/06/20 Unknown Rx Jocelynn Root [Jocelynn] 250 mg PO QID PRN #30 capsule 11/06/20 Unknown Rx Metoclopramide [Reglan] 10 mg PO QID PRN #30 tablet 11/06/20 Unknown Rx Promethazine [Phenergan SUPPOS] 50 mg ND Q6H PRN #15 supp.rect 11/06/20 Unknown Rx HYDROcodone/APAP 5-325 [[place] 1 each PO Q6HR PRN #10 tablet 02/09/21 Unknown Rx 5/325] Ondansetron [Zofran Odt] 4 mg PO Q8HR PRN #12 tab.rapdis 02/09/21 Unknown Rx Ibuprofen [Motrin 600 MG tab] 600 mg PO Q8H PRN #20 tablet 04/03/21 Unknown Rx
--- NOTE | 2021-11-25 22:16 | Emergency Department Report ---
ED Neuro Deficit HPI - General Stated Complaint: POSS STROKE Time Seen by Provider: 11/25/21 22:10 Source: patient Mode of arrival: Stretcher Limitations: Physical Limitation, Other (History of mental disability since a) - History of Present Illness Initial Comments: 61-year male with past medical history hypertension, diabetes, cigarette smoking, and marijuana smoker presents to the hospital with stroke symptoms. Patient does report smoking marijuana last night. He was last seen normal by his sister around noon and patient went in his room to sleep at that time. Upon awaking she noticed that his speech was slurred and he was stumbling around while trying to ambulate. She then called EMS to bring him to the hospital - Related Data Home Medications: Previous Rx's Medication Instructions Recorded Last Taken Type Albuterol Mdi (or & Nicu Only) 2 puff IH QID PRN #8.5 gram 10/29/19 05/08/20 10:01 Rx [ProAir HFA Inhaler] lisinopriL [Zestril TAB] 20 mg PO QDAY #90 tablet 10/29/19 05/08/20 10:01 Rx Albuterol Sulfate [Albuterol 0.63% 0.63 mg IH TID PRN #1 box 05/09/20 Unknown Rx NEBS] Compressor, For Nebulizer [Ebase 1 each MC TID PRN #1 each 05/09/20 Unknown Rx Controller] Ipratropium [Atrovent NEB] 0.5 mg IH Q8HRT PRN #1 box 05/09/20 Unknown Rx Prednisone [predniSONE 10 mg 10 mg PO .TAPER #1 tab.ds.pk 05/09/20 Unknown Rx (6-Day Pack, 21 Tabs)] amLODIPine 10 mg PO DAILY #90 tab 07/04/20 Unknown Rx levoFLOXacin [Levaquin] 750 mg PO QDAY #5 tablet 10/28/20 Unknown Rx Acetaminophen [Non-Aspirin Extra 500 mg PO Q6HR PRN #30 tablet 11/06/20 Unknown Rx Strength] Famotidine [Pepcid] 20 mg PO QDAY #30 tablet 11/06/20 Unknown Rx Jocelynn Root [Jocelynn] 250 mg PO QID PRN #30 capsule 11/06/20 Unknown Rx Metoclopramide [Reglan] 10 mg PO QID PRN #30 tablet 11/06/20 Unknown Rx Promethazine [Phenergan SUPPOS] 50 mg [place] Q6H PRN #15 supp.rect 11/06/20 Unknown Rx HYDROcodone/APAP 5-325 [[place] 1 each PO Q6HR PRN #10 tablet 02/09/21 Unknown Rx 5/325] Ondansetron [Zofran Odt] 4 mg PO Q8HR PRN #12 tab.rapdis 02/09/21 Unknown Rx Ibuprofen [Motrin 600 MG tab] 600 mg PO Q8H PRN #20 tablet 04/03/21 Unknown Rx Allergies/Adverse Reactions: Allergies Allergy/AdvReac Type Severity Reaction Status Date / Time No Known Allergies Allergy Verified 07/04/20 09:37 ED Review of Systems ROS: Stated complaint: POSS STROKE Other details as noted in HPI Comment: All other systems reviewed and negative ED Past Medical Hx - Past Medical History Hx Hypertension: Yes Hx Asthma: Yes Hx COPD: Yes - Surgical History Additional Surgical History: suprapubic cath - Social History Smoking Status: Current Every Day Smoker Substance Use Type: Alcohol, Marijuana - Medications Home Medications: Home Medications Medication Instructions Recorded Confirmed Last Taken Type Albuterol Mdi (or & Nicu Only) 2 puff IH QID PRN #8.5 gram 10/29/19 10/27/20 05/08/20 10:01 Rx [ProAir HFA Inhaler] lisinopriL [Zestril TAB] 20 mg PO QDAY #90 tablet 10/29/19 10/27/20 05/08/20 10:01 Rx Albuterol Sulfate [Albuterol 0.63% 0.63 mg IH TID PRN #1 box 05/09/20 10/27/20 Unknown Rx NEBS] Compressor, For Nebulizer [Ebase 1 each MC TID PRN #1 each 05/09/20 10/27/20 Unknown Rx Controller] Ipratropium [Atrovent NEB] 0.5 mg IH Q8HRT PRN #1 box 05/09/20 10/27/20 Unknown Rx Prednisone [predniSONE 10 mg 10 mg PO .TAPER #1 tab.ds.pk 05/09/20 10/27/20 Unknown Rx (6-Day Pack, 21 Tabs)] amLODIPine 10 mg PO DAILY #90 tab 07/04/20 10/27/20 Unknown Rx levoFLOXacin [Levaquin] 750 mg PO QDAY #5 tablet 10/28/20 Unknown Rx Acetaminophen [Non-Aspirin Extra 500 mg PO Q6HR PRN #30 tablet 11/06/20 Unknown Rx Strength] Famotidine [Pepcid] 20 mg PO QDAY #30 tablet 11/06/20 Unknown Rx Jocelynn Root [Jocelynn] 250 mg PO QID PRN #30 capsule 11/06/20 Unknown Rx Metoclopramide [Reglan] 10 mg PO QID PRN #30 tablet 11/06/20 Unknown Rx Promethazine [Phenergan SUPPOS] 50 mg [place] Q6H PRN #15 supp.rect 11/06/20 Unknown Rx HYDROcodone/APAP 5-325 [[place] 1 each PO Q6HR PRN #10 tablet 02/09/21 Unknown Rx 5/325] Ondansetron [Zofran Odt] 4 mg PO Q8HR PRN #12 tab.rapdis 02/09/21 Unknown Rx Ibuprofen [Motrin 600 MG tab] 600 mg PO Q8H PRN #20 tablet 04/03/21 Unknown Rx ED Neuro Physical Exam - General Suspected Stroke: Yes - NIHSS Assessment Interval: Baseline 1a. Level of Consciousness: alert/keenly responsive 1b. LOC Questions: answers both correctly 1c. LOC Commands: performs tasks correctly 2. Best Gaze: normal 3. Visual: no visual loss 4. Facial Palsy: minor paralysis 5b. Motor Arm Right: no drift 5a. Motor Arm Left: some gravity effort 6a. Motor Leg Left: no gravity effort 6b. Motor Leg Right: some gravity effort 7. Limb Ataxia: absent 8. Sensory: normal 9. Best Language: no aphasia 10. Dysarthria: mild/moderate dysarthria 11. Extinction/Inattention: no abnormality Total Score: 9 Stroke Severity: Moderate Stroke - Other Other exam information: General: No acute distress Head: Atraumatic Eyes: normal appearance ENT: Moist mucous membranes Neck: Normal appearance, no midline tenderness Chest: Clear to auscultation bilaterally CV: Regular rate and rhythm Abdomen: Soft, normal bowel sounds, nontender, nondistended, no rebound or guarding Back: Normal inspection Extremity: Normal inspection, full range of motion Neuro: Alert O, left facial droop, left sided weakness Psych: Appropriate behavior Skin: No rash ED Course Vital Signs 11/25/21 22:35 Temperature 98.6 F Pulse Rate 91 H Respiratory 16 Rate Blood Pressure 167/95 [Left] O2 Sat by Pulse 97 Oximetry - Consultations Consultation #1: 11/26/21 Neurology consultation upon ED arrival - Lab Data Result diagrams: 11/25/21 22:43 11/25/21 22:43 Lab Results 11/25/21 11/25/21 11/25/21 Range/Units 22:43 22:43 22:43 WBC 5.2 (4.5-11.0) K/mm3 RBC 4.15 (3.65-5.03) M/mm3 Hgb 13.3 (11.8-15.2) gm/dl Hct 39.6 (35.5-45.6) % MCV 96 H (84-94) fl MCH 32 (28-32) pg MCHC 34 (32-34) % RDW 14.0 (13.2-15.2) % Plt Count 123 L (140-440) K/mm3 Lymph % (Auto) 16.7 (13.4-35.0) % Cotton % (Auto) 7.1 (0.0-7.3) % Eos % (Auto) 3.0 (0.0-4.3) % Baso % (Auto) 1.3 (0.0-1.8) % Lymph # (Auto) 0.9 L (1.2-5.4) K/mm3 Cotton # (Auto) 0.4 (0.0-0.8) K/mm3 Eos # (Auto) 0.2 (0.0-0.4) K/mm3 Baso # (Auto) 0.1 (0.0-0.1) K/mm3 Seg Neutrophils % 71.9 H (40.0-70.0) % Seg Neutrophils # 3.7 (1.8-7.7) K/mm3 PT 13.8 (12.2-14.9) Sec. INR 0.96 (0.87-1.13) APTT 29.6 (24.2-36.6) Sec. Thrombin Time 16.2 (15.1-19.6) Sec. Sodium 140 (137-145) mmol/L Potassium 4.8 (3.6-5.0) mmol/L Chloride 105.6 (98-107) mmol/L Carbon Dioxide 24 (22-30) mmol/L Anion Gap 15 mmol/L BUN 17 (9-20) mg/dL Creatinine 1.0 (0.8-1.3) mg/dL Estimated GFR > 60 ml/min BUN/Creatinine Ratio 17 % Glucose 93 (75-100) mg/dL Calcium 8.8 (8.4-10.2) mg/dL Total Bilirubin 0.30 (0.1-1.2) mg/dL AST 13 (5-40) units/L ALT 10 (7-56) units/L Alkaline Phosphatase 103 (35-129) units/L Total Creatine Kinase 118 (55-170) units/L CK-MB (CK-2) 2.5 (0.0-4.0) ng/mL CK-MB (CK-2) Rel Index 2.1 (0-4) Troponin T < 0.010 (0.00-0.029) ng/mL Total Protein 7.0 (6.3-8.2) g/dL Albumin 4.0 (3.9-5) g/dL Albumin/Globulin Ratio 1.3 % Urine Opiates Screen Urine Methadone Screen Ur Barbiturates Screen Ur Phencyclidine Scrn Ur Amphetamines Screen U Benzodiazepines Scrn Urine Cocaine Screen U Marijuana (THC) Screen Drugs of Abuse Note Plasma/Serum Alcohol (0-0.07) % 11/25/21 11/25/21 Range/Units 22:43 23:18 WBC (4.5-11.0) K/mm3 RBC (3.65-5.03) M/mm3 Hgb (11.8-15.2) gm/dl Hct (35.5-45.6) % MCV (84-94) fl MCH (28-32) pg MCHC (32-34) % RDW (13.2-15.2) % Plt Count (140-440) K/mm3 Lymph % (Auto) (13.4-35.0) % Cotton % (Auto) (0.0-7.3) % Eos % (Auto) (0.0-4.3) % Baso % (Auto) (0.0-1.8) % Lymph # (Auto) (1.2-5.4) K/mm3 Cotton # (Auto) (0.0-0.8) K/mm3 Eos # (Auto) (0.0-0.4) K/mm3 Baso # (Auto) (0.0-0.1) K/mm3 Seg Neutrophils % (40.0-70.0) % Seg Neutrophils # (1.8-7.7) K/mm3 PT (12.2-14.9) Sec. INR (0.87-1.13) APTT (24.2-36.6) Sec. Thrombin Time (15.1-19.6) Sec. Sodium (137-145) mmol/L Potassium (3.6-5.0) mmol/L Chloride (98-107) mmol/L Carbon Dioxide (22-30) mmol/L Anion Gap mmol/L BUN (9-20) mg/dL Creatinine (0.8-1.3) mg/dL Estimated GFR ml/min BUN/Creatinine Ratio % Glucose (75-100) mg/dL Calcium (8.4-10.2) mg/dL Total Bilirubin (0.1-1.2) mg/dL AST (5-40) units/L ALT (7-56) units/L Alkaline Phosphatase (35-129) units/L Total Creatine Kinase (55-170) units/L CK-MB (CK-2) (0.0-4.0) ng/mL CK-MB (CK-2) Rel Index (0-4) Troponin T (0.00-0.029) ng/mL Total Protein (6.3-8.2) g/dL Albumin (3.9-5) g/dL Albumin/Globulin Ratio % Urine Opiates Screen Presumptive negative Urine Methadone Screen Presumptive negative Ur Barbiturates Screen Presumptive negative Ur Phencyclidine Scrn Presumptive negative Ur Amphetamines Screen Presumptive negative U Benzodiazepines Scrn Presumptive negative Urine Cocaine Screen Presumptive positive U Marijuana (THC) Screen Presumptive positive Drugs of Abuse Note Disclamer Plasma/Serum Alcohol < 0.01 (0-0.07) % - EKG Data -: EKG Interpreted by Ca EKG shows normal: sinus rhythm, ST-T waves (No STEMI) Rate: normal (91) - Radiology Data Radiology results: report reviewed CHEST 1 VIEW INDICATION / CLINICAL INFORMATION: stroke. COMPARISON: 04/03/2021 FINDINGS: SUPPORT DEVICES: None. HEART / MEDIASTINUM: There is masslike density in the right paratracheal region concerning for adenopathy. Heart size is normal. LUNGS / PLEURA: There is suggestion of soft tissue mass in the left upper lobe, adjacent to the aortic knob measuring approximately 3 cm. This may represent a pulmonary mass. There is also fullness in the right pulmonary hilum possibly representing adenopathy. Both lungs are emphysematous in appearance. There is significant bullous disease in the left lung apex. Otherwise, no additional pulmonary abnormality noted. No pneumothorax. ADDITIONAL FINDINGS: No significant additional findings. IMPRESSION: 1. There is fullness in the right paratracheal region and right hilum both of which are concerning for the possibility of adenopathy/mass. 2. There is suggestion of pulmonary mass in the left upper lobe adjacent to the aortic knob, worrisome for lung mass. 3. COPD. 4. Chest CT with contrast, if possible, is suggested to evaluate for possible malignancy. CT HEAD WITHOUT CONTRAST INDICATION / CLINICAL INFORMATION: Stroke symptoms. TECHNIQUE: All CT scans at this location are performed using CT dose reduction for Drync by means of automated exposure control. COMPARISON: 07/04/2020 FINDINGS: HEMORRHAGE: None. EXTRA-AXIAL SPACES: Mildly prominent likely related to cortical atrophy. VENTRICULAR SYSTEM: Mildly enlarged likely related to central atrophy. CEREBRAL PARENCHYMA: There are periventricular hypodensities consistent with microvascular ischemic change. No acute territorial infarct. Focal hypoattenuation noted within the right thalamus consistent with chronic encephalomalacia. MIDLINE SHIFT / HERNIATION: None. CEREBELLUM / BRAINSTEM: No significant abnormality. ORBITS: Normal as visualized SOFT TISSUES: No significant abnormality. SKULL: No significant abnormality. PARANASAL SINUSES / MASTOID AIR CELLS: Normal as visualized ADDITIONAL FINDINGS: None. IMPRESSION: 1. No acute intracranial abnormality. 2. Sequela of prior infarct right thalamus. 3. Chronic microvascular ischemic changes. CTA HEAD WITH CONTRAST 11/25/2021 HISTORY: stroke sx. COMPARISON: None. TECHNIQUE: All CT scans at this location are performed using CT dose reduction for Drync by means of automated exposure control.. 3-D/MIP reformats postprocessed. Percentage stenosis is determined by direct quantitative measurements of diseased internal carotid artery diameter compared with normal distal internal carotid artery reference segments or by criteria similar to NASCET where applicable. CONTRAST: 100 ml of Omnipaque 350 FINDINGS: CTA HEAD: Intracranial vertebral arteries: No significant abnormality. Basilar artery: No significant abnormality. Posterior cerebral arteries: No significant abnormality. Intracranial internal carotid arteries: No significant abnormality. Anterior cerebral arteries: No significant abnormality. Middle cerebral arteries: No significant abnormality. Dural venous sinuses:Not optimally opacified. No significant abnormality. Additional findings: None. IMPRESSION: 1. No significant abnormality. CTA NECK WITH CONTRAST 11/25/2021 INDICATION / CLINICAL INFORMATION: stroke sx. No specific symptoms provided COMPARISON: None. TECHNIQUE: Routine CTA of the neck is performed. 3-D/MIP reformats were postprocessed. Percentage stenosis is determined by direct quantitative measurements of diseased internal carotid artery diameter compared with normal distal internal carotid artery reference segments or by criteria similar to NASCET where applicable. All CT scans at this location are performed using CT dose reduction for ALARA by means of automated exposure control. CONTRAST: 100 ml of Omnipaque 350 FINDINGS: Carotid bifurcations: At the left bifurcation, atherosclerotic irregularity is present associated with mild narrowing of approximately 20%. Right bifurcation is unremarkable. Carotid arteries: No significant abnormality. Cervical vertebral arteries: No significant abnormality. Aortic arch: No significant abnormality. There is abnormal soft tissue mass in the upper mediastinum pretracheal region suggestive of abnormal lymph nodes. Abnormal soft tissue mass along the anterior aspect of the left lung. Probable right hilar adenopathy is present. Depending on details of the clinical circumstances, further evaluation with contrast-enhanced CT of the chest is recommended when possible. IMPRESSION: No significant vascular abnormality. Probable mediastinal and hilar abnormality with anterior peripheral pleural mass. - Medical Decision Making 61-year-old male presents with stroke symptoms outside the window for TPA. No signs of large vessel stroke requiring emergent intervention. UDS positive for cocaine. Possible lung mass identified on chest x-ray and CT neck which will need further work-up. Please refer to neurology note for recommendations for fu rther stroke work-up. Case discussed with the hospitalist for admission - Thrombolytic Inclusion/Exclusion Thrombolytic Exclusion Criteria: Symptom Onset > 3 Hours Critical Care Time: Yes Critical care time in (mins) excluding proc time.: 35 Critical care attestation.: If time is entered above; I have spent that time in minutes in the direct care of this critically ill patient, excluding procedure time. Critical Care Time: 35 Minutes of critical care time excluding procedures were used in the care of the patient. I came immediately to the bedside upon patient's arrival. I obtained history from EMS at the bedside. I discussed treatment plan with the nursing team members. Patient required multiple reassessments. Spoke with hospitalist and consultants for collaborative care ED Disposition Clinical Impression: Acute CVA (cerebrovascular accident), Lung mass, Cocaine abuse, Marijuana abuse, Hypertension, Diabetes Disposition: ADMITTED INPATIENT Is pt being admited?: Yes Condition: Stable Instructions: Diabetes Mellitus Type 2 in Adults (ED), Hypertension (ED) Time of Disposition: 00:40
--- NOTE | 2021-11-25 22:38 | Cat Scan Report ---
CT HEAD WITHOUT CONTRAST INDICATION / CLINICAL INFORMATION: Stroke symptoms. TECHNIQUE: All CT scans at this location are performed using CT dose reduction for ALARA by means of automated exposure control. COMPARISON: 07/04/2020 FINDINGS: HEMORRHAGE: None. EXTRA-AXIAL SPACES: Mildly prominent likely related to cortical atrophy. VENTRICULAR SYSTEM: Mildly enlarged likely related to central atrophy. CEREBRAL PARENCHYMA: There are periventricular hypodensities consistent with microvascular ischemic c hange. No acute territorial infarct. Focal hypoattenuation noted within the right thalamus consistent with chronic encephalomalacia. MIDLINE SHIFT / HERNIATION: None. CEREBELLUM / BRAINSTEM: No significant abnormality. ORBITS: Normal as visualized SOFT TISSUES: No significant abnormality. SKULL: No significant abnormality. PARANASAL SINUSES / MASTOID AIR CELLS: Normal as visualized ADDITIONAL FINDINGS: None. IMPRESSION: 1. No acute intracranial abnormality. 2. Sequela of prior infarct right thalamus. 3. Chronic microvascular ischemic changes. Signer Name: Fili Dejesus DO Signed: 11/25/2021 10:33 PM Workstation Name: [id number]
--- NOTE | 2021-11-25 22:50 | XRay Report ---
CHEST 1 VIEW INDICATION / CLINICAL INFORMATION: stroke. COMPARISON: 04/03/2021 FINDINGS: SUPPORT DEVICES: None. HEART / MEDIASTINUM: There is masslike density in the right paratracheal region concerning for adenop athy. Heart size is normal. LUNGS / PLEURA: There is suggestion of soft tissue mass in the left upper lobe, adjacent to the aorti c knob measuring approximately 3 cm. This may represent a pulmonary mass. There is also fullness in t he right pulmonary hilum possibly representing adenopathy. Both lungs are emphysematous in appearance . There is significant bullous disease in the left lung apex. Otherwise, no additional pulmonary abno rmality noted. No pneumothorax. ADDITIONAL FINDINGS: No significant additional findings. IMPRESSION: 1. There is fullness in the right paratracheal region and right hilum both of which are concerning fo r the possibility of adenopathy/mass. 2. There is suggestion of pulmonary mass in the left upper lobe adjacent to the aortic knob, worrisom e for lung mass. 3. COPD. 4. Chest CT with contrast, if possible, is suggested to evaluate for possible malignancy. Signer Name: Marsha Khan MD Signed: 11/25/2021 10:46 PM Workstation Name: [id number]
--- NOTE | 2021-11-25 23:03 | Cat Scan Report ---
CTA NECK WITH CONTRAST 11/25/2021 INDICATION / CLINICAL INFORMATION: stroke sx. No specific symptoms provided COMPARISON: None. TECHNIQUE: Routine CTA of the neck is performed. 3-D/MIP reformats were postprocessed. Percentage st enosis is determined by direct quantitative measurements of diseased internal carotid artery diameter compared with normal distal internal carotid artery reference segments or by criteria similar to SISSY CET where applicable. All CT scans at this location are performed using CT dose reduction for ALARA b y means of automated exposure control. CONTRAST: 100 ml of Omnipaque 350 FINDINGS: Carotid bifurcations: At the left bifurcation, atherosclerotic irregularity is present associated wit h mild narrowing of approximately 20%. Right bifurcation is unremarkable. Carotid arteries: No significant abnormality. Cervical vertebral arteries: No significant abnormality. Aortic arch: No significant abnormality. There is abnormal soft tissue mass in the upper mediastinum pretracheal region suggestive of abnormal lymph nodes. Abnormal soft tissue mass along the anterior aspect of the left lung. Probable right hi lar adenopathy is present. Depending on details of the clinical circumstances, further evaluation wit h contrast-enhanced CT of the chest is recommended when possible. IMPRESSION: No significant vascular abnormality. Probable mediastinal and hilar abnormality with anterior peripheral pleural mass. Signer Name: Telly Anne MD Signed: 11/25/2021 10:59 PM Workstation Name: [id number]
--- NOTE | 2021-11-25 23:06 | Cat Scan Report ---
CTA HEAD WITH CONTRAST 11/25/2021 HISTORY: stroke sx. COMPARISON: None. TECHNIQUE: All CT scans at this location are performed using CT dose reduction for ALARA by means of automated exposure control.. 3-D/MIP reformats postprocessed. Percentage stenosis is determined by d irect quantitative measurements of diseased internal carotid artery diameter compared with normal dis jose internal carotid artery reference segments or by criteria similar to NASCET where applicable. CONTRAST: 100 ml of Omnipaque 350 FINDINGS: CTA HEAD: Intracranial vertebral arteries: No significant abnormality. Basilar artery: No significant abnormality. Posterior cerebral arteries: No significant abnormality. Intracranial internal carotid arteries: No significant abnormality. Anterior cerebral arteries: No significant abnormality. Middle cerebral arteries: No significant abnormality. Dural venous sinuses:Not optimally opacified. No significant abnormality. Additional findings: None. IMPRESSION: 1. No significant abnormality. Signer Name: Telly Anne MD Signed: 11/25/2021 11:01 PM Workstation Name: [id number]
[2021-11-25 23:28] LABS: INR 0.96 (0.87-1.13)
[2021-11-25 23:29] LABS: Partial Thromboplastin Time 29.6 Sec. (24.2-36.6); Thrombin Time 16.2 Sec. (15.1-19.6)
[2021-11-25 23:34] LABS: Basophils # (Auto) 0.1 K/mm3 (0.0-0.1); Basophils % (Auto) 1.3 % (0.0-1.8); Eosinophils # (Auto) 0.2 K/mm3 (0.0-0.4); Hematocrit 39.6 % (35.5-45.6); Hemoglobin 13.3 gm/dl (11.8-15.2); Lymphocytes # (Auto) 0.9 K/mm3 (1.2-5.4); Lymphocytes % (Auto) 16.7 % (13.4-35.0); Mean Corpuscular HGB Conc 34 % (32-34); Mean Corpuscular Volume 96 fl (84-94); Monocytes # (Auto) 0.4 K/mm3 (0.0-0.8); Monocytes % (Auto) 7.1 % (0.0-7.3); Platelet Count 123 K/mm3 (140-440); Red Blood Count 4.15 M/mm3 (3.65-5.03)
[2021-11-25 23:35] LABS: Creatine Kinase MB 2.5 ng/mL (0.0-4.0)
[2021-11-25 23:39] LABS: Alanine Aminotransferase 10 units/L (7-56); BUN/Creatinine Ratio 17; Blood Urea Nitrogen 17 mg/dL (9-20); Calcium 8.8 mg/dL (8.4-10.2); Hemolysis Index 6
[2021-11-25 23:47] LABS: Amphetamine Screen,Urine PRESUMPTIVE NEGATIVE; Benzodiazepines Screen,Urine PRESUMPTIVE NEGATIVE; Cannabinoid Screen,Urine PRESUMPTIVE POSITIVE; Cocaine Screen,Urine PRESUMPTIVE POSITIVE; Methadone Screen,Urine PRESUMPTIVE NEGATIVE; Opiate Screen,Urine PRESUMPTIVE NEGATIVE
[2021-11-26] MEDS ORDERED: ONDANSETRON 4 MG/2 ML INJ IV PRN (00:50)
[2021-11-26] MEDS ORDERED: MORPHINE 2 MG/1 ML INJ IV PRN (00:50)
[2021-11-26] MEDS ORDERED: PROMETHAZINE 25 MG RECT SUPP PR PRN (00:50)
[2021-11-26] MEDS ORDERED: DEXTROSE 50% IN WATER (25GM) 50 ML SYRINGE IV PRN (00:50)
[2021-11-26] MEDS ORDERED: MORPHINE 4 MG/1 ML INJ IV PRN ×2 (00:50)
[2021-11-26] MEDS ORDERED: MAGNESIUM HYDROXIDE (MOM) ORAL LIQD UDC PO PRN ×2 (00:50)
[2021-11-26] MEDS ORDERED: METOCLOPRAMIDE 10 MG TAB PO PRN (00:50)
[2021-11-26] MEDS ORDERED: ACETAMINOPHEN 325 MG TAB PO PRN (00:50)
--- NOTE | 2021-11-26 01:10 | History and Physical Report ---
History of Present Illness Date of examination: 11/26/21 Date of admission: 11/26/2021 Chief complaint: Unsteady gait Slurred speech History of present illness: 61-year-old -[place] male with known history of hypertension, diabetes mellitus, tobacco and marijuana abuse presenting to the emergency room today via EMS with complaints of headache, unsteady gait and slurred speech. Last well-known time was about 12 noon today when he was last seen by his siste r. Patient had gone to his room to sleep at that time but later woke up with slurred speech and having unsteady gait. Patient admits to using marijuana last night. There has been no history of dizz iness and no diaphoresis. No fever or chills, no chest pain or shortness of breath, no nausea vomiting and no abdominal pain. Work-up in the emergency room today, chest x-ray was concerning for right paratracheal region and right hilum with adenopathy/mass. There is suggestion of a pulmonary mass in the left upper lobe adjacent to the aortic knob. CT of the head shows sequela of prior infarct in the right thalamus, chronic microvascular ischemic changes. CTA of the head shows no acute abnormality. CTA of the neck shows no significant abnormality. Probable mediastinal and hilar abnormality with anterior peripheral pleural mass. UDS was positive for marijuana and cocaine. Patient was evaluated by tele-neurology and found her not to be a TPA candidate. He will be worked up for possible CVA. Past History Past Medical History: COPD, diabetes, hypertension, other (Asthma) Past Surgical History: Other (Suprapubic catheter) Social history: smoking (Current everyday smoker), alcohol abuse, other (Uses marijuana) Family history: no significant family history Medications and Allergies Allergies Allergy/AdvReac Type Severity Reaction Status Date / Time No Known Allergies Allergy Verified 07/04/20 09:37 Home Medications Medication Instructions Recorded Confirmed Last Taken Type Albuterol Mdi (or & Nicu Only) 2 puff IH QID PRN #8.5 gram 10/29/19 10/27/20 05/08/20 10:01 Rx [ProAir HFA Inhaler] lisinopriL [Zestril TAB] 20 mg PO QDAY #90 tablet 10/29/19 10/27/20 05/08/20 10:01 Rx Albuterol Sulfate [Albuterol 0.63% 0.63 mg IH TID PRN #1 box 05/09/20 10/27/20 Unknown Rx NEBS] Compressor, For Nebulizer [Ebase 1 each MC TID PRN #1 each 05/09/20 10/27/20 Unknown Rx Controller] Ipratropium [Atrovent NEB] 0.5 mg IH Q8HRT PRN #1 box 05/09/20 10/27/20 Unknown Rx Prednisone [predniSONE 10 mg 10 mg PO .TAPER #1 tab.ds.pk 05/09/20 10/27/20 Unknown Rx (6-Day Pack, 21 Tabs)] amLODIPine 10 mg PO DAILY #90 tab 07/04/20 10/27/20 Unknown Rx levoFLOXacin [Levaquin] 750 mg PO QDAY #5 tablet 10/28/20 Unknown Rx Acetaminophen [Non-Aspirin Extra 500 mg PO Q6HR PRN #30 tablet 11/06/20 Unknown Rx Strength] Famotidine [Pepcid] 20 mg PO QDAY #30 tablet 11/06/20 Unknown Rx Jocelynn Root [Jocelynn] 250 mg PO QID PRN #30 capsule 11/06/20 Unknown Rx Metoclopramide [Reglan] 10 mg PO QID PRN #30 tablet 11/06/20 Unknown Rx Promethazine [Phenergan SUPPOS] 50 mg HI Q6H PRN #15 supp.rect 11/06/20 Unknown Rx HYDROcodone/APAP 5-325 [[place] 1 each PO Q6HR PRN #10 tablet 02/09/21 Unknown Rx 5/325] Ondansetron [Zofran Odt] 4 mg PO Q8HR PRN #12 tab.rapdis 02/09/21 Unknown Rx Ibuprofen [Motrin 600 MG tab] 600 mg PO Q8H PRN #20 tablet 04/03/21 Unknown Rx Active Meds: Active Medications Acetaminophen (Acetaminophen 325 Mg Tab) 650 mg PO Q4H PRN PRN Reason: Pain MILD(1-3)/Fever >100.5/TAPIA Acetaminophen (Acetaminophen 325 Mg Tab) 650 mg PO Q4H PRN PRN Reason: Pain, Mild (1-3) Aspirin (Aspirin 325 Mg Tab) 325 mg PO QDAY BLACK Atorvastatin Calcium (Atorvastatin 40 Mg Tab) 40 mg PO QHS BLACK Bisacodyl (Bisacodyl 10 Mg Rect Supp) 10 mg HI QDAY PRN PRN Reason: Constipation Dextrose (Dextrose 50% In Water (25gm) 50 Ml Syringe) 50 ml IV Q30MIN PRN; Protocol PRN Reason: Hypoglycemia Dextrose (Dextrose 50% In Water (25gm) 50 Ml Syringe) 50 ml IV Q30MIN PRN; Protocol PRN Reason: Hypoglycemia Insulin Human Lispro (Insulin Lispro 100 Unit/Ml) 0 unit SUB-Q ACHS BLACK; Protocol Magnesium Hydroxide (Magnesium Hydroxide (Mom) Oral Liqd Udc) 30 ml PO Q4H PRN PRN Reason: Constipation Magnesium Hydroxide (Magnesium Hydroxide (Mom) Oral Liqd Udc) 30 ml PO Q4H PRN PRN Reason: Constipation Metoclopramide HCl (Metoclopramide 10 Mg Tab) 10 mg PO Q6H PRN PRN Reason: Nausea And Vomiting Morphine Sulfate (Morphine 2 Mg/1 Ml Inj) 2 mg IV Q4H PRN PRN Reason: Pain, Moderate (4-6) Morphine Sulfate (Morphine 4 Mg/1 Ml Inj) 4 mg IV Q4H PRN PRN Reason: Pain , Severe (7-10) Morphine Sulfate (Morphine 2 Mg/1 Ml Inj) 2 mg IV Q4H PRN PRN Reason: Pain, Moderate (4-6) Morphine Sulfate (Morphine 4 Mg/1 Ml Inj) 4 mg IV Q4H PRN PRN Reason: Pain , Severe (7-10) Ondansetron HCl (Ondansetron 4 Mg/2 Ml Inj) 4 mg IV Q8H PRN PRN Reason: Nausea And Vomiting Ondansetron HCl (Ondansetron 4 Mg/2 Ml Inj) 4 mg IV Q8H PRN PRN Reason: Nausea And Vomiting Promethazine HCl (Promethazine 25 Mg Rect Supp) 25 mg HI Q6H PRN PRN Reason: Nausea And Vomiting Sodium Chloride (Sodium Chloride 0.9% 10 Ml Flush Syringe) 10 ml IV BID BLACK Sodium Chloride (Sodium Chloride 0.9% 10 Ml Flush Syringe) 10 ml IV PRN PRN PRN Reason: LINE FLUSH Sodium Chloride (Sodium Chloride 0.9% 10 Ml Flush Syringe) 10 ml INJ PRN PRN PRN Reason: LINE FLUSH Review of Systems Constitutional: no fever, no chills Ears, nose, mouth and throat: no nasal congestion, no sore throat Cardiovascular: no chest pain, no palpitations Gastrointestinal: no abdominal pain, no nausea, no vomiting, no diarrhea Genitourinary Male: no dysuria, no hematuria, no nocturia Musculoskeletal: no neck pain, no low back pain Integumentary: no rash, no pruritis Neurological: change in speech, gait dysfunction, no headaches, no confusion Psychiatric: no anxiety, no depression Endocrine: no polyphagia, no polydipsia, no polyuria, no nocturia Exam - Constitutional Vitals: Temp Pulse Resp BP Pulse Ox 98.6 F 93 H 18 158/89 97 11/25/21 22:35 11/25/21 23:30 11/26/21 00:30 11/26/21 00:30 11/26/21 00:30 General appearance: Present: no acute distress, well-nourished - EENT Eyes: Present: PERRL, EOM intact. Absent: scleral icterus ENT: hearing intact, clear oral mucosa, dentition normal - Neck Neck: Present: supple, normal ROM - Respiratory Respiratory effort: normal Respiratory: bilateral: CTA - Cardiovascular Rhythm: regular Heart Sounds: Present: S1 & S2. Absent: gallop, systolic murmur, diastolic murmur, rub, click - Extremities Extremities: no ischemia, pulses intact, pulses symmetrical, No edema, normal temperature, normal color Peripheral Pulses: within normal limits - Abdominal General gastrointestinal: Present: soft, non-tender, non-distended, normal bowel sounds. Absent: mass - Integumentary Integumentary: Present: clear, warm, dry - Musculoskeletal Musculoskeletal: left sided weakness - Psychiatric Psychiatric: appropriate mood/affect, intact judgment & insight, memory intact, cooperative - Neurologic Neurologic: CNII-XII intact, focal deficits (Mild facial asymmetry, slurred speech), moves all extremities (Left-sided weakness) HEART Score - HEART Score Troponin: Troponin T < 0.010 ng/mL (0.00-0.029) 11/25/21 22:43 Results - Labs CBC & Chem 7: 11/25/21 22:43 11/25/21 22:43 Labs: Abnormal lab results 11/25/21 Range/Units 22:43 MCV 96 H (84-94) fl Plt Count 123 L (140-440) K/mm3 Lymph # (Auto) 0.9 L (1.2-5.4) K/mm3 Seg Neutrophils % 71.9 H (40.0-70.0) % Assessment and Plan - Patient Problems (1) Acute CVA (cerebrovascular accident) Status: Acute Plan to address problem: Patient admitted will monitor neurological status. We will start patient on daily aspirin and statin. We will schedule patient for MRI, carotid Doppler and echocardiogram. We will request neurology evaluation. (2) Cocaine abuse Status: Acute Plan to address problem: Patient counseled against cocaine abuse. (3) Diabetes Status: Acute Plan to address problem: Patient placed on sliding scale insulin. We will monitor Accu-Cheks. (4) Hypertension Status: Acute Plan to address problem: We will resume routine home medications and monitor vital signs closely. (5) Lung mass Status: Acute Plan to address problem: Probable lung mass on the chest x-ray. Recommendations to follow-up with CT chest with contrast. (6) DVT prophylaxis Status: Acute Plan to address problem: Placed on subcutaneous heparin. (7) Full code status Status: Acute Plan to address problem: Patient is full code.
[2021-11-26] MEDS ORDERED: DEXTROSE 10% *Hypoglycemia IV PRN (01:11)
[2021-11-26] MEDS: hydrALAZINE 20 MG/1 ML INJ IV PRN ×2 (03:09→09:26)
[2021-11-26] MEDS: HEPARIN 5,000 UNIT/1 ML VIAL SUB-Q SCH ×3 (07:05→21:07)
[2021-11-26] MEDS: ASPIRIN 325 MG TAB PO SCH (09:26)
[2021-11-26] MEDS: INSULIN LISPRO 100 UNIT/ML SUB-Q SCH ×4 (09:27→21:09)
--- NOTE | 2021-11-26 11:03 | Progress Note ---
Assessment and Plan Assessment and plan: 61-year-old -[place] male with known history of hypertension, diabetes mellitus, tobacco and marijuana abuse presenting to the emergency room via EMS with complaints of headache, unsteady gait and slurred speech. Chest x-ray was concerning for right paratracheal and right hilar adenopathy/mass. There was suggestion of a pulmonary mass in the left upper lobe adjacent to the aortic knob. CT of the head shows sequela of prior infarct in the right thalamus, chronic microvascular ischemic changes. CTA of the head showed no acute abnormality. CTA of the neck showed no significant abnormality. UDS was positive for marijuana and cocaine. Patient was evaluated by tele-neurology and found him not to be a TPA candidate. CVA Cocaine Diabetes mellitus type 2 Hypertension Lung mass 11/26/2021. Follow-up echocardiogram and MRI brain. Await neurology consultation. Consult pulmonary for further evaluation History Interval history: No new issues overnight Hospitalist Physical - Constitutional Vitals: Temp Pulse Resp BP Pulse Ox 98.3 F 85 16 177/98 97 11/26/21 07:27 11/26/21 09:26 11/26/21 07:27 11/26/21 09:26 11/26/21 07:27 General appearance: Present: no acute distress, well-nourished - EENT Eyes: Present: PERRL, EOM intact ENT: hearing intact, clear oral mucosa, dentition normal - Neck Neck: Present: supple, normal ROM - Respiratory Respiratory effort: normal Respiratory: bilateral: CTA - Cardiovascular Rhythm: regular Heart Sounds: Present: S1 & S2. Absent: gallop, rub - Extremities Extremities: no ischemia, No edema, Full ROM - Abdominal General gastrointestinal: soft, non-tender, non-distended, normal bowel sounds - Integumentary Integumentary: Present: clear, warm, dry - Neurologic Neurologic: CNII-XII intact, moves all extremities HEART Score - HEART Score Troponin: Troponin T < 0.010 ng/mL (0.00-0.029) 11/25/21 22:43 Results - Labs CBC & Chem 7: 11/25/21 22:43 11/25/21 22:43 Labs: Laboratory Last Values WBC 5.2 K/mm3 (4.5-11.0) 11/25/21 22:43 RBC 4.15 M/mm3 (3.65-5.03) 11/25/21 22: Hgb 13.3 gm/dl (11.8-15.2) 11/25/21: Hct 39.6 % (35.5-45.6) 11/25/21 22: MCV 96 fl (84-94) H 11/25/21 22:43 MCH 32 pg (28-32) 11/25/21: MCHC 34 % (32-34) 11/25/21: RDW 14.0 % (13.2-15.2) 11/25/21: Plt Count 123 K/mm3 (140-440) L 11/25/21: Lymph % (Auto) 16.7 % (13.4-35.0) 11/25/21: [place] % (Auto) 7.1 % (0.0-7.3) 11/25/21: Eos % (Auto) 3.0 % (0.0-4.3) 11/25/21: Baso % (Auto) 1.3 % (0.0-1.8) 11/25/21: Lymph # (Auto) 0.9 K/mm3 (1.2-5.4) L 11/25/21: [place] # (Auto) 0.4 K/mm3 (0.0-0.8) 11/25/21: Eos # (Auto) 0.2 K/mm3 (0.0-0.4) 11/25/21: Baso # (Auto) 0.1 K/mm3 (0.0-0.1) 11/25/21: Seg Neutrophils % 71.9 % (40.0-70.0) H 11/25/21: Seg Neutrophils # 3.7 K/mm3 (1.8-7.7) 11/25/21: PT 13.8 Sec. (12.2-14.9) 11/25/21: INR 0.96 (0.87-1.13) 11/25/21 22: APTT 29.6 Sec. (24.2-36.6) 11/25/21: Thrombin Time 16.2 Sec. (15.1-19.6) 11/25/21 22:43 Sodium 140 mmol/L (137-145) 11/25/21 22:43 Potassium 4.8 mmol/L (3.6-5.0) 11/25/21 22:43 Chloride 105.6 mmol/L (98-107) 11/25/21 22:43 Carbon Dioxide 24 mmol/L (22-30) 11/25/21 22:43 Anion Gap 15 mmol/L 11/25/21 22:43 BUN 17 mg/dL (9-20) 11/25/21 22:43 Creatinine 1.0 mg/dL (0.8-1.3) 11/25/21 22:43 Estimated GFR > 60 ml/min 11/25/21 22:43 BUN/Creatinine Ratio 17 % 11/25/21 22:43 Glucose 93 mg/dL (75-100) 11/25/21 22:43 Calcium 8.8 mg/dL (8.4-10.2) 11/25/21 22:43 Total Bilirubin 0.30 mg/dL (0.1-1.2) 11/25/21 22:43 AST 13 units/L (5-40) 11/25/21 22:43 ALT 10 units/L (7-56) 11/25/21 22:43 Alkaline Phosphatase 103 units/L (35-129) 11/25/21 22:43 Total Creatine Kinase 118 units/L (55-170) 11/25/21 22:43 CK-MB (CK-2) 2.5 ng/mL (0.0-4.0) 11/25/21 22:43 CK-MB (CK-2) Rel Index 2.1 (0-4) 11/25/21 22:43 Troponin T < 0.010 ng/mL (0.00-0.029) 11/25/21 22:43 Total Protein 7.0 g/dL (6.3-8.2) 11/25/21 22:43 Albumin 4.0 g/dL (3.9-5) 11/25/21 22:43 Albumin/Globulin Ratio 1.3 % 11/25/21 22:43 Urine Opiates Screen Presumptive negative 11/25/21 23:18 Urine Methadone Screen Presumptive negative 11/25/21 23:18 Ur Barbiturates Screen Presumptive negative 11/25/21 23:18 Ur Phencyclidine Scrn Presumptive negative 11/25/21 23:18 Ur Amphetamines Screen Presumptive negative 11/25/21 23:18 U Benzodiazepines Scrn Presumptive negative 11/25/21 23:18 Urine Cocaine Screen Presumptive positive 11/25/21 23:18 U Marijuana (THC) Screen Presumptive positive 11/25/21 23:18 Drugs of Abuse Note Disclamer 11/25/21 23:18 Plasma/Serum Alcohol < 0.01 % (0-0.07) 11/25/21 22:43 Ashby/IV: Voiding Method Toilet Active Medications - Current Medications Current Medications: Generic Name Dose Route Start Last Admin Trade Name Freq PRN Reason Stop Dose Admin Acetaminophen 650 mg 11/26/21 00:50 Acetaminophen 325 Mg Tab PO Q4H PRN Pain, Mild (1-3) Aspirin 325 mg 11/26/21 10:00 11/26/21 09:26 Aspirin 325 Mg Tab PO 325 mg QDAY BLACK Administration Atorvastatin Calcium 40 mg 11/26/21 22:00 Atorvastatin 40 Mg Tab PO QHS BLACK Bisacodyl 10 mg 11/26/21 00:50 Bisacodyl 10 Mg Rect Supp [place] QDAY PRN Constipation Dextrose 0 ml 11/26/21 01:11 Dextrose 10% *Hypoglycemia IV DIRECT PRN Hypoglycemia Protocol Heparin Sodium (Porcine) 5,000 unit 11/26/21 06:00 11/26/21 07:05 Heparin 5,000 Unit/1 Ml Vial SUB-Q 5,000 unit Q8HR BLACK Administration Hydralazine HCl 10 mg 11/26/21 02:38 11/26/21 09:26 Hydralazine 20 Mg/1 Ml Inj IV 10 mg Q4HR PRN Administration Hypertension Insulin Human Lispro 0 unit 11/26/21 07:30 11/26/21 09:27 Insulin Lispro 100 Unit/Ml SUB-Q Not Given ACHS [facility] Protocol Magnesium Hydroxide 30 ml 11/26/21 00:50 Magnesium Hydroxide (Mom) Oral Liqd Udc PO Q4H PRN Constipation Metoclopramide HCl 10 mg 11/26/21 00:50 Metoclopramide 10 Mg Tab PO Q6H PRN Nausea And Vomiting Morphine Sulfate 2 mg 11/26/21 00:50 Morphine 2 Mg/1 Ml Inj IV Q4H PRN Pain, Moderate (4-6) Morphine Sulfate 4 mg 11/26/21 00:50 Morphine 4 Mg/1 Ml Inj IV Q4H PRN Pain , Severe (7-10) Ondansetron HCl 4 mg 11/26/21 00:50 Ondansetron 4 Mg/2 Ml Inj IV Q8H PRN Nausea And Vomiting Promethazine HCl 25 mg 11/26/21 00:50 Promethazine 25 Mg Rect Supp [place] Q6H PRN Nausea And Vomiting Sodium Chloride 10 ml 11/26/21 10:00 11/26/21 09:28 Sodium Chloride 0.9% 10 Ml Flush Syringe IV 10 ml BID BLACK Administration Sodium Chloride 10 ml 11/26/21 00:50 Sodium Chloride 0.9% 10 Ml Flush Syringe IV PRN PRN LINE FLUSH
[2021-11-26] MEDS: MORPHINE 2 MG/1 ML INJ IV PRN ×2 (13:02→17:18)
--- NOTE | 2021-11-26 14:04 | Vascular Lab Report ---
DUPLEX DOPPLER ULTRASOUND CAROTID, BILATERAL INDICATION / CLINICAL INFORMATION: stroke. COMPARISON: None available. FINDINGS: RIGHT CAROTID: - PLAQUE ESTIMATE (%): < 50% - CCA velocity: 91 cm/sec. - ICA peak systolic velocity: 107 cm/sec. - ICA/CCA PSV Ratio: Less than 2 Right Vertebral Artery: Antegrade flow. LEFT CAROTID: - PLAQUE ESTIMATE (%): < 50% - CCA velocity: 92 cm/sec. - ICA peak systolic velocity: 91 cm/sec. - ICA/CCA PSV Ratio: Less than 2 Left Vertebral Artery: Antegrade flow. IMPRESSION: 1. Right Internal Carotid Artery: Less than 50% diameter stenosis. 2. Left Internal Carotid Artery: Less than 50% diameter stenosis. Velocity criteria are extrapolated from diameter data as defined by the Society of Radiologists in Ul trasound Consensus Conference, Radiology 2003; 229;340-346. NO STENOSIS (NORMAL) - Plaque = none; ICA PSV < 125 cm/sec; ICA/CCA PSV Ratio < 2.0 <50% STENOSIS - Plaque < 50%; ICA PSV < 125 cm/sec; ICA/CCA PSV Ratio < 2.0 50-69% STENOSIS - Plaque > 50%; ICA PSV = 125-230 cm/sec; ICA/CCA PSV Ratio = 2.0-4.0 >70% BUT <100% STENOSIS - Plaque > 50%; ICA PSV > 230 cm/sec; ICA/CCA PSV Ratio > 4.0 NEAR OCCLUSION - Plaque = visible lumen; ICA PSV = high/low/none; ICA/CCA PSV Ratio = variable TOTAL OCCLUSION - Plaque = no lumen; ICA PSV = none; ICA/CCA PSV Ratio = N/A Signer Name: Fili Dejesus DO Signed: 11/26/2021 1:59 PM Workstation Name: [email or web address]
[2021-11-26] MEDS ORDERED: IPRATROPIUM 0.02% NEBU 2.5 ML IH SCH (16:00)
[2021-11-26] MEDS ORDERED: ALBUTEROL 8.5 GM MDI INHALATION IH PRN (17:00)
[2021-11-26] MEDS: ACETAMINOPHEN 325 MG TAB PO PRN (17:11)
[2021-11-26] MEDS: IPRATROPIUM 0.02% NEBU 2.5 ML IH SCH (20:44)
[2021-11-27] MEDS: HEPARIN 5,000 UNIT/1 ML VIAL SUB-Q SCH ×3 (05:37→21:37)
[2021-11-27] MEDS: hydrALAZINE 20 MG/1 ML INJ IV PRN ×2 (05:37→12:13)
[2021-11-27 05:41] LABS: Basophils % (Auto) 0.4 % (0.0-1.8); Eosinophils # (Auto) 0.1 K/mm3 (0.0-0.4); Eosinophils % (Auto) 1.8 % (0.0-4.3); Hemoglobin 13.3 gm/dl (11.8-15.2); Lymphocytes # (Auto) 1.3 K/mm3 (1.2-5.4); Lymphocytes % (Auto) 25.5 % (13.4-35.0); Mean Corpuscular HGB Conc 33 % (32-34); Mean Corpuscular Volume 94 fl (84-94); Monocytes # (Auto) 0.3 K/mm3 (0.0-0.8); Monocytes % (Auto) 6.7 % (0.0-7.3); Platelet Count 109 K/mm3 (140-440); Red Blood Count 4.26 M/mm3 (3.65-5.03)
[2021-11-27 06:05] LABS: BUN/Creatinine Ratio 11; Blood Urea Nitrogen 11 mg/dL (9-20); Calcium 9.1 mg/dL (8.4-10.2); Hemolysis Index 2
--- NOTE | 2021-11-27 08:41 | Progress Note ---
Assessment and Plan Assessment and plan: 61-year-old -[place] male with known history of hypertension, diabetes mellitus, tobacco and marijuana abuse presenting to the emergency room via EMS with complaints of headache, unsteady gait and slurred speech. Chest x-ray was concerning for right paratracheal and right hilar adenopathy/mass. There was suggestion of a pulmonary mass in the left upper lobe adjacent to the aortic knob. CT of the head shows sequela of prior infarct in the right thalamus, chronic microvascular ischemic changes. CTA of the head showed no acute abnormality. CTA of the neck showed no significant abnormality. UDS was positive for marijuana and cocaine. Patient was evaluated by tele-neurology and found him not to be a TPA candidate. CVA Cocaine Diabetes mellitus type 2 Hypertension Lung mass 11/26/2021. Follow-up echocardiogram and MRI brain. Await neurology consultation. Consult pulmonary for further evaluation 11/27/2021. Await MRI brain and echocardiogram results. Neurology and pulmonary consultations pending. Check lipid panel. Continue secondary prevention with aspirin and Lipitor. Continue PT/OT/ST. History Interval history: No new issues overnight Hospitalist Physical - Constitutional Vitals: Temp Pulse Resp BP Pulse Ox 98.4 F 94 H 18 152/84 97 11/27/21 07:35 11/27/21 07:35 11/27/21 07:35 11/27/21 07:35 11/27/21 07:35 General appearance: Present: no acute distress, well-nourished - EENT Eyes: Present: PERRL, EOM intact ENT: hearing intact, clear oral mucosa, dentition normal - Neck Neck: Present: supple, normal ROM - Respiratory Respiratory effort: normal Respiratory: bilateral: CTA - Cardiovascular Rhythm: regular Heart Sounds: Present: S1 & S2. Absent: gallop, rub - Extremities Extremities: no ischemia, No edema, Full ROM - Abdominal General gastrointestinal: soft, non-tender, non-distended, normal bowel sounds - Integumentary Integumentary: Present: clear, warm, dry - Neurologic Neurologic: CNII-XII intact, moves all extremities HEART Score - HEART Score Troponin: Troponin T < 0.010 ng/mL (0.00-0.029) 11/25/21 22:43 Results - Labs CBC & Chem 7: 11/27/21 05:28 11/27/21 05:28 Labs: Laboratory Last Values WBC 4.9 K/mm3 (4.5-11.0) 11/27/21 05:28 RBC 4.26 M/mm3 (3.65-5.03) 11/27/21 05:28 Hgb 13.3 gm/dl (11.8-15.2) 11/27/21 05:28 Hct 40.0 % (35.5-45.6) 11/27/21 05:28 MCV 94 fl (84-94) 11/27/21 05:28 MCH 31 pg (28-32) 11/27/21 05:28 MCHC 33 % (32-34) 11/27/21 05:28 RDW 14.0 % (13.2-15.2) 11/27/21 05:28 Plt Count 109 K/mm3 (140-440) L 11/27/21 05:28 Lymph % (Auto) 25.5 % (13.4-35.0) 11/27/21 05:28 [place] % (Auto) 6.7 % (0.0-7.3) 11/27/21 05:28 Eos % (Auto) 1.8 % (0.0-4.3) 11/27/21 05:28 Baso % (Auto) 0.4 % (0.0-1.8) 11/27/21 05:28 Lymph # (Auto) 1.3 K/mm3 (1.2-5.4) 11/27/21 05:28 [place] # (Auto) 0.3 K/mm3 (0.0-0.8) 11/27/21 05:28 Eos # (Auto) 0.1 K/mm3 (0.0-0.4) 11/27/21 05:28 Baso # (Auto) 0.0 K/mm3 (0.0-0.1) 11/27/21 05:28 Seg Neutrophils % 65.6 % (40.0-70.0) 11/27/21 05:28 Seg Neutrophils # 3.2 K/mm3 (1.8-7.7) 11/27/21 05:28 PT 13.8 Sec. (12.2-14.9) 11/25/21 22:43 INR 0.96 (0.87-1.13) 03/19/22 22:43 APTT 29.6 Sec. (24.2-36.6) 11/25/21 22:43 Thrombin Time 16.2 Sec. (15.1-19.6) 11/25/21 22:43 Sodium 137 mmol/L (137-145) 11/27/21 05:28 Potassium 4.0 mmol/L (3.6-5.0) 11/27/21 05:28 Chloride 104.4 mmol/L (98-107) 11/27/21 05:28 Carbon Dioxide 20 mmol/L (22-30) L 11/27/21 05:28 Anion Gap 17 mmol/L 11/27/21 05:28 BUN 11 mg/dL (9-20) 11/27/21 05:28 Creatinine 1.0 mg/dL (0.8-1.3) 11/27/21 05:28 Estimated GFR > 60 ml/min 11/27/21 05:28 BUN/Creatinine Ratio 11 % 11/27/21 05:28 Glucose 83 mg/dL (75-100) 11/27/21 05:28 POC Glucose 107 mg/dL (70-105) H 11/27/21 07:37 Calcium 9.1 mg/dL (8.4-10.2) 11/27/21 05:28 Total Bilirubin 0.30 mg/dL (0.1-1.2) 11/25/21 22:43 AST 13 units/L (5-40) 11/25/21 22:43 ALT 10 units/L (7-56) 11/25/21 22:43 Alkaline Phosphatase 103 units/L (35-129) 11/25/21 22:43 Total Creatine Kinase 118 units/L (55-170) 11/25/21 22:43 CK-MB (CK-2) 2.5 ng/mL (0.0-4.0) 11/25/21 22:43 CK-MB (CK-2) Rel Index 2.1 (0-4) 11/25/21 22:43 Troponin T < 0.010 ng/mL (0.00-0.029) 11/25/21 22:43 Total Protein 7.0 g/dL (6.3-8.2) 11/25/21 22:43 Albumin 4.0 g/dL (3.9-5) 11/25/21 22:43 Albumin/Globulin Ratio 1.3 % 11/25/21 22:43 Urine Opiates Screen Presumptive negative 11/25/21 23:18 Urine Methadone Screen Presumptive negative 11/25/21 23:18 Ur Barbiturates Screen Presumptive negative 11/25/21 23:18 Ur Phencyclidine Scrn Presumptive negative 11/25/21 23:18 Ur Amphetamines Screen Presumptive negative 11/25/21 23:18 U Benzodiazepines Scrn Presumptive negative 11/25/21 23:18 Urine Cocaine Screen Presumptive positive 11/25/21 23:18 U Marijuana (THC) Screen Presumptive positive 11/25/21 23:18 Drugs of Abuse Note Disclamer 11/25/21 23:18 Plasma/Serum Alcohol < 0.01 % (0-0.07) 11/25/21 22:43 Ashby/IV: Voiding Method Urinal Active Medications - Current Medications Current Medications: Generic Name Dose Route Start Last Admin Trade Name Freq PRN Reason Stop Dose Admin Acetaminophen 650 mg 11/26/21 00:50 11/26/21 17:11 Acetaminophen 325 Mg Tab PO 650 mg Q4H PRN Administration Pain, Mild (1-3) Albuterol 1 puff 11/26/21 17:00 Albuterol 8.5 Gm Mdi Inhalation IH Q6HRT PRN Shortness Of Breath Aspirin 325 mg 11/26/21 10:00 11/26/21 09:26 Aspirin 325 Mg Tab PO 325 mg QDAY BLACK Administration Atorvastatin Calcium 40 mg 11/26/21 22:00 11/26/21 21:08 Atorvastatin 40 Mg Tab PO 40 mg QHS BLACK Administration Bisacodyl 10 mg 11/26/21 00:50 Bisacodyl 10 Mg Rect Supp [place] QDAY PRN Constipation Dextrose 0 ml 11/26/21 01:11 Dextrose 10% *Hypoglycemia IV DIRECT PRN Hypoglycemia Protocol Heparin Sodium (Porcine) 5,000 unit 11/26/21 06:00 11/27/21 05:37 Heparin 5,000 Unit/1 Ml Vial SUB-Q 5,000 unit Q8HR BLACK Administration Hydralazine HCl 10 mg 11/26/21 02:38 11/27/21 05:37 Hydralazine 20 Mg/1 Ml Inj IV 10 mg Q4HR PRN Administration Hypertension Insulin Human Lispro 0 unit 11/26/21 07:30 11/26/21 21:09 Insulin Lispro 100 Unit/Ml SUB-Q Not Given ACHS [facility] Protocol Ipratropium [place] 0.5 mg 11/26/21 20:00 11/26/21 20:44 Ipratropium 0.02% Nebu 2.5 Ml IH 0.5 mg TIDRT BLACK Administration Magnesium Hydroxide 30 ml 11/26/21 00:50 Magnesium Hydroxide (Mom) Oral Liqd Udc PO Q4H PRN Constipation Metoclopramide HCl 10 mg 11/26/21 00:50 Metoclopramide 10 Mg Tab PO Q6H PRN Nausea And Vomiting Morphine Sulfate 2 mg 11/26/21 00:50 11/26/21 17:18 Morphine 2 Mg/1 Ml Inj IV 2 mg Q4H PRN Administration Pain, Moderate (4-6) Morphine Sulfate 4 mg 11/26/21 00:50 Morphine 4 Mg/1 Ml Inj IV Q4H PRN Pain , Severe (7-10) Ondansetron HCl 4 mg 11/26/21 00:50 Ondansetron 4 Mg/2 Ml Inj IV Q8H PRN Nausea And Vomiting Promethazine HCl 25 mg 11/26/21 00:50 Promethazine 25 Mg Rect Supp [place] Q6H PRN Nausea And Vomiting Sodium Chloride 10 ml 11/26/21 10:00 11/26/21 21:09 Sodium Chloride 0.9% 10 Ml Flush Syringe IV 10 ml BID BLACK Administration Sodium Chloride 10 ml 11/26/21 00:50 11/26/21 17:19 Sodium Chloride 0.9% 10 Ml Flush Syringe IV 10 ml PRN PRN Administration LINE FLUSH
--- NOTE | 2021-11-27 08:42 | Consultation ---
History of Present Illness Consult date: 11/27/21 Reason for Consult: Unsteady gait and slurred speech History of present illness: Unsteady gait Slurred speech History of present illness: 61-year-old -I[place] male with known history of hypertension, diabetes mellitus, tobacco and marijuana abuse presenting to the emergency room today via EMS with complaints of headache, unsteady gait and slurred speech. Last well-known time was about 12 noon today when he was last seen by his sister. Patient had gone to his room to sleep at that time but later woke up wi th slurred speech and having unsteady gait. Patient admits to using marijuana last night. There has been no history of dizziness and no diaphoresis. No fever or chills, no chest pain or shortness of breath, no nausea vomiting and no abdominal pain. Work-up in the emergency room today, chest x-ray was concerning for right paratracheal region and right hilum with adenopathy/mass. There is suggestion of a pulmonary mass in the left upper lobe adjacent to the aortic knob. CT of the head shows sequela of prior infarct in the right thalamus, chronic microvascular ischemic changes. CTA of the head shows no acute abnormality. CTA of the neck shows no significant abnormality. Probable mediastinal and hilar abnormality with anterior peripheral pleural mass. UDS was positive for marijuana and cocaine. Patient was evaluated by tele-neurology and found her not to be a TPA candidate. He will be worked up for possible CVA. Today pt. is with left side weakness no headache , he is NPO awaiting speech evaluation feel hungry wants to eat -MRI brain is pending he was started on ASA and Lipitor echo is pending Past History Past Medical History: COPD, diabetes, hypertension, other (Asthma) Past Surgical History: Other (Suprapubic catheter) Social history: smoking (Current everyday smoker), alcohol abuse, other (Uses marijuana) Family history: no significant family history Medications and Allergies Allergies Allergy/AdvReac Type Severity Reaction Status Date / Time No Known Allergies Allergy Verified 07/04/20 09:37 Home Medications Medication Instructions Recorded Confirmed Last Taken Type Albuterol Mdi (or & Nicu Only) 2 puff IH QID PRN #8.5 gram 10/29/19 10/27/20 05/08/20 10:01 Rx [ProAir HFA Inhaler] lisinopriL [Zestril TAB] 20 mg PO QDAY #90 tablet 10/29/19 10/27/20 05/08/20 10:01 Rx Albuterol Sulfate [Albuterol 0.63% 0.63 mg IH TID PRN #1 box 05/09/20 10/27/20 Unknown Rx NEBS] Compressor, For Nebulizer [Ebase 1 each MC TID PRN #1 each 05/09/20 10/27/20 Unknown Rx Controller] Ipratropium [Atrovent NEB] 0.5 mg IH Q8HRT PRN #1 box 05/09/20 10/27/20 Unknown Rx Prednisone [predniSONE 10 mg 10 mg PO .TAPER #1 tab.ds.pk 05/09/20 10/27/20 Unknown Rx (6-Day Pack, 21 Tabs)] amLODIPine 10 mg PO DAILY #90 tab 07/04/20 10/27/20 Unknown Rx levoFLOXacin [Levaquin] 750 mg PO QDAY #5 tablet 10/28/20 Unknown Rx Acetaminophen [Non-Aspirin Extra 500 mg PO Q6HR PRN #30 tablet 11/06/20 Unknown Rx Strength] Famotidine [Pepcid] 20 mg PO QDAY #30 tablet 11/06/20 Unknown Rx Jocelynn Root [Jocelynn] 250 mg PO QID PRN #30 capsule 11/06/20 Unknown Rx Metoclopramide [Reglan] 10 mg PO QID PRN #30 tablet 11/06/20 Unknown Rx Promethazine [Phenergan SUPPOS] 50 mg [place] Q6H PRN #15 supp.rect 11/06/20 Unknown Rx HYDROcodone/APAP 5-325 [Bra[place] 1 each PO Q6HR PRN #10 tablet 02/09/21 Unknown Rx 5/325] Ondansetron [Zofran Odt] 4 mg PO Q8HR PRN #12 tab.rapdis 02/09/21 Unknown Rx Ibuprofen [Motrin 600 MG tab] 600 mg PO Q8H PRN #20 tablet 04/03/21 Unknown Rx Active Meds: Active Medications Acetaminophen (Acetaminophen 325 Mg Tab) 650 mg PO Q4H PRN PRN Reason: Pain MILD(1-3)/Fever >100.5/TAPIA Acetaminophen (Acetaminophen 325 Mg Tab) 650 mg PO Q4H PRN PRN Reason: Pain, Mild (1-3) Aspirin (Aspirin 325 Mg Tab) 325 mg PO QDAY BLACK Atorvastatin Calcium (Atorvastatin 40 Mg Tab) 40 mg PO QHS BLACK Bisacodyl (Bisacodyl 10 Mg Rect Supp) 10 mg [place] QDAY PRN PRN Reason: Constipation Dextrose (Dextrose 50% In Water (25gm) 50 Ml Syringe) 50 ml IV Q30MIN PRN; Protocol PRN Reason: Hypoglycemia Dextrose (Dextrose 50% In Water (25gm) 50 Ml Syringe) 50 ml IV Q30MIN PRN; Protocol PRN Reason: Hypoglycemia Insulin Human Lispro (Insulin Lispro 100 Unit/Ml) 0 unit SUB-Q ACHS BLACK; Protocol Magnesium Hydroxide (Magnesium Hydroxide (Mom) Oral Liqd Udc) 30 ml PO Q4H PRN PRN Reason: Constipation Magnesium Hydroxide (Magnesium Hydroxide (Mom) Oral Liqd Udc) 30 ml PO Q4H PRN PRN Reason: Constipation Metoclopramide HCl (Metoclopramide 10 Mg Tab) 10 mg PO Q6H PRN PRN Reason: Nausea And Vomiting Morphine Sulfate (Morphine 2 Mg/1 Ml Inj) 2 mg IV Q4H PRN PRN Reason: Pain, Moderate (4-6) Morphine Sulfate (Morphine 4 Mg/1 Ml Inj) 4 mg IV Q4H PRN PRN Reason: Pain , Severe (7-10) Morphine Sulfate (Morphine 2 Mg/1 Ml Inj) 2 mg IV Q4H PRN PRN Reason: Pain, Moderate (4-6) Morphine Sulfate (Morphine 4 Mg/1 Ml Inj) 4 mg IV Q4H PRN PRN Reason: Pain , Severe (7-10) Ondansetron HCl (Ondansetron 4 Mg/2 Ml Inj) 4 mg IV Q8H PRN PRN Reason: Nausea And Vomiting Ondansetron HCl (Ondansetron 4 Mg/2 Ml Inj) 4 mg IV Q8H PRN PRN Reason: Nausea And Vomiting Promethazine HCl (Promethazine 25 Mg Rect Supp) 25 mg [place] Q6H PRN PRN Reason: Nausea And Vomiting Sodium Chloride (Sodium Chloride 0.9% 10 Ml Flush Syringe) 10 ml IV BID BLACK Sodium Chloride (Sodium Chloride 0.9% 10 Ml Flush Syringe) 10 ml IV PRN PRN PRN Reason: LINE FLUSH Sodium Chloride (Sodium Chloride 0.9% 10 Ml Flush Syringe) 10 ml INJ PRN PRN PRN Reason: LINE FLUSH Review of Systems Constitutional: no fever, no chills Ears, nose, mouth and throat: no nasal congestion, no sore throat Cardiovascular: no chest pain, no palpitations Gastrointestinal: no abdominal pain, no nausea, no vomiting, no diarrhea Genitourinary Male: no dysuria, no hematuria, no nocturia Musculoskeletal: no neck pain, no low back pain Integumentary: no rash, no pruritis Neurological: change in speech, gait dysfunction, no headaches, no confusion Psychiatric: no anxiety, no depression Endocrine: no polyphagia, no polydipsia, no polyuria, no nocturia Past History Past Medical History: COPD, diabetes, hypertension, other (Asthma) Past Surgical History: Other (Suprapubic catheter) Social history: smoking (Current everyday smoker), alcohol abuse, other (Uses marijuana) Family history: no significant family history Medications and Allergies Allergies Allergy/AdvReac Type Severity Reaction Status Date / Time No Known Allergies Allergy Verified 07/04/20 09:37 Home Medications Medication Instructions Recorded Confirmed Last Taken Type Albuterol Mdi (or & Nicu Only) 2 puff IH QID PRN #8.5 gram 10/29/19 11/26/21 05/08/20 10:01 Rx [ProAir HFA Inhaler] lisinopriL [Zestril TAB] 20 mg PO QDAY #90 tablet 10/29/19 11/26/21 05/08/20 10:01 Rx Albuterol Sulfate [Albuterol 0.63% 0.63 mg IH TID PRN #1 box 05/09/20 11/26/21 Unknown Rx NEBS] Compressor, For Nebulizer [Ebase 1 each MC TID PRN #1 each 05/09/20 11/26/21 Unknown Rx Controller] Ipratropium [Atrovent NEB] 0.5 mg IH Q8HRT PRN #1 box 05/09/20 11/26/21 Unknown Rx Prednisone [predniSONE 10 mg 10 mg PO .TAPER #1 tab.ds.pk 05/09/20 11/26/21 Unknown Rx (6-Day Pack, 21 Tabs)] amLODIPine 10 mg PO DAILY #90 tab 07/04/20 11/26/21 Unknown Rx levoFLOXacin [Levaquin] 750 mg PO QDAY #5 tablet 10/28/20 11/26/21 Unknown Rx Acetaminophen [Non-Aspirin Extra 500 mg PO Q6HR PRN #30 tablet 11/06/20 11/26/21 Unknown Rx Strength] Famotidine [Pepcid] 20 mg PO QDAY #30 tablet 11/06/20 11/26/21 Unknown Rx Jocelynn Root [Jocelynn] 250 mg PO QID PRN #30 capsule 11/06/20 11/26/21 Unknown Rx Metoclopramide [Reglan] 10 mg PO QID PRN #30 tablet 11/06/20 11/26/21 Unknown Rx Promethazine [Phenergan SUPPOS] 50 mg [place] Q6H PRN #15 supp.rect 11/06/20 11/26/21 Unknown Rx HYDROcodone/APAP 5-325 [Braxton 1 each PO Q6HR PRN #10 tablet 02/09/21 11/26/21 Unknown Rx 5/325] Ondansetron [Zofran Odt] 4 mg PO Q8HR PRN #12 tab.rapdis 02/09/21 11/26/21 Unknown Rx Ibuprofen [Motrin 600 MG tab] 600 mg PO Q8H PRN #20 tablet 04/03/21 11/26/21 Unknown Rx Active Meds: Active Medications Acetaminophen (Acetaminophen 325 Mg Tab) 650 mg PO Q4H PRN PRN Reason: Pain, Mild (1-3) Last Admin: 11/26/21 17:11 Dose: 650 mg Albuterol (Albuterol 8.5 Gm Mdi Inhalation) 1 puff IH Q6HRT PRN PRN Reason: Shortness Of Breath Aspirin (Aspirin 325 Mg Tab) 325 mg PO QDAY [facility] Last Admin: 11/26/21 09:26 Dose: 325 mg Atorvastatin Calcium (Atorvastatin 40 Mg Tab) 40 mg PO QHS [facility] Last Admin: 11/26/21 21:08 Dose: 40 mg Bisacodyl (Bisacodyl 10 Mg Rect Supp) 10 mg [place] QDAY PRN PRN Reason: Constipation Dextrose (Dextrose 10% *Hypoglycemia) 0 ml IV DIRECT PRN; Protocol PRN Reason: Hypoglycemia Heparin Sodium (Porcine) (Heparin 5,000 Unit/1 Ml Vial) 5,000 unit SUB-Q Q8HR [facility] Last Admin: 11/27/21 05:37 Dose: 5,000 unit Hydralazine HCl (Hydralazine 20 Mg/1 Ml Inj) 10 mg IV Q4HR PRN PRN Reason: Hypertension Last Admin: 11/27/21 05:37 Dose: 10 mg Insulin Human Lispro (Insulin Lispro 100 Unit/Ml) 0 unit SUB-Q ACHS [facility]; Protocol Last Admin: 11/26/21 21:09 Dose: Not Given Ipratropium [place] (Ipratropium 0.02% Nebu 2.5 Ml) 0.5 mg IH TIDRT [facility] Last Admin: 11/26/21 20:44 Dose: 0.5 mg Magnesium Hydroxide (Magnesium Hydroxide (Mom) Oral Liqd Udc) 30 ml PO Q4H PRN PRN Reason: Constipation Metoclopramide HCl (Metoclopramide 10 Mg Tab) 10 mg PO Q6H PRN PRN Reason: Nausea And Vomiting Morphine Sulfate (Morphine 2 Mg/1 Ml Inj) 2 mg IV Q4H PRN PRN Reason: Pain, Moderate (4-6) Last Admin: 11/26/21 17:18 Dose: 2 mg Morphine Sulfate (Morphine 4 Mg/1 Ml Inj) 4 mg IV Q4H PRN PRN Reason: Pain , Severe (7-10) Ondansetron HCl (Ondansetron 4 Mg/2 Ml Inj) 4 mg IV Q8H PRN PRN Reason: Nausea And Vomiting Promethazine HCl (Promethazine 25 Mg Rect Supp) 25 mg [place] Q6H PRN PRN Reason: Nausea And Vomiting Sodium Chloride (Sodium Chloride 0.9% 10 Ml Flush Syringe) 10 ml IV BID [facility] Last Admin: 11/26/21 21:09 Dose: 10 ml Sodium Chloride (Sodium Chloride 0.9% 10 Ml Flush Syringe) 10 ml IV PRN PRN PRN Reason: LINE FLUSH Last Admin: 11/26/21 17:19 Dose: 10 ml Physical Examination - Vital Signs Vital Signs: Vital Signs BP Pulse Ox 167/95 97 11/25/21 22:30 11/25/21 22:30 - Constitutional General appearance: uncomfortable - EENT EENT: Present: PERRL, mucous membranes moist - Respiratory Respiratory: Present: lungs clear, rhonchi - Cardiovascular Cardiovascular: Present: regular rate, normal S1, normal S2 Extremities: Present: no peripheral edema bilatateraly, no clubbing, cyanosis - Gastrointestinal Gastrointestinal: Present: normoactive bowel sounds - Integumentary Integumentary: Present: normal - Neurologic Cranial nerve examination: PERRL, EOMI, facial droop Speech examination: other (slurred speech no aphasia ) Detailed motor examination: other (left side weakness 3/5 upper and lower , planter is down , reflexes 2+) - Level of Consciousness 1a. Level of Consciousness: alert/keenly responsive - LOC Questions 1b. LOC Questions: answers both correctly - LOC Command 1c. LOC Commands: performs tasks correctly - Best Gaze 2. Best Gaze: normal - Visual 3. Visual: no visual loss - Facial Palsy 4. Facial Palsy: minor paralysis - Motor Arm 5a. Motor Arm Left: some gravity effort 5b. Motor Arm Right: no drift - Motor Leg 6a. Motor Leg Left: drift 6b. Motor Leg Right: no drift - Limb Ataxia 7. Limb Ataxia: absent - Sensory 8. Sensory: normal - Best Language 9. Best Language: no aphasia - Dysarthria 10. Dysarthria: mild/moderate dysarthria - Extinction and Inattention 11. Extinction/Inattention: no abnormality - Scoring Total Score: 5 Stroke Severity: Moderate Stroke Results - Laboratory Findings CBC and BMP: 11/27/21 05:28 11/27/21 05:28 Abnormal Lab Findings: Abnormal Labs 11/25/21 11/27/21 11/27/21 22:43 05:28 05:28 MCV 96 H Plt Count 123 L 109 L Lymph # (Auto) 0.9 L Seg Neutrophils % 71.9 H Carbon Dioxide 20 L POC Glucose 11/27/21 07:37 MCV Plt Count Lymph # (Auto) Seg Neutrophils % Carbon Dioxide POC Glucose 107 H Assessment and Plan Assessment and Plan 61-year-old -I[place] male with known history of hypertension, diabetes mellitus, tobacco and marijuana abuse presenting to the emergency room today via EMS with complaints of headache, unsteady gait and slurred speech. Last well-known time was about 12 noon today when he was last seen by his sister. Patient had gone to his room to sleep at that time but later woke up with slurred speech and having unsteady gait. Patient admits to using marijuana last night. There has been no history of dizziness and no diaphoresis. No fever or chills, no chest pain or shortness of breath, no nausea vomiting and no abdominal pain. - Patient Problems #Acute left side weakness r/o Acute CVA (cerebrovascular accident) - left side weakness ,NIH#5 -started on ASA and Lipitor -PT/ST evaluate pt. is stil NPO -CT brain is remarkable for old right thalamic infarct -MRI brain is pending -CTA brain and neck are unremarkable -echo is pending -LDL is pending # Cocaine abuse -Patient counseled against cocaine abuse. # Diabetes -Patient placed on sliding scale insulin. We will monitor Accu-Cheks. # Hypertension -We will resume routine home medications and monitor vital signs closely. # Lung mass -Probable lung mass on the chest x-ray. -Recommendations to follow-up with CT chest with contrast. # DVT prophylaxis -Placed on subcutaneous heparin. # Full code status -Patient is full code.
--- NOTE | 2021-11-27 08:46 | Consultation ---
History of Present Illness Consult date: 11/27/21 Past History Past Medical History: COPD, diabetes, hypertension, other (Asthma) Past Surgical History: Other (Suprapubic catheter) Social history: smoking (Current everyday smoker), alcohol abuse, other (Uses marijuana) Family history: no significant family history Medications and Allergies Allergies Allergy/AdvReac Type Severity Reaction Status Date / Time No Known Allergies Allergy Verified 07/04/20 09:37 Home Medications Medication Instructions Recorded Confirmed Last Taken Type Albuterol Mdi (or & Nicu Only) 2 puff IH QID PRN #8.5 gram 10/29/19 11/26/21 05/08/20 10:01 Rx [ProAir HFA Inhaler] lisinopriL [Zestril TAB] 20 mg PO QDAY #90 tablet 10/29/19 11/26/21 05/08/20 10:01 Rx Albuterol Sulfate [Albuterol 0.63% 0.63 mg IH TID PRN #1 box 05/09/20 11/26/21 Unknown Rx NEBS] Compressor, For Nebulizer [Ebase 1 each MC TID PRN #1 each 05/09/20 11/26/21 Unknown Rx Controller] Ipratropium [Atrovent NEB] 0.5 mg IH Q8HRT PRN #1 box 05/09/20 11/26/21 Unknown Rx Prednisone [predniSONE 10 mg 10 mg PO .TAPER #1 tab.ds.pk 05/09/20 11/26/21 Unknown Rx (6-Day Pack, 21 Tabs)] amLODIPine 10 mg PO DAILY #90 tab 07/04/20 11/26/21 Unknown Rx levoFLOXacin [Levaquin] 750 mg PO QDAY #5 tablet 10/28/20 11/26/21 Unknown Rx Acetaminophen [Non-Aspirin Extra 500 mg PO Q6HR PRN #30 tablet 11/06/20 11/26/21 Unknown Rx Strength] Famotidine [Pepcid] 20 mg PO QDAY #30 tablet 11/06/20 11/26/21 Unknown Rx Jocelynn Root [Jocelynn] 250 mg PO QID PRN #30 capsule 11/06/20 11/26/21 Unknown Rx Metoclopramide [Reglan] 10 mg PO QID PRN #30 tablet 11/06/20 11/26/21 Unknown Rx Promethazine [Phenergan SUPPOS] 50 mg [place] Q6H PRN #15 supp.rect 11/06/20 11/26/21 Unknown Rx HYDROcodone/APAP 5-325 [[place] 1 each PO Q6HR PRN #10 tablet 02/09/21 11/26/21 Unknown Rx 5/325] Ondansetron [Zofran Odt] 4 mg PO Q8HR PRN #12 tab.rapdis 02/09/21 11/26/21 Unknown Rx Ibuprofen [Motrin 600 MG tab] 600 mg PO Q8H PRN #20 tablet 04/03/21 11/26/21 Unknown Rx Active Meds: Active Medications Acetaminophen (Acetaminophen 325 Mg Tab) 650 mg PO Q4H PRN PRN Reason: Pain, Mild (1-3) Last Admin: 11/26/21 17:11 Dose: 650 mg Albuterol (Albuterol 8.5 Gm Mdi Inhalation) 1 puff IH Q6HRT PRN PRN Reason: Shortness Of Breath Aspirin (Aspirin 325 Mg Tab) 325 mg PO QDAY [facility] Last Admin: 11/26/21 09:26 Dose: 325 mg Atorvastatin Calcium (Atorvastatin 40 Mg Tab) 40 mg PO QHS [facility] Last Admin: 11/26/21 21:08 Dose: 40 mg Bisacodyl (Bisacodyl 10 Mg Rect Supp) 10 mg [place] QDAY PRN PRN Reason: Constipation Dextrose (Dextrose 10% *Hypoglycemia) 0 ml IV DIRECT PRN; Protocol PRN Reason: Hypoglycemia Heparin Sodium (Porcine) (Heparin 5,000 Unit/1 Ml Vial) 5,000 unit SUB-Q Q8HR [facility] Last Admin: 11/27/21 05:37 Dose: 5,000 unit Hydralazine HCl (Hydralazine 20 Mg/1 Ml Inj) 10 mg IV Q4HR PRN PRN Reason: Hypertension Last Admin: 11/27/21 05:37 Dose: 10 mg Insulin Human Lispro (Insulin Lispro 100 Unit/Ml) 0 unit SUB-Q [facility]; Protocol Last Admin: 11/26/21 21:09 Dose: Not Given Ipratropium [place] (Ipratropium 0.02% Nebu 2.5 Ml) 0.5 mg IH TIDRT [facility] Last Admin: 11/26/21 20:44 Dose: 0.5 mg Magnesium Hydroxide (Magnesium Hydroxide (Mom) Oral Liqd Udc) 30 ml PO Q4H PRN PRN Reason: Constipation Metoclopramide HCl (Metoclopramide 10 Mg Tab) 10 mg PO Q6H PRN PRN Reason: Nausea And Vomiting Morphine Sulfate (Morphine 2 Mg/1 Ml Inj) 2 mg IV Q4H PRN PRN Reason: Pain, Moderate (4-6) Last Admin: 11/26/21 17:18 Dose: 2 mg Morphine Sulfate (Morphine 4 Mg/1 Ml Inj) 4 mg IV Q4H PRN PRN Reason: Pain , Severe (7-10) Ondansetron HCl (Ondansetron 4 Mg/2 Ml Inj) 4 mg IV Q8H PRN PRN Reason: Nausea And Vomiting Promethazine HCl (Promethazine 25 Mg Rect Supp) 25 mg [place] Q6H PRN PRN Reason: Nausea And Vomiting Sodium Chloride (Sodium Chloride 0.9% 10 Ml Flush Syringe) 10 ml IV BID BLACK Last Admin: 11/26/21 21:09 Dose: 10 ml Sodium Chloride (Sodium Chloride 0.9% 10 Ml Flush Syringe) 10 ml IV PRN PRN PRN Reason: LINE FLUSH Last Admin: 11/26/21 17:19 Dose: 10 ml Physical Examination - Vital Signs Vital Signs: Vital Signs BP Pulse Ox 167/95 97 11/25/21 22:30 11/25/21 22:30 Results - Laboratory Findings CBC and BMP: 11/27/21 05:28 11/27/21 05:28 Abnormal Lab Findings: Abnormal Labs 11/25/21 11/27/21 11/27/21 22:43 05:28 05:28 MCV 96 H Plt Count 123 L 109 L Lymph # (Auto) 0.9 L Seg Neutrophils % 71.9 H Carbon Dioxide 20 L POC Glucose 11/27/21 07:37 MCV Plt Count Lymph # (Auto) Seg Neutrophils % Carbon Dioxide POC Glucose 107 H
--- NOTE | 2021-11-27 09:02 | Electrocardiograph Report ---
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
[2021-11-27 09:09] LABS: Chol/HDL Ratio 3.11 %
--- NOTE | 2021-11-27 09:10 | Progress Note ---
Assessment and Plan 61 y/o male admitted with neurologic complaints, found to have abnormal CXR on screening with known obstructive lung disease. 1. Will order CT of chest today noncontrast 2. Smoking cessation 3. Home COPD regimen. Subjective Date of service: 11/27/21 Interval history: Patient seen yesterday by my partner. His note will be in soon. No CT of chest done yet on patient. Patient admitted with headache, unsteady gait and slurred speech on 11/25. He is a current everyday smoker. Objective Vital Signs - 12hr 11/26/21 11/26/21 11/27/21 23:02 23:29 03:35 Temperature 98.2 F 98.7 F Pulse Rate 75 79 84 Respiratory 18 16 Rate Blood Pressure 161/110 166/93 O2 Sat by Pulse 99 94 Oximetry 11/27/21 07:35 Temperature 98.4 F Pulse Rate 94 H Respiratory 18 Rate Blood Pressure 152/84 O2 Sat by Pulse 97 Oximetry CBC and BMP: 11/27/21 05:28 11/27/21 05:28 ABG, PT/INR, D-dimer: PT/INR, D-dimer PT 13.8 Sec. (12.2-14.9) 11/25/21 22:43 INR 0.96 (0.87-1.13) 11/25/21 22:43 Abnormal lab findings: Abnormal Labs 11/25/21 11/27/21 11/27/21 22:43 05:28 05:28 MCV 96 H Plt Count 123 L 109 L Lymph # (Auto) 0.9 L Seg Neutrophils % 71.9 H Carbon Dioxide 20 L POC Glucose 11/27/21 07:37 MCV Plt Count Lymph # (Auto) Seg Neutrophils % Carbon Dioxide POC Glucose 107 H
[2021-11-27] MEDS: IPRATROPIUM 0.02% NEBU 2.5 ML IH SCH ×3 (09:18→20:23)
[2021-11-27] MEDS: MORPHINE 2 MG/1 ML INJ IV PRN (09:32)
[2021-11-27] MEDS: ASPIRIN 325 MG TAB PO SCH (09:32)
[2021-11-27] MEDS: INSULIN LISPRO 100 UNIT/ML SUB-Q SCH ×4 (09:33→21:37)
--- NOTE | 2021-11-27 11:21 | Magnetic Resonance Report ---
MRI BRAIN 11/27/2021 INDICATION / CLINICAL INFORMATION: stroke, AMS, WEAKNESS. TECHNIQUE: Multiplanar, multisequence MR images of the brain were obtained. COMPARISON: None available. FINDINGS: BRAIN / INTRACRANIAL CONTENTS: Unenhanced MR images of the brain were obtained. There is 1.5 cm area of restricted diffusion in the right sharif radiata region, consistent with acut e ischemic injury. There is no associated hemorrhage. No other areas of acute ischemic change are present. Ventricles and sulci are normal in size and shape. There is evidence of chronic lacunar changes in the right thalamus. Moderate chronic microangiopathic white matter T2 weighted hyperintensities are present in the perive ntricular and deep white matter of cerebral hemispheres. EXTRACRANIAL: Unremarkable CRANIOCERVICAL JUNCTION: No significant abnormality. VASCULAR FLOW-VOIDS: No significant abnormality. IMPRESSION: Acute/recent 1.5 cm ischemic injury in right centrum semiovale. Underlying chronic and age-related changes. Signer Name: Telly Anne MD Signed: 11/27/2021 11:16 AM Workstation Name: [id number]
--- NOTE | 2021-11-27 11:21 | Cat Scan Report ---
CT CHEST WITHOUT CONTRAST INDICATION / CLINICAL INFORMATION: abnormal CXR. TECHNIQUE: Axial CT images were obtained through the chest without contrast. All CT scans at this location are p erformed using CT dose reduction for ALARA by means of automated exposure control. COMPARISON: 11/25/2021 FINDINGS: Diffuse emphysematous change within the lungs. Small area of spiculation seen within the right lung a pex measuring 6 mm. There is a rounded density/mass like lesion within the anterior aspect of the rig ht upper lung abutting the pleura measuring 2.2 x 2.0 cm. Enlarged mediastinal and right paratracheal adenopathy. There is flexor calcification within the adenopathy. Right hilar calcified nodes are see n. Calcified granulomas throughout the spleen IMPRESSION: 1. Masslike density in the left upper lung anteriorly abutting the pleura measuring 2.2 x 2.0 cm. Add itional spiculated nodule measuring 6 mm in the right upper lung. PET/CT scan could be performed for further evaluation 2. Mediastinal and right hilar adenopathy with associated calcifications within the adenopathy. Signer Name: Andrzej Love MD Signed: 11/27/2021 11:17 AM Workstation Name: [id number]
[2021-11-27] MEDS: ONDANSETRON 4 MG/2 ML INJ IV PRN (12:29)
[2021-11-27] MEDS: SODIUM CHLORIDE 0.9% 1000 ML 1,000 ML IV SCH (13:52)
[2021-11-28] MEDS: hydrALAZINE 20 MG/1 ML INJ IV PRN ×2 (00:03→23:46)
[2021-11-28] MEDS: HEPARIN 5,000 UNIT/1 ML VIAL SUB-Q SCH ×3 (05:27→21:13)
--- NOTE | 2021-11-28 08:14 | Progress Note ---
Assessment and Plan Assessment and plan: 61-year-old -[place] male with known history of hypertension, diabetes mellitus, tobacco and marijuana abuse presenting to the emergency room via EMS with complaints of headache, unsteady gait and slurred speech. Chest x-ray was concerning for right paratracheal and right hilar adenopathy/mass. There was suggestion of a pulmonary mass in the left upper lobe adjacent to the aortic knob. CT of the head shows sequela of prior infarct in the right thalamus, chronic microvascular ischemic changes. CTA of the head showed no acute abnormality. CTA of the neck showed no significant abnormality. UDS was positive for marijuana and cocaine. MRI brain; acute/recent 1.5 cm ischemic injury in the right centrum semiovale. Underlying chronic and age-related changes Assessment and plan; Acute strokelike symptoms ,patient was evaluated by tele-neurology and found him not to be a TPA candidate. --Acute CVA; Not a candidate for TPA Aspirin and statin Follow neuro work-up, PT OT rehab --History of cocaine use; Counseled and strongly advised to quit recreational drug use --Type II diabetes mellitus ; Accu-Chek, sliding scale coverage, ADA diet Long-acting insulin as needed, A1c 5.22 years ago Closely monitor --Hypertension; Moderate control, continue current antihypertensives As needed medications --History of lung mass; Patient is asymptomatic, further evaluation has outpatient . --Dyslipidemia; Low-cholesterol diet, statin --DVT prophylaxis; subcu heparin DC planning per case management PT recommended subacute rehab 11/26/2021. Follow-up echocardiogram and MRI brain. Await neurology consultation. Consult pulmonary for further evaluation 11/27/2021. Await MRI brain and echocardiogram results. Neurology and pulmonary consultations pending. Check lipid panel. Continue secondary prevention with aspirin and Lipitor. Continue PT/OT/ST. 11/28/2021; PT recommended subacute rehab, currently on liquid diet, advance as tolerated DC planning per case management History Interval history: I have seen and examined the patient at the bedside this morning Patient's chart and medications reviewed Patient was admitted with neuro symptoms Neuro work-up is in progress Neurology evaluation recommendations noted and appreciated Vital signs reviewed Hospitalist Physical - Constitutional Vitals: Temp Pulse Resp BP Pulse Ox 98.8 F 103 H 22 168/80 97 11/28/21 07:32 11/28/21 04:14 11/28/21 07:32 11/28/21 07:32 11/28/21 07:31 General appearance: Present: no acute distress, well-nourished - EENT Eyes: Present: PERRL, EOM intact - Neck Neck: Present: supple, normal ROM - Respiratory Respiratory effort: normal Respiratory: bilateral: diminished, negative: rales, rhonchi, wheezing - Cardiovascular Rhythm: regular Heart Sounds: Present: S1 & S2 - Extremities Extremities: no ischemia, No edema - Abdominal General gastrointestinal: soft, non-tender, non-distended, normal bowel sounds - Integumentary Integumentary: Present: clear, warm - Psychiatric Psychiatric: appropriate mood/affect, cooperative - Neurologic Neurologic: CNII-XII intact, moves all extremities HEART Score - HEART Score Troponin: Troponin T < 0.010 ng/mL (0.00-0.029) 11/25/21 22:43 Results - Labs CBC & Chem 7: 11/27/21 05:28 11/27/21 05:28 Labs: Laboratory Last Values WBC 4.9 K/mm3 (4.5-11.0) 11/27/21 05:28 RBC 4.26 M/mm3 (3.65-5.03) 11/27/21 05:28 Hgb 13.3 gm/dl (11.8-15.2) 11/27/21 05:28 Hct 40.0 % (35.5-45.6) 11/27/21 05:28 MCV 94 fl (84-94) 11/27/21 05:28 MCH 31 pg (28-32) 11/27/21 05:28 MCHC 33 % (32-34) 11/27/21 05:28 RDW 14.0 % (13.2-15.2) 11/27/21 05:28 Plt Count 109 K/mm3 (140-440) L 11/27/21 05:28 Lymph % (Auto) 25.5 % (13.4-35.0) 11/27/21 05:28 [place] % (Auto) 6.7 % (0.0-7.3) 11/27/21 05:28 Eos % (Auto) 1.8 % (0.0-4.3) 11/27/21 05:28 Baso % (Auto) 0.4 % (0.0-1.8) 11/27/21 05:28 Lymph # (Auto) 1.3 K/mm3 (1.2-5.4) 11/27/21 05:28 [place] # (Auto) 0.3 K/mm3 (0.0-0.8) 11/27/21 05:28 Eos # (Auto) 0.1 K/mm3 (0.0-0.4) 11/27/21 05:28 Baso # (Auto) 0.0 K/mm3 (0.0-0.1) 11/27/21 05:28 Seg Neutrophils % 65.6 % (40.0-70.0) 11/27/21 05:28 Seg Neutrophils # 3.2 K/mm3 (1.8-7.7) 11/27/21 05:28 PT 13.8 Sec. (12.2-14.9) 11/25/21 22:43 INR 0.96 (0.87-1.13) 11/25/21 22:43 APTT 29.6 Sec. (24.2-36.6) 11/25/21 22:43 Thrombin Time 16.2 Sec. (15.1-19.6) 11/25/21 22:43 Sodium 137 mmol/L (137-145) 11/27/21 05:28 Potassium 4.0 mmol/L (3.6-5.0) 11/27/21 05:28 Chloride 104.4 mmol/L (98-107) 11/27/21 05:28 Carbon Dioxide 20 mmol/L (22-30) L 11/27/21 05:28 Anion Gap 17 mmol/L 11/27/21 05:28 BUN 11 mg/dL (9-20) 11/27/21 05:28 Creatinine 1.0 mg/dL (0.8-1.3) 11/27/21 05:28 Estimated GFR > 60 ml/min 11/27/21 05:28 BUN/Creatinine Ratio 11 % 11/27/21 05:28 Glucose 83 mg/dL (75-100) 11/27/21 05:28 POC Glucose 132 mg/dL (70-105) H 11/27/21 21:10 Calcium 9.1 mg/dL (8.4-10.2) 11/27/21 05:28 Total Bilirubin 0.30 mg/dL (0.1-1.2) 11/25/21 22:43 AST 13 units/L (5-40) 11/25/21 22:43 ALT 10 units/L (7-56) 11/25/21 22:43 Alkaline Phosphatase 103 units/L (35-129) 11/25/21 22:43 Total Creatine Kinase 118 units/L (55-170) 11/25/21 22:43 CK-MB (CK-2) 2.5 ng/mL (0.0-4.0) 11/25/21 22:43 CK-MB (CK-2) Rel Index 2.1 (0-4) 11/25/21 22:43 Troponin T < 0.010 ng/mL (0.00-0.029) 11/25/21 22:43 Total Protein 7.0 g/dL (6.3-8.2) 11/25/21 22:43 Albumin 4.0 g/dL (3.9-5) 11/25/21 22:43 Albumin/Globulin Ratio 1.3 % 11/25/21 22:43 Triglycerides 84 mg/dL (2-149) 11/27/21 05:28 Cholesterol 140 mg/dL (50-199) 11/27/21 05:28 LDL Cholesterol Direct 83 mg/dL (50-130) 11/27/21 05:28 HDL Cholesterol 45 mg/dL (40-59) 11/27/21 05:28 Cholesterol/HDL Ratio 3.11 % 11/27/21 05:28 Urine Opiates Screen Presumptive negative 11/25/21 23:18 Urine Methadone Screen Presumptive negative 11/25/21 23:18 Ur Barbiturates Screen Presumptive negative 11/25/21 23:18 Ur Phencyclidine Scrn Presumptive negative 11/25/21 23:18 Ur Amphetamines Screen Presumptive negative 11/25/21 23:18 U Benzodiazepines Scrn Presumptive negative 11/25/21 23:18 Urine Cocaine Screen Presumptive positive 11/25/21 23:18 U Marijuana (THC) Screen Presumptive positive 11/25/21 23:18 Drugs of Abuse Note Disclamer 11/25/21 23:18 Plasma/Serum Alcohol < 0.01 % (0-0.07) 11/25/21 22:43 [place]/IV: Voiding Method Urinal Active Medications - Current Medications Current Medications: Generic Name Dose Route Start Last Admin Trade Name Freq PRN Reason Stop Dose Admin Acetaminophen 650 mg 11/26/21 00:50 11/26/21 17:11 Acetaminophen 325 Mg Tab PO 650 mg Q4H PRN Administration Pain, Mild (1-3) Albuterol 1 puff 11/26/21 17:00 Albuterol 8.5 Gm Mdi Inhalation IH Q6HRT PRN Shortness Of Breath Aspirin 325 mg 11/26/21 10:00 11/27/21 09:32 Aspirin 325 Mg Tab PO 325 mg QDAY BLACK Administration Atorvastatin Calcium 40 mg 11/26/21 22:00 11/27/21 21:37 Atorvastatin 40 Mg Tab PO 40 mg QHS BLACK Administration Bisacodyl 10 mg 11/26/21 00:50 Bisacodyl 10 Mg Rect Supp MA QDAY PRN Constipation Dextrose 0 ml 11/26/21 01:11 Dextrose 10% *Hypoglycemia IV DIRECT PRN Hypoglycemia Protocol Heparin Sodium (Porcine) 5,000 unit 11/26/21 06:00 11/28/21 05:27 Heparin 5,000 Unit/1 Ml Vial SUB-Q 5,000 unit Q8HR BLACK Administration Hydralazine HCl 10 mg 11/26/21 02:38 11/28/21 00:03 Hydralazine 20 Mg/1 Ml Inj IV 10 mg Q4HR PRN Administration Hypertension Sodium Chloride 1,000 mls @ 75 mls/hr 11/27/21 12:15 11/27/21 13:52 Nacl 0.9% 1000 Ml IV 75 mls/hr DIRECT BLACK Administration Insulin Human Lispro 0 unit 11/26/21 07:30 11/27/21 21:37 Insulin Lispro 100 Unit/Ml SUB-Q Not Given ACHS BLACK Protocol Ipratropium [place] 0.5 mg 11/26/21 20:00 11/27/21 20:23 Ipratropium 0.02% Nebu 2.5 Ml IH 0.5 mg TIDRT BLACK Administration Magnesium Hydroxide 30 ml 11/26/21 00:50 Magnesium Hydroxide (Mom) Oral Liqd Udc PO Q4H PRN Constipation Metoclopramide HCl 10 mg 11/26/21 00:50 Metoclopramide 10 Mg Tab PO Q6H PRN Nausea And Vomiting Morphine Sulfate 2 mg 03/20/22 00:50 11/27/21 09:32 Morphine 2 Mg/1 Ml Inj IV 2 mg Q4H PRN Administration Pain, Moderate (4-6) Morphine Sulfate 4 mg 11/26/21 00:50 Morphine 4 Mg/1 Ml Inj IV Q4H PRN Pain , Severe (7-10) Ondansetron HCl 4 mg 11/26/21 00:50 11/27/21 12:29 Ondansetron 4 Mg/2 Ml Inj IV 4 mg Q8H PRN Administration Nausea And Vomiting Promethazine HCl 25 mg 11/26/21 00:50 Promethazine 25 Mg Rect Supp MA Q6H PRN Nausea And Vomiting Sodium Chloride 10 ml 11/26/21 10:00 11/27/21 21:37 Sodium Chloride 0.9% 10 Ml Flush Syringe IV 10 ml BID BLACK Administration Sodium Chloride 10 ml 11/26/21 00:50 11/27/21 13:53 Sodium Chloride 0.9% 10 Ml Flush Syringe IV 10 ml PRN PRN Administration LINE FLUSH
[2021-11-28] MEDS: INSULIN LISPRO 100 UNIT/ML SUB-Q SCH ×4 (08:24→22:41)
[2021-11-28] MEDS: IPRATROPIUM 0.02% NEBU 2.5 ML IH SCH ×3 (08:51→20:26)
[2021-11-28] MEDS: ASPIRIN 325 MG TAB PO SCH (09:22)
--- NOTE | 2021-11-28 12:03 | Progress Note ---
Assessment and Plan 61 y/o male admitted with neurologic complaints, found to have abnormal CXR on screening with known obstructive lung disease. 11/28/21: this lesion is suspicious for malignancy given location and characteristics. However I feel the risks of CT guided biopsy (not able to get to it via bronch) are higher than the benefits given the degree of emphysema. Can have IR at least evaluate the CT to see if the they feel the could get the lesion safely. Will continue to follow. 1. Will order CT of chest today noncontrast 2. Smoking cessation 3. Home COPD regimen. Subjective Date of service: 11/28/21 Interval history: No acute events. CT done and it does show calcifications in the mediastinal adenopathy seen on CXR. There is a an anterior lung mass with emphysema present in bilateral upper lobes. Objective Vital Signs - 12hr 11/28/21 11/28/21 11/28/21 00:03 03:02 04:14 Temperature 98.4 F Pulse Rate 87 104 H 103 H Pulse Rate [ Anterior] Respiratory 16 20 Rate Respiratory Rate [Anterior] Blood Pressure 192/98 142/72 133/79 Blood Pressure [Right] O2 Sat by Pulse 93 95 Oximetry 11/28/21 11/28/21 11/28/21 07:31 07:32 08:00 Temperature 98.8 F Pulse Rate Pulse Rate [ 103 H Anterior] Respiratory 22 Rate Respiratory 19 Rate [Anterior] Blood Pressure 168/80 Blood Pressure [Right] O2 Sat by Pulse 97 Oximetry 11/28/21 11/28/21 11/28/21 08:25 08:52 11:53 Temperature 98.1 F Pulse Rate 87 90 Pulse Rate [ Anterior] Respiratory 22 Rate Respiratory Rate [Anterior] Blood Pressure Blood Pressure 169/96 [Right] O2 Sat by Pulse 100 96 Oximetry Gastrointestinal: normoactive bowel sounds Integumentary: normal CBC and BMP: 11/27/21 05:28 11/27/21 05:28 ABG, PT/INR, D-dimer: PT/INR, D-dimer PT 13.8 Sec. (12.2-14.9) 11/25/21 22:43 INR 0.96 (0.87-1.13) 11/25/21 22:43 Abnormal lab findings: Abnormal Labs 11/25/21 11/27/21 11/27/21 22:43 05:28 05:28 MCV 96 H Plt Count 123 L 109 L Lymph # (Auto) 0.9 L Seg Neutrophils % 71.9 H Carbon Dioxide 20 L POC Glucose 11/27/21 11/27/21 11/27/21 07:37 15:51 17:48 MCV Plt Count Lymph # (Auto) Seg Neutrophils % Carbon Dioxide POC Glucose 107 H 220 H 163 H 11/27/21 11/27/21 20:29 21:10 MCV Plt Count Lymph # (Auto) Seg Neutrophils % Carbon Dioxide POC Glucose 54 L 132 H
--- NOTE | 2021-11-28 12:16 | Progress Note ---
Assessment and Plan Assessment and Plan 61-year-old -[place] male with known history of hypertension, diabetes mellitus, tobacco and marijuana abuse presenting to the emergency room today via EMS with complaints of headache, unsteady gait and slurred speech. Last well-known time was about 12 noon today when he was last seen by his sister. Patient had gone to his room to sleep at that time but later woke up with slurred speech and having unsteady gait. Patient admits to using marijuana last night. There has been no history of dizziness and no diaphoresis. No fever or chills, no chest pain or shortness of breath, no nausea vomiting and no abdominal pain. - Patient Problems #Acute left side weakness r/o Acute CVA (cerebrovascular accident) - left side weakness ,NIH#5 -started on ASA and Lipitor -PT/ST evaluate -CT brain is remarkable for old right thalamic infarct -MRI brain is trmarkable for right semiovale lacunar infarct -CTA brain and neck are unremarkable -echo is with LVH with Ef#50-55% -LDL is pending -Need PT /st and rehabilitation evaluation # HT poorly controlled - need better control of BP<150/80 -comply with medications # Cocaine abuse -Patient counseled against cocaine abuse. # Diabetes -Patient placed on sliding scale insulin. We will monitor Accu-Cheks. # Hypertension -We will resume routine home medications and monitor vital signs closely. # Lung mass -awaiting CT chest -followed by pulmonary -Probable lung mass on the chest x-ray. -Recommendations to follow-up with CT chest with contrast. # DVT prophylaxis -Placed on subcutaneous heparin. # Full code status -Patient is full code. Subjective Date of service: 11/28/21 Interval history: left side weakness is unchanged BP continue to be high 192/98---168/80 MRI brain is noted right 1.5 cm centrum semiovale lacunar infarct awaiting CT chest followed by Pulmonary Objective - Vital Sign Vital Signs - 12hr 11/28/21 11/28/21 11/28/21 03:02 04:14 07:31 Temperature 98.4 F Pulse Rate 104 H 103 H Pulse Rate [ Anterior] Respiratory 16 20 Rate Respiratory Rate [Anterior] Blood Pressure 142/72 133/79 Blood Pressure [Right] O2 Sat by Pulse 93 95 97 Oximetry 11/28/21 11/28/21 11/28/21 07:32 08:00 08:25 Temperature 98.8 F Pulse Rate 87 Pulse Rate [ 103 H Anterior] Respiratory 22 Rate Respiratory 19 Rate [Anterior] Blood Pressure 168/80 Blood Pressure [Right] O2 Sat by Pulse Oximetry 11/28/21 11/28/21 08:52 11:53 Temperature 98.1 F Pulse Rate 90 Pulse Rate [ Anterior] Respiratory 22 Rate Respiratory Rate [Anterior] Blood Pressure Blood Pressure 169/96 [Right] O2 Sat by Pulse 100 96 Oximetry - General Apperance Constitutional: comfortable - EENT EENT: PERRL, mucous membranes moist - Respiratory Respiratory: lungs clear, rhonchi - Cardiovascular Cardiovascular: regular rate, normal S1, normal S2 Extremities: no peripheral edema bilat, no clubbing, cyanosis - Gastrointestinal Gastrointestinal: normoactive bowel sounds - Integumentary Integumentary: normal - Neurologic Cranial nerve examination: PERRL, EOMI, facial droop Speech examination: intact Detailed motor examination: other (left upper and lower 3/5 , gait not done ) - Laboratory Findings CBC and BMP: 11/27/21 05:28 11/27/21 05:28 Abnormal Lab Findings: Abnormal Labs 11/25/21 11/27/21 11/27/21 22:43 05:28 05:28 MCV 96 H Plt Count 123 L 109 L Lymph # (Auto) 0.9 L Seg Neutrophils % 71.9 H Carbon Dioxide 20 L POC Glucose 11/27/21 11/27/21 11/27/21 07:37 15:51 17:48 MCV Plt Count Lymph # (Auto) Seg Neutrophils % Carbon Dioxide POC Glucose 107 H 220 H 163 H 11/27/21 11/27/21 20:29 21:10 MCV Plt Count Lymph # (Auto) Seg Neutrophils % Carbon Dioxide POC Glucose 54 L 132 H
[2021-11-28] MEDS: SODIUM CHLORIDE 0.9% 1000 ML 1,000 ML IV SCH (17:50)
[2021-11-28] MEDS: ACETAMINOPHEN 325 MG TAB PO PRN (23:46)
[2021-11-29] MEDS: HEPARIN 5,000 UNIT/1 ML VIAL SUB-Q SCH ×3 (05:57→22:01)
[2021-11-29] MEDS: SODIUM CHLORIDE 0.9% 1000 ML 1,000 ML IV SCH ×2 (05:57→21:43)
[2021-11-29] MEDS: INSULIN LISPRO 100 UNIT/ML SUB-Q SCH ×4 (08:07→22:00)
[2021-11-29] MEDS: IPRATROPIUM 0.02% NEBU 2.5 ML IH SCH ×3 (08:56→21:14)
[2021-11-29] MEDS: ASPIRIN 325 MG TAB PO SCH (09:18)
--- NOTE | 2021-11-29 11:16 | Progress Note ---
Assessment and Plan Assessment and Plan 61-year-old -[place] male with known history of hypertension, diabetes mellitus, tobacco and marijuana abuse presenting to the emergency room today via EMS with complaints of headache, unsteady gait and slurred speech. Last well-known time was about 12 noon today when he was last seen by his sister. Patient had gone to his room to sleep at that time but later woke up with slurred speech and having unsteady gait. Patient admits to using marijuana last night. There has been no history of dizziness and no diaphoresis. No fever or chills, no chest pain or shortness of breath, no nausea vomiting and no abdominal pain. - Patient Problems #Acute left side weakness r/o Acute CVA (cerebrovascular accident) - left side weakness ,NIH#5 -started on ASA and Lipitor -PT/ST evaluate -CT brain is remarkable for old right thalamic infarct -MRI brain is remarkable for right semiovale lacunar infarct -CTA brain and neck are unremarkable -echo is with LVH with Ef#50-55% -LDL is # 83 -Need PT /st and rehabilitation evaluation # HT poorly controlled - need better control of BP<150/80 -comply with medications # Cocaine abuse -Patient counseled against cocaine abuse. # Diabetes -Patient placed on sliding scale insulin. We will monitor Accu-Cheks. # Hypertension -We will resume routine home medications and monitor vital signs closely. # Lung mass -awaiting CT chest -followed by pulmonary -Probable lung mass on the chest x-ray. -Recommendations to follow-up with CT chest with contrast. # DVT prophylaxis -Placed on subcutaneous heparin. # Full code status -Patient is full code. Plan 1- maintain med 2-Rehabilitation/PT will follow as needed Subjective Date of service: 11/29/21 Interval history: left side weakness is unchanged BP continue to be high 192/98---168/80 improved --145/77 MRI brain is noted right 1.5 cm centrum semiovale lacunar infarct awaiting CT chest followed by Pulmonary Objective - Vital Sign Vital Signs - 12hr 11/28/21 11/29/21 11/29/21 23:39 04:01 07:36 Temperature 98.4 F 98.5 F 98.3 F Pulse Rate 90 79 84 Pulse Rate [ Anterior] Respiratory 18 16 18 Rate Respiratory Rate [Anterior] Blood Pressure 173/98 145/77 163/92 O2 Sat by Pulse 97 98 98 Oximetry 11/29/21 11/29/21 11/29/21 08:00 08:40 08:57 Temperature Pulse Rate Pulse Rate [ 89 Anterior] Respiratory 17 Rate Respiratory 17 Rate [Anterior] Blood Pressure O2 Sat by Pulse 98 96 Oximetry - General Apperance Constitutional: comfortable - EENT EENT: PERRL, mucous membranes moist - Respiratory Respiratory: lungs clear, rhonchi - Cardiovascular Cardiovascular: regular rate, normal S1, normal S2 Extremities: no peripheral edema bilat, no clubbing, cyanosis - Gastrointestinal Gastrointestinal: normoactive bowel sounds - Integumentary Integumentary: normal - Neurologic Cranial nerve examination: PERRL, EOMI, facial droop Speech examination: intact Detailed motor examination: other (left upper and lower 3+/5 , gait not done) - Laboratory Findings CBC and BMP: 11/27/21 05:28 11/27/21 05:28 Abnormal Lab Findings: Abnormal Labs 11/25/21 11/27/21 11/27/21 22:43 05:28 05:28 MCV 96 H Plt Count 123 L 109 L Lymph # (Auto) 0.9 L Seg Neutrophils % 71.9 H Carbon Dioxide 20 L POC Glucose 11/27/21 11/27/21 11/27/21 07:37 15:51 17:48 MCV Plt Count Lymph # (Auto) Seg Neutrophils % Carbon Dioxide POC Glucose 107 H 220 H 163 H 11/27/21 11/27/21 11/28/21 20:29 21:10 11:59 MCV Plt Count Lymph # (Auto) Seg Neutrophils % Carbon Dioxide POC Glucose 54 L 132 H 117 H 11/28/21 11/28/21 16:08 19:59 MCV Plt Count Lymph # (Auto) Seg Neutrophils % Carbon Dioxide POC Glucose 108 H 124 H
--- NOTE | 2021-11-29 12:46 | Progress Note ---
Assessment and Plan 61 y/o male admitted with neurologic complaints, found to have abnormal CXR on screening with known obstructive lung disease. 11/29/21: No new recs, please see below. If biopsy not done or attempted, could consider PET scan. 11/28/21: this lesion is suspicious for malignancy given location and characteristics. However I feel the risks of CT guided biopsy (not able to get to it via bronch) are higher than the benefits given the degree of emphysema. Can have IR at least evaluate the CT to see if the they feel the could get the lesion safely. Will continue to follow. 1. Will order CT of chest today noncontrast 2. Smoking cessation 3. Home COPD regimen. Subjective Date of service: 11/29/21 Interval history: no acute events. States he will do whatever to get well. Objective Vital Signs - 12hr 11/29/21 11/29/21 11/29/21 04:01 07:36 08:00 Temperature 98.5 F 98.3 F Pulse Rate 79 84 Pulse Rate [ 89 Anterior] Respiratory 16 18 Rate Respiratory 17 Rate [Anterior] Blood Pressure 145/77 163/92 O2 Sat by Pulse 98 98 Oximetry 11/29/21 11/29/21 08:40 08:57 Temperature Pulse Rate Pulse Rate [ Anterior] Respiratory 17 Rate Respiratory Rate [Anterior] Blood Pressure O2 Sat by Pulse 98 96 Oximetry Gastrointestinal: normoactive bowel sounds Integumentary: normal CBC and BMP: 11/27/21 05:28 11/27/21 05:28 ABG, PT/INR, D-dimer: PT/INR, D-dimer PT 13.8 Sec. (12.2-14.9) 11/25/21 22:43 INR 0.96 (0.87-1.13) 11/25/21 22:43 Abnormal lab findings: Abnormal Labs 11/25/21 11/27/21 11/27/21 22:43 05:28 05:28 MCV 96 H Plt Count 123 L 109 L Lymph # (Auto) 0.9 L Seg Neutrophils % 71.9 H Carbon Dioxide 20 L POC Glucose 11/27/21 11/27/21 11/27/21 07:37 15:51 17:48 MCV Plt Count Lymph # (Auto) Seg Neutrophils % Carbon Dioxide POC Glucose 107 H 220 H 163 H 11/27/21 11/27/21 11/28/21 20:29 21:10 11:59 MCV Plt Count Lymph # (Auto) Seg Neutrophils % Carbon Dioxide POC Glucose 54 L 132 H 117 H 11/28/21 11/28/21 16:08 19:59 MCV Plt Count Lymph # (Auto) Seg Neutrophils % Carbon Dioxide POC Glucose 108 H 124 H
--- NOTE | 2021-11-29 20:51 | Progress Note ---
Assessment and Plan Assessment and plan: 61-year-old -[place] male with known history of hypertension, diabetes mellitus, tobacco and marijuana abuse presenting to the emergency room via EMS with complaints of headache, unsteady gait and slurred speech. Chest x-ray was concerning for right paratracheal and right hilar adenopathy/mass. There was suggestion of a pulmonary mass in the left upper lobe adjacent to the aortic knob. CT of the head shows sequela of prior infarct in the right thalamus, chronic microvascular ischemic changes. CTA of the head showed no acute abnormality. CTA of the neck showed no significant abnormality. UDS was positive for marijuana and cocaine. MRI brain; acute/recent 1.5 cm ischemic injury in the right centrum semiovale. Underlying chronic and age-related changes Assessment and plan; Acute strokelike symptoms ,patient was evaluated by tele-neurology and found him not to be a TPA candidate. --Acute CVA; Not a candidate for TPA Aspirin and statin Follow neuro work-up, PT OT rehab --History of cocaine use; Counseled and strongly advised to quit recreational drug use --Type II diabetes mellitus ; Accu-Chek, sliding scale coverage, ADA diet Long-acting insulin as needed, A1c 5.22 years ago Closely monitor --Hypertension; Moderate control, continue current antihypertensives As needed medications --History of lung mass; Patient is asymptomatic, further evaluation has outpatient Pulmonary following, may not be amenable for bronchoscopic biopsy We will check with IR for possible CT-guided biopsy. Of the lung mass --Dyslipidemia; Low-cholesterol diet, statin --DVT prophylaxis; subcu heparin DC planning per case management PT recommended subacute rehab 11/26/2021. Follow-up echocardiogram and MRI brain. Await neurology consultation. Consult pulmonary for further evaluation 11/27/2021. Await MRI brain and echocardiogram results. Neurology and pulmonary consultations pending. Check lipid panel. Continue secondary prevention with aspirin and Lipitor. Continue PT/OT/ST. 11/28/2021; PT recommended subacute rehab, currently on liquid diet, advance as tolerated DC planning per case management 11/29/2021; will check with interventional radiologist for CT-guided biopsy. History Interval history: I have seen and examined the patient at the bedside Patient's chart and medications reviewed No new events reported by nursing Vital signs noted Hospitalist Physical - Constitutional Vitals: Temp Pulse Resp BP Pulse Ox 98.0 F 78 16 187/90 98 11/29/21 20:10 11/29/21 20:10 11/29/21 20:10 11/29/21 20:10 11/29/21 20:10 General appearance: Present: no acute distress, cachectic - EENT Eyes: Present: PERRL, EOM intact - Neck Neck: Present: supple, normal ROM - Respiratory Respiratory effort: normal Respiratory: bilateral: diminished, rhonchi, negative: rales, wheezing - Cardiovascular Rhythm: regular Heart Sounds: Present: S1 & S2 - Extremities Extremities: no ischemia, No edema - Abdominal General gastrointestinal: soft, non-tender, non-distended, normal bowel sounds - Integumentary Integumentary: Present: clear, warm - Psychiatric Psychiatric: appropriate mood/affect, cooperative - Neurologic Neurologic: moves all extremities HEART Score - HEART Score Troponin: Troponin T < 0.010 ng/mL (0.00-0.029) 11/25/21 22:43 Results - Labs CBC & Chem 7: 11/27/21 05:28 11/27/21 05:28 Labs: Laboratory Last Values WBC 4.9 K/mm3 (4.5-11.0) 11/27/21 05:28 RBC 4.26 M/mm3 (3.65-5.03) 11/27/21 05:28 Hgb 13.3 gm/dl (11.8-15.2) 11/27/21 05:28 Hct 40.0 % (35.5-45.6) 11/27/21 05:28 MCV 94 fl (84-94) 11/27/21 05:28 MCH 31 pg (28-32) 11/27/21 05:28 MCHC 33 % (32-34) 11/27/21 05:28 RDW 14.0 % (13.2-15.2) 11/27/21 05:28 Plt Count 109 K/mm3 (140-440) L 11/27/21 05:28 Lymph % (Auto) 25.5 % (13.4-35.0) 11/27/21 05:28 [place] % (Auto) 6.7 % (0.0-7.3) 11/27/21 05:28 Eos % (Auto) 1.8 % (0.0-4.3) 11/27/21 05:28 Baso % (Auto) 0.4 % (0.0-1.8) 11/27/21 05:28 Lymph # (Auto) 1.3 K/mm3 (1.2-5.4) 11/27/21 05:28 [place] # (Auto) 0.3 K/mm3 (0.0-0.8) 11/27/21 05:28 Eos # (Auto) 0.1 K/mm3 (0.0-0.4) 11/27/21 05:28 Baso # (Auto) 0.0 K/mm3 (0.0-0.1) 11/27/21 05:28 Seg Neutrophils % 65.6 % (40.0-70.0) 11/27/21 05:28 Seg Neutrophils # 3.2 K/mm3 (1.8-7.7) 11/27/21 05:28 PT 13.8 Sec. (12.2-14.9) 11/25/21 22:43 INR 0.96 (0.87-1.13) 11/25/21 22:43 APTT 29.6 Sec. (24.2-36.6) 11/25/21 22:43 Thrombin Time 16.2 Sec. (15.1-19.6) 11/25/21 22:43 Sodium 137 mmol/L (137-145) 11/27/21 05:28 Potassium 4.0 mmol/L (3.6-5.0) 11/27/21 05:28 Chloride 104.4 mmol/L (98-107) 11/27/21 05:28 Carbon Dioxide 20 mmol/L (22-30) L 11/27/21 05:28 Anion Gap 17 mmol/L 11/27/21 05:28 BUN 11 mg/dL (9-20) 11/27/21 05:28 Creatinine 1.0 mg/dL (0.8-1.3) 11/27/21 05:28 Estimated GFR > 60 ml/min 11/27/21 05:28 BUN/Creatinine Ratio 11 % 11/27/21 05:28 Glucose 83 mg/dL (75-100) 11/27/21 05:28 POC Glucose 102 mg/dL (70-105) 11/29/21 16:08 Calcium 9.1 mg/dL (8.4-10.2) 11/27/21 05:28 Total Bilirubin 0.30 mg/dL (0.1-1.2) 11/25/21 22:43 AST 13 units/L (5-40) 11/25/21 22:43 ALT 10 units/L (7-56) 11/25/21 22:43 Alkaline Phosphatase 103 units/L (35-129) 11/25/21 22:43 Total Creatine Kinase 118 units/L (55-170) 11/25/21 22:43 CK-MB (CK-2) 2.5 ng/mL (0.0-4.0) 11/25/21 22:43 CK-MB (CK-2) Rel Index 2.1 (0-4) 11/25/21 22:43 Troponin T < 0.010 ng/mL (0.00-0.029) 11/25/21 22:43 Total Protein 7.0 g/dL (6.3-8.2) 11/25/21 22:43 Albumin 4.0 g/dL (3.9-5) 11/25/21 22:43 Albumin/Globulin Ratio 1.3 % 11/25/21 22:43 Triglycerides 84 mg/dL (2-149) 11/27/21 05:28 Cholesterol 140 mg/dL (50-199) 11/27/21 05:28 LDL Cholesterol Direct 83 mg/dL (50-130) 11/27/21 05:28 HDL Cholesterol 45 mg/dL (40-59) 11/27/21 05:28 Cholesterol/HDL Ratio 3.11 % 11/27/21 05:28 Urine Opiates Screen Presumptive negative 11/25/21 23:18 Urine Methadone Screen Presumptive negative 11/25/21 23:18 Ur Barbiturates Screen Presumptive negative 11/25/21 23:18 Ur Phencyclidine Scrn Presumptive negative 11/25/21 23:18 Ur Amphetamines Screen Presumptive negative 11/25/21 23:18 U Benzodiazepines Scrn Presumptive negative 11/25/21 23:18 Urine Cocaine Screen Presumptive positive 11/25/21 23:18 U Marijuana (THC) Screen Presumptive positive 11/25/21 23:18 Drugs of Abuse Note Disclamer 11/25/21 23:18 Plasma/Serum Alcohol < 0.01 % (0-0.07) 11/25/21 22:43 SARS-CoV-2 (PCR) Negative (Negative) 11/29/21 15:01 [place]/IV: Voiding Method Urinal Active Medications - Current Medications Current Medications: Generic Name Dose Route Start Last Admin Trade Name Freq PRN Reason Stop Dose Admin Acetaminophen 650 mg 11/26/21 00:50 11/28/21 23:46 Acetaminophen 325 Mg Tab PO 650 mg Q4H PRN Administration Pain, Mild (1-3) Albuterol 1 puff 11/26/21 17:00 Albuterol 8.5 Gm Mdi Inhalation IH Q6HRT PRN Shortness Of Breath Aspirin 325 mg 11/26/21 10:00 11/29/21 09:18 Aspirin 325 Mg Tab PO 325 mg QDAY BLACK Administration Atorvastatin Calcium 40 mg 11/26/21 22:00 11/28/21 21:12 Atorvastatin 40 Mg Tab PO 40 mg QHS BLACK Administration Bisacodyl 10 mg 11/26/21 00:50 Bisacodyl 10 Mg Rect Supp MS QDAY PRN Constipation Dextrose 0 ml 11/26/21 01:11 Dextrose 10% *Hypoglycemia IV DIRECT PRN Hypoglycemia Protocol Heparin Sodium (Porcine) 5,000 unit 11/26/21 06:00 11/29/21 14:37 Heparin 5,000 Unit/1 Ml Vial SUB-Q 5,000 unit Q8HR BLACK Administration Hydralazine HCl 10 mg 11/26/21 02:38 11/28/21 23:46 Hydralazine 20 Mg/1 Ml Inj IV 10 mg Q4HR PRN Administration Hypertension Sodium Chloride 1,000 mls @ 75 mls/hr 11/27/21 12:15 11/29/21 05:57 Nacl 0.9% 1000 Ml IV 75 mls/hr DIRECT BLACK Administration Insulin Human Lispro 0 unit 11/26/21 07:30 11/29/21 20:01 Insulin Lispro 100 Unit/Ml SUB-Q Not Given ACHS BLACK Protocol Ipratropium [place] 0.5 mg 11/26/21 20:00 11/29/21 14:00 Ipratropium 0.02% Nebu 2.5 Ml IH 0.5 mg TIDRT BLACK Administration Magnesium Hydroxide 30 ml 11/26/21 00:50 Magnesium Hydroxide (Mom) Oral Liqd Udc PO Q4H PRN Constipation Metoclopramide HCl 10 mg 11/26/21 00:50 Metoclopramide 10 Mg Tab PO Q6H PRN Nausea And Vomiting Morphine Sulfate 2 mg 11/26/21 00:50 11/27/21 09:32 Morphine 2 Mg/1 Ml Inj IV 2 mg Q4H PRN Administration Pain, Moderate (4-6) Morphine Sulfate 4 mg 11/26/21 00:50 Morphine 4 Mg/1 Ml Inj IV Q4H PRN Pain , Severe (7-10) Ondansetron HCl 4 mg 11/26/21 00:50 11/27/21 12:29 Ondansetron 4 Mg/2 Ml Inj IV 4 mg Q8H PRN Administration Nausea And Vomiting Promethazine HCl 25 mg 11/26/21 00:50 Promethazine 25 Mg Rect Supp MS Q6H PRN Nausea And Vomiting Sodium Chloride 10 ml 11/26/21 10:00 11/29/21 09:19 Sodium Chloride 0.9% 10 Ml Flush Syringe IV 10 ml BID BLACK Administration Sodium Chloride 10 ml 11/26/21 00:50 11/27/21 13:53 Sodium Chloride 0.9% 10 Ml Flush Syringe IV 10 ml PRN PRN Administration LINE FLUSH
[2021-11-29] MEDS: ACETAMINOPHEN 325 MG TAB PO PRN (22:20)
[2021-11-30] MEDS: hydrALAZINE 20 MG/1 ML INJ IV PRN ×2 (07:00→07:28)
[2021-11-30] MEDS: HEPARIN 5,000 UNIT/1 ML VIAL SUB-Q SCH ×4 (07:05→23:00)
[2021-11-30] MEDS: IPRATROPIUM 0.02% NEBU 2.5 ML IH SCH ×3 (08:29→20:19)
[2021-11-30] MEDS: INSULIN LISPRO 100 UNIT/ML SUB-Q SCH ×3 (09:20→22:00)
[2021-11-30] MEDS: NIFEdipine XL 30 MG TAB PO SCH ×2 (11:00→23:00)
[2021-11-30] MEDS: MORPHINE 2 MG/1 ML INJ IV PRN (11:00)
[2021-11-30] MEDS: ASPIRIN 325 MG TAB PO SCH (11:00)
[2021-11-30] MEDS: ONDANSETRON 4 MG/2 ML INJ IV PRN (11:01)
--- NOTE | 2021-11-30 11:57 | Progress Note ---
Assessment and Plan Assessment and Plan 61-year-old -[place] male with known history of hypertension, diabetes mellitus, tobacco and marijuana abuse presenting to the emergency room today via EMS with complaints of headache, unsteady gait and slurred speech. Last well-known time was about 12 noon today when he was last seen by his sister. Patient had gone to his room to sleep at that time but later woke up with slurred speech and having unsteady gait. Patient admits to using marijuana last night. There has been no history of dizziness and no diaphoresis. No fever or chills, no chest pain or shortness of breath, no nausea vomiting and no abdominal pain. - Patient Problems #Acute left side weakness r/o Acute CVA (cerebrovascular accident) - left side weakness ,NIH#5 -started on ASA and Lipitor -PT/ST evaluate -CT brain is remarkable for old right thalamic infarct -MRI brain is remarkable for right semiovale lacunar infarct -CTA brain and neck are unremarkable -echo is with LVH with Ef#50-55% -LDL is # 83 -Need PT /st and rehabilitation evaluation # Complain today of CP none specific -pain increase with pressure -PCP evalaution -DW pt. nurse # HT poorly controlled - need better control of BP<150/80 -comply with medications # Cocaine abuse -Patient counseled against cocaine abuse. # Diabetes -Patient placed on sliding scale insulin. We will monitor Accu-Cheks. # Hypertension -We will resume routine home medications and monitor vital signs closely. # Lung mass -awaiting CT chest -followed by pulmonary -Probable lung mass on the chest x-ray. -Recommendations to follow-up with CT chest with contrast. # DVT prophylaxis -Placed on subcutaneous heparin. # Full code status -Patient is full code. Plan 1- maintain med 2-Rehabilitation/PT will follow as needed Subjective Date of service: 11/30/21 Interval history: left side weakness is unchanged BP is 158/98 MRI brain is noted right 1.5 cm centrum semiovale lacunar infarct awaiting CT chest followed by Pulmonary pt. is complain of chest pain in right lateral to sternum with slight increase pain to pressure, Objective - Vital Sign Vital Signs - 12hr 11/30/21 11/30/21 11/30/21 00:00 04:53 07:39 Temperature 98.3 F 98.8 F Pulse Rate 80 82 Pulse Rate [ Anterior] Respiratory 17 16 18 Rate Respiratory Rate [Anterior] Blood Pressure 173/94 158/98 O2 Sat by Pulse 98 98 93 Oximetry 11/30/21 11/30/21 08:29 08:33 Temperature Pulse Rate Pulse Rate [ 89 Anterior] Respiratory Rate Respiratory 18 Rate [Anterior] Blood Pressure O2 Sat by Pulse 94 Oximetry - General Apperance Constitutional: comfortable - EENT EENT: PERRL, mucous membranes moist - Respiratory Respiratory: lungs clear, rhonchi - Cardiovascular Cardiovascular: regular rate, normal S1, normal S2 Extremities: no peripheral edema bilat, no clubbing, cyanosis - Gastrointestinal Gastrointestinal: normoactive bowel sounds - Integumentary Integumentary: normal - Neurologic Cranial nerve examination: PERRL, EOMI, facial droop Speech examination: intact Detailed motor examination: other (left is 3/5 upper and lower, planter is down no sensory deficit , gait not done) - Laboratory Findings CBC and BMP: 11/27/21 05:28 11/27/21 05:28 Abnormal Lab Findings: Abnormal Labs 11/25/21 11/27/21 11/27/21 22:43 05:28 05:28 MCV 96 H Plt Count 123 L 109 L Lymph # (Auto) 0.9 L Seg Neutrophils % 71.9 H Carbon Dioxide 20 L POC Glucose 11/27/21 11/27/21 11/27/21 07:37 15:51 17:48 MCV Plt Count Lymph # (Auto) Seg Neutrophils % Carbon Dioxide POC Glucose 107 H 220 H 163 H 11/27/21 11/27/21 11/28/21 20:29 21:10 11:59 MCV Plt Count Lymph # (Auto) Seg Neutrophils % Carbon Dioxide POC Glucose 54 L 132 H 117 H 11/28/21 11/28/21 11/29/21 16:08 19:59 11:17 MCV Plt Count Lymph # (Auto) Seg Neutrophils % Carbon Dioxide POC Glucose 108 H 124 H 111 H
--- NOTE | 2021-11-30 13:34 | Event Note ---
Date: 11/30/21 Patient with a spiculated left upper lobe pulmonary nodule adjacent to a bulla, and large masses in the right hilum and precarinal regions both of which are abutting the bronchial tree. Given the patient's underlying lung disease, and association of these masses with great vessels, the patient would benefit from endobronchial ultrasound-guided biopsy as the safest approach. Given his significant lung disease, CT-guided biopsy would place the patient at significant risk for complications. His endobronchial biopsy can be performed as an outpatient.
--- NOTE | 2021-11-30 13:47 | Progress Note ---
Assessment and Plan 61 y/o male admitted with neurologic complaints, found to have abnormal CXR on screening with known obstructive lung disease. 11/30/21: Agree with IR assessment and recs. Did not recommend EBUS as this is not available here. Patient can follow up with [facility] as outpatient for possible EBUS. His calicifications in the mediastinum make me to believe this is a chronic illness, sarcoid, old TB, etc, however the lesion in the anterior is more worrisome. Please arrange follow up with [facility] for EBUS as they do this as an outpatient. Thanks. 11/29/21: No new recs, please see below. If biopsy not done or attempted, could consider PET scan. 11/28/21: this lesion is suspicious for malignancy given location and c haracteristics. However I feel the risks of CT guided biopsy (not able to get to it via bronch) are higher than the benefits given the degree of emphysema. Can have IR at least evaluate the CT to see if the they feel the could get the lesion safely. Will continue to follow. 1. Will order CT of chest today noncontrast 2. Smoking cessation 3. Home COPD regimen. Subjective Date of service: 11/30/21 Interval history: Appreciate IR evaluation and help with recs. EBUS is not available at this institution. Objective Vital Signs - 12hr 11/30/21 11/30/21 11/30/21 04:53 07:39 08:29 Temperature 98.3 F 98.8 F Pulse Rate 80 82 Pulse Rate [ 89 Anterior] Respiratory 16 18 Rate Respiratory 18 Rate [Anterior] Blood Pressure 173/94 158/98 O2 Sat by Pulse 98 93 Oximetry 11/30/21 11/30/21 11/30/21 08:33 10:00 11:20 Temperature 98.7 F Pulse Rate 80 104 H Pulse Rate [ Anterior] Respiratory 18 Rate Respiratory Rate [Anterior] Blood Pressure 167/95 O2 Sat by Pulse 94 93 Oximetry 11/30/21 12:00 Temperature Pulse Rate Pulse Rate [ Anterior] Respiratory Rate Respiratory Rate [Anterior] Blood Pressure O2 Sat by Pulse 98 Oximetry Gastrointestinal: normoactive bowel sounds Integumentary: normal CBC and BMP: 11/27/21 05:28 11/27/21 05:28 ABG, PT/INR, D-dimer: PT/INR, D-dimer PT 13.8 Sec. (12.2-14.9) 11/25/21 22:43 INR 0.96 (0.87-1.13) 11/25/21 22:43 Abnormal lab findings: Abnormal Labs 11/25/21 11/27/21 11/27/21 22:43 05:28 05:28 MCV 96 H Plt Count 123 L 109 L Lymph # (Auto) 0.9 L Seg Neutrophils % 71.9 H Carbon Dioxide 20 L POC Glucose 11/27/21 11/27/21 11/27/21 07:37 15:51 17:48 MCV Plt Count Lymph # (Auto) Seg Neutrophils % Carbon Dioxide POC Glucose 107 H 220 H 163 H 11/27/21 11/27/21 11/28/21 20:29 21:10 11:59 MCV Plt Count Lymph # (Auto) Seg Neutrophils % Carbon Dioxide POC Glucose 54 L 132 H 117 H 11/28/21 11/28/21 11/29/21 16:08 19:59 11:17 MCV Plt Count Lymph # (Auto) Seg Neutrophils % Carbon Dioxide POC Glucose 108 H 124 H 111 H
[2021-11-30] MEDS: hydrALAZINE 25 MG TAB PO SCH ×3 (14:38→23:34)
--- NOTE | 2021-11-30 18:54 | Progress Note ---
Assessment and Plan Assessment and plan: --History of lung mass; Patient is asymptomatic, Pulmonary following, may not be amenable for bronchoscopic biopsy Recommended to check with IR for possible CT-guided biopsy. Of the lung mass. IR Dr. Fry has evaluated the patient in consultation; felt CT-guided biopsy is too risky Given the patient's underlying lung disease, and association of these masses with great vessels, the patient would benefit from endobronchial ultrasound- guided biopsy as the safest approach. Given his significant lung disease, CT- guided biopsy would place the patient at significant risk for complications. His endobronchial biopsy can be performed as an outpatient. Patient will be discharged tomorrow if stable and set up for outpatient follow- up with [facility] [facility][as recommended by pulmonary] Acute strokelike symptoms ,patient was evaluated by tele-neurology and found him not to be a TPA candidate. --Acute CVA; Not a candidate for TPA Aspirin and statin Follow neuro work-up, PT OT rehab Neuro work-up; CT of the head shows sequela of prior infarct in the right thalamus, chronic microvascular ischemic changes. CTA of the head showed no acute abnormality. CTA of the neck showed no significant abnormality. UDS was positive for marijuana and cocaine. MRI brain; acute/recent 1.5 cm ischemic injury in the right centrum semiovale. Underlying chronic and age-related changes --History of cocaine use; Counseled and strongly advised to quit recreational drug use --Type II diabetes mellitus ; Accu-Chek, sliding scale coverage, ADA diet Long-acting insulin as needed, A1c 5.22 years ago Closely monitor --Hypertension; Moderate control, continue current antihypertensives As needed medications --Dyslipidemia; Low-cholesterol diet, statin --DVT prophylaxis; subcu heparin DC planning per case management PT recommended subacute rehab Brief history and daily hospital course: 61-year-old -[place] male with known history of hypertension, diabetes mellitus, tobacco and marijuana abuse presenting to the emergency room via EMS with complaints of headache, unsteady gait and slurred speech. Chest x-ray was concerning for right paratracheal and right hilar adenopathy/mass. There was suggestion of a pulmonary mass in the left upper lobe adjacent to the aortic knob. 11/26/2021. Follow-up echocardiogram and MRI brain. Await neurology consultation. Consult pulmonary for further evaluation 11/27/2021. Await MRI brain and echocardiogram results. Neurology and pulmonary consultations pending. Check lipid panel. Continue secondary prevention with aspirin and Lipitor. Continue PT/OT/ST. 11/28/2021; PT recommended subacute rehab, currently on liquid diet, advance as tolerated DC planning per case management 11/29/2021; will check with interventional radiologist for CT-guided biopsy. 11/30/2021; interventional radiologist Dr. Fry has evaluated the patient, recommended Endobronchial ultrasound-guided lung biopsy would be the safest, automotive light mechanic Dr. Estevez Suggested to refer the patient to [facility] as outpatient upon discharge Possible discharge home tomorrow if stable Hospitalist Physical - Constitutional Vitals: Temp Pulse Resp BP Pulse Ox 98.0 F 95 H 18 171/93 98 11/30/21 17:42 11/30/21 17:42 11/30/21 14:44 11/30/21 17:42 11/30/21 12:00 General appearance: Present: no acute distress, cachectic HEART Score - HEART Score Troponin: Troponin T < 0.010 ng/mL (0.00-0.029) 11/25/21 22:43 Results - Labs CBC & Chem 7: 11/27/21 05:28 11/27/21 05:28 Labs: Laboratory Last Values WBC 4.9 K/mm3 (4.5-11.0) 11/27/21 05:28 RBC 4.26 M/mm3 (3.65-5.03) 11/27/21 05:28 Hgb 13.3 gm/dl (11.8-15.2) 11/27/21 05:28 Hct 40.0 % (35.5-45.6) 11/27/21 05:28 MCV 94 fl (84-94) 11/27/21 05:28 MCH 31 pg (28-32) 11/27/21 05:28 MCHC 33 % (32-34) 11/27/21 05:28 RDW 14.0 % (13.2-15.2) 11/27/21 05:28 Plt Count 109 K/mm3 (140-440) L 11/27/21 05:28 Lymph % (Auto) 25.5 % (13.4-35.0) 11/27/21 05:28 [place] % (Auto) 6.7 % (0.0-7.3) 11/27/21 05:28 Eos % (Auto) 1.8 % (0.0-4.3) 11/27/21 05:28 Baso % (Auto) 0.4 % (0.0-1.8) 11/27/21 05:28 Lymph # (Auto) 1.3 K/mm3 (1.2-5.4) 11/27/21 05:28 [place] # (Auto) 0.3 K/mm3 (0.0-0.8) 11/27/21 05:28 Eos # (Auto) 0.1 K/mm3 (0.0-0.4) 11/27/21 05:28 Baso # (Auto) 0.0 K/mm3 (0.0-0.1) 11/27/21 05:28 Seg Neutrophils % 65.6 % (40.0-70.0) 11/27/21 05:28 Seg Neutrophils # 3.2 K/mm3 (1.8-7.7) 11/27/21 05:28 PT 13.8 Sec. (12.2-14.9) 11/25/21 22:43 INR 0.96 (0.87-1.13) 11/25/21 22:43 APTT 29.6 Sec. (24.2-36.6) 11/25/21 22:43 Thrombin Time 16.2 Sec. (15.1-19.6) 11/25/21 22:43 Sodium 137 mmol/L (137-145) 11/27/21 05:28 Potassium 4.0 mmol/L (3.6-5.0) 11/27/21 05:28 Chloride 104.4 mmol/L (98-107) 11/27/21 05:28 Carbon Dioxide 20 mmol/L (22-30) L 11/27/21 05:28 Anion Gap 17 mmol/L 11/27/21 05:28 BUN 11 mg/dL (9-20) 11/27/21 05:28 Creatinine 1.0 mg/dL (0.8-1.3) 11/27/21 05:28 Estimated GFR > 60 ml/min 11/27/21 05:28 BUN/Creatinine Ratio 11 % 11/27/21 05:28 Glucose 83 mg/dL (75-100) 11/27/21 05:28 POC Glucose 122 mg/dL (70-105) H 11/30/21 16:28 Calcium 9.1 mg/dL (8.4-10.2) 11/27/21 05:28 Total Bilirubin 0.30 mg/dL (0.1-1.2) 11/25/21 22:43 AST 13 units/L (5-40) 11/25/21 22:43 ALT 10 units/L (7-56) 11/25/21 22:43 Alkaline Phosphatase 103 units/L (35-129) 11/25/21 22:43 Total Creatine Kinase 118 units/L (55-170) 11/25/21 22:43 CK-MB (CK-2) 2.5 ng/mL (0.0-4.0) 11/25/21 22:43 CK-MB (CK-2) Rel Index 2.1 (0-4) 11/25/21 22:43 Troponin T < 0.010 ng/mL (0.00-0.029) 11/25/21 22:43 Total Protein 7.0 g/dL (6.3-8.2) 11/25/21 22:43 Albumin 4.0 g/dL (3.9-5) 11/25/21 22:43 Albumin/Globulin Ratio 1.3 % 11/25/21 22:43 Triglycerides 84 mg/dL (2-149) 11/27/21 05:28 Cholesterol 140 mg/dL (50-199) 11/27/21 05:28 LDL Cholesterol Direct 83 mg/dL (50-130) 11/27/21 05:28 HDL Cholesterol 45 mg/dL (40-59) 11/27/21 05:28 Cholesterol/HDL Ratio 3.11 % 11/27/21 05:28 Urine Opiates Screen Presumptive negative 11/25/21 23:18 Urine Methadone Screen Presumptive negative 11/25/21 23:18 Ur Barbiturates Screen Presumptive negative 11/25/21 23:18 Ur Phencyclidine Scrn Presumptive negative 11/25/21 23:18 Ur Amphetamines Screen Presumptive negative 11/25/21 23:18 U Benzodiazepines Scrn Presumptive negative 11/25/21 23:18 Urine Cocaine Screen Presumptive positive 11/25/21 23:18 U Marijuana (THC) Screen Presumptive positive 11/25/21 23:18 Drugs of Abuse Note Disclamer 11/25/21 23:18 Plasma/Serum Alcohol < 0.01 % (0-0.07) 11/25/21 22:43 SARS-CoV-2 (PCR) Negative (Negative) 11/29/21 15:01 [place]/IV: Voiding Method Condom Catheter Active Medications - Current Medications Current Medications: Generic Name Dose Route Start Last Admin Trade Name Freq PRN Reason Stop Dose Admin Acetaminophen 650 mg 11/26/21 00:50 11/29/21 22:20 Acetaminophen 325 Mg Tab PO 650 mg Q4H PRN Administration Pain, Mild (1-3) Albuterol 1 puff 11/26/21 17:00 Albuterol 8.5 Gm Mdi Inhalation IH Q6HRT PRN Shortness Of Breath Aspirin 325 mg 11/26/21 10:00 11/30/21 11:00 Aspirin 325 Mg Tab PO 325 mg QDAY BLACK Administration Atorvastatin Calcium 40 mg 11/26/21 22:00 11/29/21 22:02 Atorvastatin 40 Mg Tab PO 40 mg QHS BLACK Administration Bisacodyl 10 mg 11/26/21 00:50 Bisacodyl 10 Mg Rect Supp IL QDAY PRN Constipation Dextrose 0 ml 11/26/21 01:11 Dextrose 10% *Hypoglycemia IV DIRECT PRN Hypoglycemia Protocol Heparin Sodium (Porcine) 5,000 unit 11/26/21 06:00 11/30/21 14:39 Heparin 5,000 Unit/1 Ml Vial SUB-Q 5,000 unit Q8HR BLACK Administration Hydralazine HCl 10 mg 11/26/21 02:38 11/30/21 07:28 Hydralazine 20 Mg/1 Ml Inj IV 10 mg Q4HR PRN Administration Hypertension Hydralazine HCl 25 mg 11/30/21 14:00 11/30/21 14:38 Hydralazine 25 Mg Tab PO 25 mg Q8HR BLACK Administration Sodium Chloride 1,000 mls @ 75 mls/hr 11/27/21 12:15 11/29/21 21:43 Nacl 0.9% 1000 Ml IV 75 mls/hr DIRECT BLACK Administration Insulin Human Lispro 0 unit 11/26/21 07:30 11/30/21 17:38 Insulin Lispro 100 Unit/Ml SUB-Q Not Given ACHS BLACK Protocol Ipratropium Lejunior 0.5 mg 11/26/21 20:00 11/30/21 14:43 Ipratropium 0.02% Nebu 2.5 Ml IH 0.5 mg TIDRT BLACK Administration Magnesium Hydroxide 30 ml 11/26/21 00:50 Magnesium Hydroxide (Mom) Oral Liqd Udc PO Q4H PRN Constipation Metoclopramide HCl 10 mg 11/26/21 00:50 Metoclopramide 10 Mg Tab PO Q6H PRN Nausea And Vomiting Morphine Sulfate 2 mg 11/26/21 00:50 11/30/21 11:00 Morphine 2 Mg/1 Ml Inj IV 2 mg Q4H PRN Administration Pain, Moderate (4-6) Morphine Sulfate 4 mg 11/26/21 00:50 Morphine 4 Mg/1 Ml Inj IV Q4H PRN Pain , Severe (7-10) Nifedipine 30 mg 11/30/21 10:00 11/30/21 11:00 Nifedipine Xl 30 Mg Tab PO 30 mg Q12HR BLACK Administration Ondansetron HCl 4 mg 11/26/21 00:50 11/30/21 11:01 Ondansetron 4 Mg/2 Ml Inj IV 4 mg Q8H PRN Administration Nausea And Vomiting Promethazine HCl 25 mg 11/26/21 00:50 Promethazine 25 Mg Rect Supp IL Q6H PRN Nausea And Vomiting Sodium Chloride 10 ml 11/26/21 10:00 11/30/21 11:00 Sodium Chloride 0.9% 10 Ml Flush Syringe IV 10 ml BID BLACK Administration Sodium Chloride 10 ml 11/26/21 00:50 11/27/21 13:53 Sodium Chloride 0.9% 10 Ml Flush Syringe IV 10 ml PRN PRN Administration LINE FLUSH
[2021-12-01] MEDS: HEPARIN 5,000 UNIT/1 ML VIAL SUB-Q SCH ×2 (07:00→14:11)
[2021-12-01] MEDS: hydrALAZINE 25 MG TAB PO SCH ×2 (07:00→16:12)
[2021-12-01 07:47] VITALS: BP 159/88
[2021-12-01] MEDS: INSULIN LISPRO 100 UNIT/ML SUB-Q SCH ×2 (08:11→12:10)
[2021-12-01] MEDS: IPRATROPIUM 0.02% NEBU 2.5 ML IH SCH ×2 (08:19→15:20)
[2021-12-01] MEDS: ASPIRIN 325 MG TAB PO SCH (11:06)
[2021-12-01] MEDS: NIFEdipine XL 30 MG TAB PO SCH (11:08)
--- NOTE | 2021-12-01 11:24 | Progress Note ---
Assessment and Plan Assessment and Plan 61-year-old -[place] male with known history of hypertension, diabetes mellitus, tobacco and marijuana abuse presenting to the emergency room today via EMS with complaints of headache, unsteady gait and slurred speech. Last well-known time was about 12 noon today when he was last seen by his sister. Patient had gone to his room to sleep at that time but later woke up with slurred speech and having unsteady gait. Patient admits to using marijuana last night. There has been no history of dizziness and no diaphoresis. No fever or chills, no chest pain or shortness of breath, no nausea vomiting and no abdominal pain. - Patient Problems #Acute left side weakness r/o Acute CVA (cerebrovascular accident) - left side weakness ,NIH#5 -started on ASA and Lipitor -PT/ST evaluate -CT brain is remarkable for old right thalamic infarct -MRI brain is remarkable for right semiovale lacunar infarct -CTA brain and neck are unremarkable -echo is with LVH with Ef#50-55% -LDL is # 83 -Need PT /st and rehabilitation evaluation # Complain today of CP none specific -pain increase with pressure -PCP evalaution -DW pt. nurse # HT poorly controlled - need better control of BP<150/80 -comply with medications # Cocaine abuse -Patient counseled against cocaine abuse. # Diabetes -Patient placed on sliding scale insulin. We will monitor Accu-Cheks. # Hypertension -We will resume routine home medications and monitor vital signs closely. # Lung mass - CT chest noted -followed by pulmonary -awaiting biopsy will get MRI brain with gd r/o met. -Probable lung mass on the chest x-ray. -Recommendations to follow-up with CT chest with contrast. # DVT prophylaxis -Placed on subcutaneous heparin. # Full code status -Patient is full code. Plan 1- maintain med 2-Rehabilitation/PT 3- MRI brain with qd 4- awaiting lung biopsy will follow as needed Subjective Date of service: 12/01/21 Interval history: left side weakness is unchanged BP is 158/98 MRI brain is noted right 1.5 cm centrum semiovale lacunar infarct CT chest suggestive of lymphadenopathy and mass lesion , await biopsy pt. is complain of chest pain in right lateral to sternum with slight increase pain to pressure, recommend as above BP#159/88 repeat MRI brain with gd r/o met. Objective - Vital Sign Vital Signs - 12hr 12/01/21 12/01/21 12/01/21 00:00 04:53 07:46 Temperature 98.2 F 98.3 F Pulse Rate 96 H 98 H Pulse Rate [ Anterior] Respiratory 18 16 Rate Respiratory Rate [Anterior] Blood Pressure 165/111 159/88 O2 Sat by Pulse 98 97 95 Oximetry 12/01/21 12/01/21 08:19 08:23 Temperature Pulse Rate Pulse Rate [ 108 H Anterior] Respiratory Rate Respiratory 20 Rate [Anterior] Blood Pressure O2 Sat by Pulse 94 Oximetry - Laboratory Findings CBC and BMP: 11/27/21 05:28 11/27/21 05:28 Abnormal Lab Findings: Abnormal Labs 11/25/21 11/27/21 11/27/21 22:43 05:28 05:28 MCV 96 H Plt Count 123 L 109 L Lymph # (Auto) 0.9 L Seg Neutrophils % 71.9 H Carbon Dioxide 20 L POC Glucose 11/27/21 11/27/21 11/27/21 07:37 15:51 17:48 MCV Plt Count Lymph # (Auto) Seg Neutrophils % Carbon Dioxide POC Glucose 107 H 220 H 163 H 11/27/21 11/27/21 11/28/21 20:29 21:10 11:59 MCV Plt Count Lymph # (Auto) Seg Neutrophils % Carbon Dioxide POC Glucose 54 L 132 H 117 H 11/28/21 11/28/21 11/29/21 16:08 19:59 11:17 MCV Plt Count Lymph # (Auto) Seg Neutrophils % Carbon Dioxide POC Glucose 108 H 124 H 111 H 11/30/21 11/30/21 11:16 16:28 MCV Plt Count Lymph # (Auto) Seg Neutrophils % Carbon Dioxide POC Glucose 189 H 122 H
--- NOTE | 2021-12-01 11:45 | Progress Note ---
Assessment and Plan 61 y/o male admitted with neurologic complaints, found to have abnormal CXR on screening with known obstructive lung disease. 12/01/21: No objection to discharge. WIll sign off. 11/30/21: Agree with IR assessment and recs. Did not recommend EBUS as this is not available here. Patient can follow up with [facility] as outpatient for possible EBUS. His calicifications in the mediastinum make me to believe this is a chronic illness, sarcoid, old TB, etc, however the lesion in the anterior is more worrisome. Please arrange follow up with [facility] for EBUS as they do this as an outpatient. Thanks. 11/29/21: No new recs, please see below. If biopsy not done or attempted, could consider PET scan. 11/28/21: this lesion is suspicious for malignancy given location and characteristics. However I feel the risks of CT guided biopsy (not able to get to it via bronch) are higher than the benefits given the degree of emphysema. Can have IR at least evaluate the CT to see if the they feel the could get the lesion safely. Will continue to follow. 1. Will order CT of chest today noncontrast 2. Smoking cessation 3. Home COPD regimen. Subjective Date of service: 12/01/21 Interval history: Per IMS being discharged today. Gave them Dr. Sanderson's name for referral to [facility] for EBUS Objective Vital Signs - 12hr 12/01/21 12/01/21 12/01/21 00:00 04:53 07:46 Temperature 98.2 F 98.3 F Pulse Rate 96 H 98 H Pulse Rate [ Anterior] Respiratory 18 16 Rate Respiratory Rate [Anterior] Blood Pressure 165/111 159/88 O2 Sat by Pulse 98 97 95 Oximetry 12/01/21 12/01/21 08:19 08:23 Temperature Pulse Rate Pulse Rate [ 108 H Anterior] Respiratory Rate Respiratory 20 Rate [Anterior] Blood Pressure O2 Sat by Pulse 94 Oximetry Gastrointestinal: normoactive bowel sounds Integumentary: normal CBC and BMP: 11/27/21 05:28 11/27/21 05:28 ABG, PT/INR, D-dimer: PT/INR, D-dimer PT 13.8 Sec. (12.2-14.9) 11/25/21 22:43 INR 0.96 (0.87-1.13) 11/25/21 22:43 Abnormal lab findings: Abnormal Labs 11/25/21 11/27/21 11/27/21 22:43 05:28 05:28 MCV 96 H Plt Count 123 L 109 L Lymph # (Auto) 0.9 L Seg Neutrophils % 71.9 H Carbon Dioxide 20 L POC Glucose 11/27/21 11/27/21 11/27/21 07:37 15:51 17:48 MCV Plt Count Lymph # (Auto) Seg Neutrophils % Carbon Dioxide POC Glucose 107 H 220 H 163 H 11/27/21 11/27/21 11/28/21 20:29 21:10 11:59 MCV Plt Count Lymph # (Auto) Seg Neutrophils % Carbon Dioxide POC Glucose 54 L 132 H 117 H 11/28/21 11/28/21 11/29/21 16:08 19:59 11:17 MCV Plt Count Lymph # (Auto) Seg Neutrophils % Carbon Dioxide POC Glucose 108 H 124 H 111 H 11/30/21 11/30/21 11:16 16:28 MCV Plt Count Lymph # (Auto) Seg Neutrophils % Carbon Dioxide POC Glucose 189 H 122 H
--- NOTE | 2021-12-01 11:50 | Discharge Summary ---
Providers - Providers Date of Admission: 11/26/21 00:50 Date of discharge: 12/01/21 Attending physician: BILLIE NEW 11/26/21 00:50 Consult to Dietitian/Nutrition [CONS] Routine Physician Instructions: Reason For Exam: Reason for Consult: Nutrition Recommendations Reason for Consult: Diet education Consult to Physician [CONS] Routine Comment: Consulting Provider: PRICILLA PERDOMO Physician Instructions: Reason For Exam: left sided hemiparesis Occupational Therapy Evaluate and Treat [CONS] Routine Comment: Reason For Exam: Neuro deficits Physical Therapy Evaluation and Treat [CONS] Routine Comment: Reason For Exam: Neuro deficits 11/26/21 01:00 Speech Therapy Evaluation and Treat [CONS] Routine Reason For Exam: swallow eval 11/26/21 11:02 Consult to Physician [CONS] Routine Comment: Consulting Provider: NICHO ESTEVEZ Physician Instructions: Reason For Exam: pulm mass 11/30/21 12:55 Consult to Physician [CONS] Routine Comment: Consulting Provider: SHAMEKA FRY Physician Instructions: Reason For Exam: CT-guided biopsy left lung mass Primary care physician: SARAH ASHER Hospitalization Condition: Stable Pertinent studies: CT of the head shows sequela of prior infarct in the right thalamus, chronic microvascular ischemic changes. CTA of the head showed no acute abnormality. CTA of the neck showed no significant abnormality. UDS was positive for marijuana and cocaine. MRI brain; acute/recent 1.5 cm ischemic injury in the right centrum semiovale. Underlying chronic and age-related changes Hospital course: --History of lung mass; Patient is asymptomatic, Pulmonary following, may not be amenable for bronchoscopic biopsy Recommended to check with IR for possible CT-guided biopsy. Of the lung mass. IR Dr. Fry has evaluated the patient in consultation; felt CT-guided biopsy is too risky Given the patient's underlying lung disease, and association of these masses with great vessels, the patient would benefit from endobronchial ultrasound- guided biopsy as the safest approach. Given his significant lung disease, CT- guided biopsy would place the patient at significant risk for complications. His endobronchial biopsy can be performed as an outpatient. Patient will be discharged tomorrow if stable and set up for outpatient follow- up with [facility] [place] [facility] development project manager[as recommended by pulmonary] Acute strokelike symptoms ,patient was evaluated by tele-neurology and found him not to be a TPA candidate. --Acute CVA; Not a candidate for TPA Aspirin and statin Follow neuro work-up, PT OT rehab Neuro work-up; CT of the head shows sequela of prior infarct in the right thalamus, chronic microvascular ischemic changes. CTA of the head showed no acute abnormality. CTA of the neck showed no significant abnormality. UDS was positive for marijuana and cocaine. MRI brain; acute/recent 1.5 cm ischemic injury in the right centrum semiovale. Underlying chronic and age-related changes --History of cocaine use; Counseled and strongly advised to quit recreational drug use --Type II diabetes mellitus ; Accu-Chek, sliding scale coverage, ADA diet Long-acting insulin as needed, A1c 5.22 years ago Closely monitor --Hypertension; Moderate control, continue current antihypertensives As needed medications --Dyslipidemia; Low-cholesterol diet, statin --DVT prophylaxis; subcu heparin DC planning per case management PT recommended subacute rehab Brief history and daily hospital course: 61-year-old -[place] male with known history of hypertension, diabetes mellitus, tobacco and marijuana abuse presenting to the emergency room via EMS with complaints of headache, unsteady gait and slurred speech. Chest x-ray was concerning for right paratracheal and right hilar adenopathy/mass. There was suggestion of a pulmonary mass in the left upper lobe adjacent to the aortic knob. 11/26/2021. Follow-up echocardiogram and MRI brain. Await neurology consultation. Consult pulmonary for further evaluation 11/27/2021. Await MRI brain and echocardiogram results. Neurology and pulmonary consultations pending. Check lipid panel. Continue secondary prevention with aspirin and Lipitor. Continue PT/OT/ST. 11/28/2021; PT recommended subacute rehab, currently on liquid diet, advance as tolerated DC planning per case management 11/29/2021; will check with interventional radiologist for CT-guided biopsy. 11/30/2021; interventional radiologist Dr. Fry has evaluated the patient, recommended Endobronchial ultrasound-guided lung biopsy would be the safest, database development project manager Dr. Estevez Suggested to refer the patient to [facility] [place] [facility] development project manager as outpatient upon d ischarge Possible discharge home tomorrow if stable Disposition: 03 ASSISTED FACILITY Final Discharge Diagnosis (Prints w/discharge instructions): Left lung mass/follow-up with [place] database development project manager for biopsy. Acute CVA with residual weakness. Right-sided hemiparesis. Type 2 diabetes mellitus. Hypertension. Dyslipidemia. History of cocaine use. History of COPD Time spent for discharge: 40 minutes Core Measure Documentation - Palliative Care Palliative Care/ Comfort Measures: Not Applicable - Core Measures Any of the following diagnoses?: stroke - Stroke Discharge Requirements Statin for LDL = or >70 mg/dl on DC: Yes Anticoag for atrial fib/atrial flutter: No Reason for no anticoag for AF/F on DC: Not Indicated (No A. fib or a flutter) Antithrombotic for ischemic stroke: Yes Exam - Constitutional Vitals: Temp Pulse Resp BP Pulse Ox 98.3 F 108 H 20 159/88 94 12/01/21 07:46 12/01/21 08:19 12/01/21 08:19 12/01/21 07:46 12/01/21 08:23 General appearance: Present: no acute distress, well-nourished - EENT Eyes: Present: PERRL, EOM intact - Neck Neck: Present: supple, normal ROM - Respiratory Respiratory effort: normal Respiratory: bilateral: diminished, negative: rales, rhonchi, wheezing - Cardiovascular Rhythm: regular Heart Sounds: Present: S1 & S2 - Extremities Extremities: no ischemia, No edema - Abdominal General gastrointestinal: Present: soft, non-tender, non-distended, normal bowel sounds - Integumentary Integumentary: Present: clear, warm - Musculoskeletal Musculoskeletal: right sided weakness - Psychiatric Psychiatric: appropriate mood/affect, cooperative - Neurologic Neurologic: moves all extremities (Right-sided weakness, slow speech) Plan Activity: advance as tolerated, fall precautions Diet: other (Mechanical soft diet advance as tolerated/aspiration precautions) Special Instructions: physical therapy, occupational therapy Additional Instructions: If you have worsening symptoms contact MD or go to the nearest emergency room. Advised to follow with Dr. Castro Ceballos[[facility] database development project manager] in 1 week for further evaluation, biopsy and management of the left lung mass. Advised to see private database development project manager per schedule Follow up with: SARAH ASHER MD [Primary Care Provider] - 7 Days PRICILLA PEDROMO MD [Staff Physician] - 7 Days
--- NOTE | 2021-12-01 17:15 | Magnetic Resonance Report ---
MRI BRAIN WITHOUT AND WITH CONTRAST INDICATION / CLINICAL INFORMATION: Seizure disorder. TECHNIQUE: Multiplanar, multisequence MR images of the brain were obtained. Contrast dose report: Clairscan: 15 mL administered intravenously. COMPARISON: Head CT 11/25/2021 and MRI brain 11/27/2021 FINDINGS: BRAIN / INTRACRANIAL CONTENTS: A persistent region of restricted diffusion is observed in the right sharif radiata. This measures ab out 1.2 x 1.6 cm in transverse dimension by 1.0 cm in superior-inferior dimension. Corresponding milagro on of decreased signal intensity is observed on ADC map images. Corresponding signal changes are obse rved on FLAIR and T2-weighted scans. This represents a region of acute infarction not significantly c hanged in comparison to recent previous study. There is no indication of hemorrhagic transformation. No new foci of acute infarction are identified. Microvascular ischemic changes are again demonstrated in the white matter both cerebral hemispheres. Again demonstrated is evidence of a remote small deep right thalamic infarction. These findings are s table. Ventricles and cortical sulci are at the upper limit of normal for size. There is no mass effect. No evidence of intracranial hemorrhage or extra-axial fluid collection is seen The brainstem and cerebellum have an unremarkable appearance. MIDLINE STRUCTURES:No abnormalities are seen to involve the pituitary gland. Pineal region has an unr emarkable appearance. CRANIOCERVICAL JUNCTION: No abnormalities are identified at the craniocervical junction. VASCULAR FLOW-VOIDS: Normal flow-voids are present within the major intracranial vessels. ORBITS: The orbits have an unremarkable appearance. SINUSES / MASTOIDS: There is no indication of inflammatory disease in the paranasal sinuses or mastoi d air cells. Following the administration of intravenous contrast enhancement of normal vascular structures is dem onstrated. No areas of abnormal contrast enhancement are identified. IMPRESSION: 1. Again demonstrated is a region of acute infarction involving right sharif radiata as described abo ve. There is no evidence of hemorrhagic transformation. Signer Name: Bon Barrios MD Signed: 12/01/2021 5:11 PM Workstation Name: [id number]
== END 2021-12-01 16:45 | DRG 65 ==
LOC: ED 22:07 → 4A 11-26 00:50
PROVIDERS: ADMIT Internal Medicine Geriatric Medicine; ATTEND Internal Medicine
DX: I63.9 Cerebral infarction, unspecified (principal); G81.94 Hemiplegia, unspecified affecting left nondominant side; I10 Essential (primary) hypertension; R91.8 Other nonspecific abnormal finding of lung field; E11.9 Type 2 diabetes mellitus without complications; E78.5 Hyperlipidemia, unspecified; F14.10 Cocaine abuse, uncomplicated; F12.10 Cannabis abuse, uncomplicated; F17.210 Nicotine dependence, cigarettes, uncomplicated; Z20.822 Contact with and (suspected) exposure to COVID-19
CPT/HCPCS: 36415; 70450; 70496; 70498; 70551; 70553; 71045; 71250; 80048; 80053; 80061; 80307; 80320; 82550; 82553; 82962; 84484; 85025; 85610; 85670; 85730; 93005; 93306; 93880; 94640; 94760; G0378; Q0162; Q9967; A9575; C8929; G0480; J0360; J1644; J1815; J2270; J2405; J7030; U0003